=== PATIENT | male | born 2000 | race African-American/Black ===

== ENCOUNTER 2020-09-17 21:50 | Inpatient (IN) ==
[~2020-09-17 21:50] MED LIST: CALCIUM CHLORIDE 10% 10 ML SYR IV ONE; SODIUM BICARB 8.4% INJ 50 MEQ/50 ML SYR IV ONE; SODIUM CHLORIDE 0.9% 10ML FLUSH IV ONE
[2020-09-17] MEDS ORDERED: POTASSIUM CHLORIDE 10 MEQ / 100ML WTR IV ONE (22:06)
[2020-09-17] MEDS ORDERED: POTASSIUM CHLORIDE / WTR 20 MEQ/100 ML PLCT IV ONE ×2 (22:13→22:55)
[2020-09-17 22:19] LABS: Basophils # (auto) 0.01 K/uL (0-0.2); Basophils % (auto) 0.1 %; Eosinophils # (auto) 0.01 K/uL (0-0.5); Eosinophils % (auto) 0.1 %; Hematocrit (blood only) 34.1 % (42-52); Hemoglobin 11.4 g/dL (14.0-18.0); Immature Granulocytes # (auto) 0.18 K/uL (0.00-0.02); Immature Granulocytes % (auto) 1.7 %; Lymphocytes # (auto) 2.55 K/uL (1.2-3.4); Lymphocytes % (auto) 24.1 %; Mean Corpuscular Hemoglobin 25.4 pg (25-34); Mean Corpuscular Hgb Conc 33.4 g/dL (32-36); Mean Corpuscular Volume 75.9 fL (80-100); Mean Platelet Volume 11.2 fL (7.4-10.4); Monocytes % (auto) 9.5 %; Neutrophils # (auto) 6.82 K/uL (1.4-6.5); Neutrophils % (auto) 64.5 %; Platelet Count 175 K/uL (130-400); RDW Coefficient of Variation 16.2 % (11.5-14.5); RDW Standard Deviation 44.8 fL (36.4-46.3); Red Blood Count 4.49 M/uL (4.7-6.1); White Blood Count 10.57 K/uL (4.8-10.8)
[2020-09-17] MEDS ORDERED: STAT IV Infusion **Titration per Protocol STA ×3 (22:24→22:30)
[2020-09-17] MEDS ORDERED: NOREPINEPHRINE/D5W 8 MG/508 ML IV ONE ×2 (22:27→23:56)
[2020-09-17] MEDS ORDERED: NOREPINEPHRINE/D5W 8 MG/508 ML BAG IV SCH (22:30)
[2020-09-17] MEDS ORDERED: EPINEPHrine/NSS 4 MG/254 ML BAG IV SCH (22:30)
[2020-09-17] MEDS ORDERED: VASOPRESSIN 20 UNITS in 0.9 % SODIUM CHLORIDE 100 ML IV SCH (22:30)
[2020-09-17 22:41] LABS: Alanine Aminotransferase 631 U/L (12-78); Albumin Level 2.8 gm/dl (3.4-5.0); Aspartate Aminotransferase 723 U/L (15-37); BUN Creatinine Ratio 11.8 (10-20); Bilirubin,Total 0.6 mg/dl (0.2-1); Blood Urea Nitrogen 39 mg/dl (7-18); Calcium 11.7 mg/dl (8.5-10.1); Carbon Dioxide 10 mmol/L (21-32); Chloride 107 mmol/L (98-107); Est GFR (African American) 29.6; Est GFR (Non-African American) 25.6; Glucose 800 mg/dl (70-99); Magnesium 5.2 mg/dl (1.8-2.4); Sodium 145 mmol/L (136-145)
[2020-09-17] MEDS ORDERED: SEVERE STRESS LEVEL ONE (22:43)
[2020-09-17] MEDS: VASOPRESSION #-# Do NOT Titrate #-# Option IV SCH (22:43)
[2020-09-17] MEDS ORDERED: INSULIN PROTOCOL GOAL RANGE ONE (22:43)
[2020-09-17] MEDS ORDERED: INSULIN REGULAR 250 UNITS in SODIUM CHLORIDE 0.9% 247.5 ML IV SCH (22:45)
--- NOTE | 2020-09-17 22:45 | Emergency Department Note ---
ED Visit Note I was asked to assist Dr. Mcdonough with placing a central line for a critical patient during a code. Procedure note: Left subclavian line supraclavicular approach Using emergent sterile technique during a patient code, a triple-lumen catheter was placed in the left subclavian vein using supraclavicular approach with ultrasound guidance. Seldinger technique was used. Triple-lumen catheter was placed. All ports flushed well. All ports returned blood. The ports were capped. The line was sutured in place. Sterile dressing placed. The patient did not receive any anesthesia as he was unresponsive at that time. Chest x-ray is pending. .
[2020-09-17 22:47] LABS: Alkaline Phosphatase 71 U/L (45-117); Globulin 2.9 gm/dl (2.5-4.0); Total Protein 5.7 gm/dl (6.4-8.2); Troponin I 0.022 ng/ml (0-0.045)
[2020-09-17] MEDS ORDERED: STAT IV STA (22:48)
--- NOTE | 2020-09-17 22:51 | Procedure Note ---
Procedure Note Date of Service September 17, 2020 Procedure date: Noted above Procedure: Radial artery cannulation Pre-procedure Diagnosis: Need for invasive monitoring, hypotension/frequent blood draws Post-procedure Diagnosis: same as above Prior to Procedure: Informed Consent: Emergent consent implied Attending Staff: Ronel Brothers DO Skin Prep: Chlorhexidine The identity of the patient was confirmed and a bedside time out was performed. Description of Procedure: After sterile prep and sterile drape utilizing standard sterile technique the superficial skin of the right radial artery was anesthetized. The target artery was identified via dynamic ultrasound guidance and entered with a 20-gauge arrow Angiocath. Pulsatile bright red blood return was noted. Via modified Seldinger technique the self-contained guidewire was advanced and the Angiocath advanced over the guidewire. The guidewire was removed and brisk arterial blood return was noted. The pressure monitor was connected, and the arterial line was secured via commercial securement device. A sterile dressing was then applied. Complications: None Estimated blood loss: Trace Patient tolerated the procedure well. Coding
[2020-09-17 22:57] LABS: iSTAT Arterial Blood Gas HCO3 14 meg/L (19-24); iSTAT Arterial Blood Gas pCO2 57 mmHg (35-46); iSTAT Arterial Blood Gas pH 7.01 (7.35-7.45); iSTAT Arterial Blood Gas pO2 > 420 mmHg (80-95); iSTAT Carbon Dioxide 16 mmol/L (24-31); iSTAT Hematocrit 30 % (42-52); iSTAT Hemoglobin 10.2 g/dl (14.0-18.0); iSTAT Potassium 2.8 mmol/L (3.3-5.0); iSTAT Sodium 144 mmol/L (135-144)
[2020-09-17] MEDS ORDERED: SODIUM BICARBONATE 8.4% 150 MEQ, POTASSIUM CHLORIDE 40 MEQ in DEXTROSE 5% 1,000 ML IV SCH (23:00)
--- NOTE | 2020-09-17 23:02 | Critical Care Consultation ---
Date of Consultation September 17, 2020 Assessment & Plan (1) Admitted to intensive care unit: Reason Critically Ill: 20-year-old male who is status post cardiac arrest x2 with ROSC with approximate total cumulative downtime of 45 to 50 minutes. Patient with significant metabolic acidosis resulting in significant metabolic derangement including hypokalemia. Concerns for severe DKA and hyperglycemia requiring insulin drip and close electrolyte monitoring/replacement. NEURO - * CAM ICU: Unable to assess secondary to current level of extremitas. * Unresponsive: * Patient remains unresponsive and without response to noxious stimuli status post cardiac arrest. * Will obtain CT head when/if patient becomes clinically stable. * Will hold on sedation at this point. * Patient already hypothermic. Will aim to maintain goal temperature of 34 C for chance of neuro protection. CARDIAC/VASCULAR - * Cardiac arrest: * Likely secondary to profound acidemia in the setting of metabolic acidosis. * Patient had approximate total cumulative downtime of 45 to 50 minutes per reports. * Will continue to perform serial EKGs. * Will continue with therapeutic hypothermia and aim for goal core temp of 34 C. * Requiring escalating doses of pressors: Levophed, epinephrine, vasopressin. * Unfortunately, with the degree of metabolic acidosis, these drugs are likely minimally effective. * Agree with a.m. echocardiogram for cardiac function status post arrest. * Monitor on telemetry. RESPIRATORY - * Respiratory failure: * In the setting of cardiac arrest. * Ventilating well on standard settings. * Will hyperventilate in an effort to aid in reducing effects of metabolic acidosis. GI/NUTRITION - * Patient with nausea, vomiting, diarrhea, and abdominal pain prior to arrest.: * Abdomen soft and without distention or guarding. * Will perform CT of abdomen/pelvis when patient clinically stable. * Elevated LFTs likely secondary to shock liver. RENAL/LYTES - * Renal failure: * Likely secondary to dehydration and hypoperfusion injury in the setting of cardiac arrest. * Will continue with aggressive IV fluid resuscitation. * Hypokalemia: * Possibly from GI losses with reports of nausea, vomiting, and diarrhea for 1 week. * Certainly in combination of metabolic acidosis, this makes the patient at much higher risk for cardiac dysrhythmias. * Central line in place so we will continue to replace IV vitamin K aggressively with 20 mEq via central line every hour. * Will add potassium to IV fluids as well. * Unfortunately, patient is requiring insulin drip as well as sodium bicarbonate which unfortunately will likely continue to deplete potassium levels making replacement much more difficult. * Metabolic acidosis: * Multifactorial in the setting of cardiac arrest with acute renal failure, hyperglycemia, and lactic acidosis. * Initially received bicarb pushes. * Will start bicarb drip with 3 A sodium bicarbonate and sterile water and 40 mEq of potassium chloride. - * Short in place - Strict I&Os. ENDO - * DKA: * BSGs per unit protocol. ISS --> gtt per unit policy. * Patient without known history of diabetes. * Patient was with symptoms of nausea, vomiting, diarrhea, abdominal pain for approximately 1 week. Question if patient was presenting with progressively worsening DKA at that point. * No reports as the patient's respiratory status or any degree of compensation while in the [facility]. HEME - * Stable H&H. ID - * Without acute infectious findings. * Will add CT chest, head, and abdomen/pelvis for possible sources. * COVID-19 PCR testing negative. LINES/IV ACCESS - * PIVs x2 * LEFT subclavian CVL * RIGHT radial arterial line * Short catheter * ET tube * OG DVT PROPHYLAXIS - * Will hold currently given recent trauma and arrest with risk of bleeding. * SCDs I have personally spent 80 minutes of critical care time in the direct management of this patient. This is a life/limb threatening event. This includes time spent evaluating patient, direct bedside care, chart review, placing orders, interpretation of diagnostic studies, discussion with consultants, patient, and family members, as well as other required patient management activities. This time is exclusive of all separately billable procedures, and teaching time and separate from and in addition to any other critical care service time. Thank you for allowing us to participate in the care of this patient. Please refer to my attending physician's documentation for any further recommendations. (2) Cardiac arrest: (3) JEROMY (acute kidney injury): (4) Acute hypokalemia: (5) Metabolic acidosis: (6) DKA (diabetic ketoacidoses): (7) Hypothermia: (8) Abnormal LFTs: (9) Hypermagnesemia: Supervising Physician Co-Signing Physician Notes I have personally evaluated and examined this patient. I agree with assessment and plan of Morgan Koenig PA-C. Cardiac arrest with return of spontaneous circulation. Patient is already hypothermic, will continue with surface cooling as intravascular cooling devices already being utilized. Significant hypokalemia will require aggressive repletion. Patient certainly critically ill. History of Present Illness History of Present Illness Patient is a 20-year-old male with no reported significant past medical history who presented to the emergency department as a CODE BLUE. The patient is currently incarcerated at [facility]. Per discussion with ED provider, the patient had recently [facility] secondary to complaints of nausea, vomiting, and diarrhea. Apparently, the patient was found on the ground today. EMS was contacted, and the patient did arrest prior to EMS arrival. Patient was down for approximately 10 minutes prior to EMS arrival. CPR was initiated by [facility] staff. Patient received 4 rounds of epinephrine and high- quality CPR with return of spontaneous circulation upon arrival to the emergency department. Patient had been intubated in the field. Patient's blood glucose was noted to be severely elevated earlier in the day. He had received 20 units of subcu insulin at some point. The patient received bicarb doses during resuscitation. Unfortunately, patient was found to be hypokalemic as well as in severe metabolic acidosis. He remained hypotensive while on max doses of epinephrine. Addition of norepinephrine and vasopressin in the emergency department. Orders placed for bicarb drip with potassium supplementation as well as potassium riders. CT scans were ordered, however unable to be obtained secondary to patient's instability. I did reach out to the [facility] at [facility] ([phone]) and spoke with staff nurse, Earline. She informed me that the patient had been admitted to the [facility] on 09/15 with complaints of nausea, vomiting, and diarrhea. Apparently, the patient had some complaints of abdominal pain as well. Per his records, he had been receiving Phenergan regularly. He did receive a liter of fluid at some point during his stay. Patient was tested for COVID-19 which had come back negative. She reports that per the report that she received, the patient was found facedown on the unit. He initially was mumbling and semicoherent when found. EMS was contacted, but prior to their arrival, the patient was found to be extremely hypotensive and hypothermic. Patient did lose his pulse and CPR was initiated which was conducted for approximately 10 minutes prior to EMS arrival. No labs other than glucose or COVID-19 testing had been obtained during his 48-hour stay. Patient is with no other reported past medical history. Allergies Allergy/AdvReac Type Severity Reaction Status Date / Time No Known Allergies Allergy Unverified 09/17/20 23:22 Home Medications Medication Instructions Recorded Confirmed Type No Known Home Medications 09/17/20 09/17/20 History mirtazapine 15 mg PO HS 09/17/20 09/17/20 History Patient History Medical History Diabetes Social History Smoking Status: Unknown if ever smoked Preferred Language: [place] Beliefs That Will Affect Care: None Current Living Situation: Other current occupational status: other Feels Safe at Home: Yes Review of Systems Review of Systems: Unobtainable due to endotracheal tube and Unobtainable due to reduced consciousness Physical Exam Physical Exam: VITAL SIGNS - Vital signs and nursing notes were reviewed. GENERAL - 20-year-old male appearing his stated age who is in severe extremis. SKIN - Without rashes. HEAD - NC/AT. EYES - Pupils fixed and non-reactive. EARS - No deformities of external structures noted on gross examination bilaterally. NOSE - Midline and without cyanosis. No epistaxis or purulent drainage noted. MOUTH/OROPHARYNX - ET Tube in place. NECK - Neck with FROM. Supple to palpation. No nuchal rigidity. LUNGS - Normal vesicular breath sounds CTA B/L. No wheezes, rales, or rhonchi appreciated. CARDIAC - RRR with S1/S2. No murmur, rubs, or gallops appreciated. ABDOMEN - Abdominal contour flat without pulsations or visible masses. BS hypoactive all four quadrants. No distention or guarding noted. EXTREMITIES - No clubbing or peripheral cyanosis. No pretibial edema present. +2/5 radial pulses palpated throughout. NEUROLOGIC - No focal neurological deficits appreciated. Pupils fixed and non- reactive. Slight cough with suctioning. No response to noxious stimuli. Results & Data Results & Data ([facility]) Vital Signs (Past 12 Hours) Vital Signs Temp Pulse Resp Pulse Ox 09/17/20 22:21 100 09/17/20 22:00 31 C L 75 21 100 Coding Level of Care Code Critical Care 1st 30-74 mins Diagnoses Admitted to intensive care unit Z78.9 Cardiac arrest I46.9 JEROMY (acute kidney injury) N17.9 Acute hypokalemia E87.6 Metabolic acidosis E87.2 DKA (diabetic ketoacidoses) E13.11 Diabetes mellitus complication detail: with coma Diabetes mellitus type: other specified (including WENDY) Hypothermia T68.XXXA Encounter type: initial encounter Abnormal LFTs R94.5 Hypermagnesemia E83.41 Time Spent (min) 80 (1) DKA (diabetic ketoacidoses) Diabetes mellitus complication detail: with coma Diabetes mellitus type: other specified (including WENDY) Qualified Code(s): E13.11 - Other specified diabetes mellitus with ketoacidosis with coma (2) Hypothermia Encounter type: initial encounter Qualified Code(s): T68.XXXA - Hypothermia, initial encounter
[2020-09-17] MEDS: [UNRECOGNIZED DRUG - OTHER] IV SCH (23:19)
[2020-09-17] MEDS: MAX IV SCH (23:19)
[2020-09-17 23:29] LABS: Appearance Urine Clear (Clear); Bacteria Urine Automated Negative (Negative); Bilirubin Urine Negative (Negative); Blood Urine 3+ (Negative); Color Urine Yellow; Epithelial Cell Urine Auto >30 /lpf (0-5); Glucose Urine UA 3+ (Negative); Ketones Urine 3+ (Negative); Leukocyte Esterase Urine Negative (Negative); Nitrite Urine Negative (Negative); Protein Urine 1+ (Negative); RBC Urine Automated 0-4 /hpf (0-4); Specific Gravity Urine 1.025 (1.000-1.030); Urobilinogen Urine Negative (Negative)
--- NOTE | 2020-09-17 23:31 | Emergency Department Note ---
History of Present Illness General Chief complaint: Cardiac Arrest/CPR Stated complaint: CARDIAC ARREST Source: EMS and RN notes reviewed Mode of arrival: EMS Limitations: clinical acuity History of Present Illness Provider complaint: Cardiac arrest Onset (ago): hour(s) History is limited due to the patient being intubated and status post cardiac arrest. I did obtain history from the charge nurse who spoke to the the [facility] as well as the county auditor who brought him in. Apparently this patient was not feeling well yesterday with flulike symptoms and went to the [facility]. He was admitted to the [facility] where he was found to have a blood sugar over 600. He did have a COVID-19 test which was reported as negative. Today he complained of some abdominal pain. They later reassessed the patient about 40 minutes later and he was unresponsive with agonal breathing. They found his blood sugar to be over 600. He was given 20 units of insulin subcutaneously. He then proceeded to go into cardiac arrest. When the paramedics arrived he was in asystole. He had no IV access so a IO was placed. CPR was started and he did receive 3 rounds of epinephrine. He was also given an amp of calcium and 2 A of bicarb. They did obtain ROSC. The patient was intubated and transported here. Home Medications Medication Instructions Recorded Confirmed Type No Known Home Medications 09/17/20 09/17/20 History mirtazapine 15 mg PO HS 09/17/20 09/17/20 History Allergies Allergy/AdvReac Type Severity Reaction Status Date / Time No Known Allergies Allergy Unverified 09/17/20 23:22 Past Med/Surg History Medical History Diabetes Social History Smoking Status: Unknown if ever smoked Preferred Language: Pashto current occupational status: other Feels Safe at Home: Yes Review of Systems See HPI for pertinent positives & negatives. Unobtainable due to endotracheal tube Physical Exam Vital Signs Vital Signs - 24 hr 09/17/20 22:00 09/17/20 22:21 09/17/20 22:59 Temperature 31 C L Temperature Source Short Cath ( Temp Sensing) Pulse Rate 75 Respiratory Rate 21 Respiratory Effort / Characteristics Mechanically Ventilated Pulse Oximetry 100 100 Oxygen Delivery Method Mechanical Vent Mechanical Vent Mechanical Vent Sepsis Recent Fever Within 48 Hours No Sepsis New/Unexplained Change in Mental Status Yes Sepsis Action Taken by Nursing Physician Notified The physical exam is limited due to the patient's condition. Constitutional: Vital signs reviewed. Eyes: Pupils are equal round and minimally reactive to light. Conjunctiva are noninjected. HENT: Intubated with endotracheal tube. Normocephalic atraumatic without hemo tympanum. Respiratory: Clear to auscultation bilaterally. Breath sounds are equal bilaterally. Cardiovascular: Irregularly irregular rhythm. Normal rate. GI: Soft and nondistended. Musculoskeletal: No peripheral edema. IO in the right mann. Integumentary: No cyanosis. Neurological: The patient is unresponsive. Psychiatric: Unable to assess. Course Administered Medications Potassium Chloride (K Anurag / Wtr) 20 meq in 100 mls @ 50 mls/hr IV ONE ONE Stop: 09/18/20 00:12 Last Admin: 09/17/20 22:33 Dose: Not Given Documented by: [id number] Vasopressin 20 units/ Sodium (Chloride) 101 mls @ 12.12 mls/hr IV .Q8H20M [facility] Stop: 10/17/20 22:44 Last Admin: 09/17/20 22:43 Dose: 0.04 unit/min, 12.1 mls/hr Documented by: [id number] Cosigned by: [id number] Insulin Human Regular 250 (units/ Sodium Chloride) 250 mls @ 4.2 mls/hr IV .Q24H [facility]; Protocol Stop: 10/17/20 22:44 Last Admin: 09/17/20 23:18 Dose: 4.2 units/hr, 4.2 mls/hr Documented by: [id number] Cosigned by: [id number] Sodium Bicarbonate 150 meq/Potassium Chloride 40 meq/Dextrose 1,170 mls @ 200 mls/hr IV .Q5H51M [facility] Stop: 10/17/20 22:59 Last Admin: 09/17/20 23:03 Dose: 200 mls/hr Documented by: [id number] Potassium Chloride (K Anurag / Wtr) 20 meq in 100 mls @ 50 mls/hr IV ONE ONE Stop: 09/18/20 00:54 Last Admin: 09/17/20 23:19 Dose: 50 mls/hr Documented by: [id number] Epinephrine HCl () 16 mg in 250 mls @ 2.119 mls/hr IV .Q24H [facility]; Protocol Stop: 10/17/20 22:59 Last Admin: 09/17/20 23:19 Dose: 0.5 mcg/kg/min, 53 mls/hr Documented by: [id number] Cosigned by: [id number] Discontinued Medications Epinephrine HCl () 4 mg in 254 mls @ 8.611 mls/hr IV .Q24H [facility]; Protocol Stop: 10/17/20 22:29 Last Titration: 09/17/20 23:25 Dose: 0 mcg/kg/min, 0 mls/hr Documented by: [id number] Titration: 09/17/20 22:51 Dose: 1 mcg/kg/min, 430.5 mls/hr Documented by: [id number] Admin: 09/17/20 22:37 Dose: 0.7 mcg/kg/min, 301.4 mls/hr Documented by: [id number] Cosigned by: [id number] Norepinephrine Bitartrate (Levophed/D5w) 8 mg in 508 mls @ 21.527 mls/hr IV .[id number] [facility]; Protocol Stop: 10/17/20 22:29 Last Titration: 09/17/20 22:50 Dose: 0.6 mcg/kg/min, 258.3 mls/hr Documented by: [id number] Admin: 09/17/20 22:34 Dose: 0.4 mcg/kg/min, 172.2 mls/hr Documented by: [id number] Cosigned by: [id number] Norepinephrine Bitartrate (Norepinephrine/D5w 8 Mg/508 Ml) Confirm Administered Dose 8 mg IV .STK-MED ONE Stop: 09/17/20 22:28 Last Admin: 09/17/20 22:37 Dose: Not Given Documented by: [id number] Potassium Chloride (Potassium Chloride 10 Meq / 100ml Wtr) Confirm Administered Dose 40 meq IV .STK-MED ONE Stop: 09/17/20 22:07 Last Admin: 09/17/20 22:33 Dose: 40 meq Documented by: [id number] Critical Care Time Critical Care Time: Yes Total Critical Care Time: 50 I have personally spent approximately 50 minutes of critical care time in the direct management of this patient. This includes bedside care, interpretation of diagnostic studies, and testing, discussion with consultants, patient, and family members, and other required patient management activities. These minutes are in excess of all separately billable procedures. Medical Decision Making Differential Diagnosis Cardiac arrest, metabolic derangement, DKA, electrolyte abnormality, metabolic acidosis, PE, intracranial hemorrhage Medical Records Attestation: I reviewed the patient's medical records. I did perform a limited focused review of portions of the patient's old chart on the electronic medical record. The patient has had no prior visits to this hospital. Home Medications Current Medication List: was personally reviewed by me Laboratory Data Attestation: I reviewed the patient's lab results. Result diagrams: 09/17/20 22:00 09/17/20 22:00 Lab Results 09/17/20 09/17/20 09/17/20 Range/Units 22:00 22:00 22:38 WBC 10.57 (4.8-10.8) K/uL RBC 4.49 L (4.7-6.1) M/uL Hgb 11.4 L (14.0-18.0) g/dL POC Hgb (14.0-18.0) g/dl Hct 34.1 L (42-52) % POC Hct (42-52) % MCV 75.9 L (80-100) fL MCH 25.4 (25-34) pg MCHC 33.4 (32-36) g/dL RDW Std Deviation 44.8 (36.4-46.3) fL RDW Coeff of Fermin 16.2 H (11.5-14.5) % Plt Count 175 (130-400) K/uL MPV 11.2 H (7.4-10.4) fL Immature Gran % (Auto) 1.7 % Neut % (Auto) 64.5 % Lymph % (Auto) 24.1 % Caldwell % (Auto) 9.5 % Eos % (Auto) 0.1 % Baso % (Auto) 0.1 % Neut # (Auto) 6.82 H (1.4-6.5) K/uL Lymph # (Auto) 2.55 (1.2-3.4) K/uL Caldwell # (Auto) 1.00 H (0.11-0.59) K/uL Eos # (Auto) 0.01 (0-0.5) K/uL Baso # (Auto) 0.01 (0-0.2) K/uL Immature Gran # (Auto) 0.18 H (0.00-0.02) K/uL POC pH (7.35-7.45) POC pCO2 (35-46) mmHg POC pO2 (80-95) mmHg POC HCO3 (19-24) katlin/L POC Total CO2 (24-31) mmol/L POC Base Excess (-9-1.8) katlin/L POC ABG O2 Sat (90-95) % POC Sodium (135-144) mmol/L Sodium 145 (136-145) mmol/L POC Potassium (3.3-5.0) mmol/L Potassium 2.0 L* (3.5-5.1) mmol/L Chloride 107 (98-107) mmol/L Carbon Dioxide 10 L (21-32) mmol/L Anion Gap 28.0 H (3-11) BUN 39 H (7-18) mg/dl Creatinine 3.27 H (0.6-1.4) mg/dl Est Cr Clr Drug Dosing Not Reportable Est GFR ( Amer) 29.6 Est GFR (Non-Af Amer) 25.6 BUN/Creatinine Ratio 11.8 (10-20) Glucose 800 H* (70-99) mg/dl POC Glucose > 600 H* (70-99) mg/dl Calcium 11.7 H (8.5-10.1) mg/dl Magnesium 5.2 H* (1.8-2.4) mg/dl Total Bilirubin 0.6 (0.2-1) mg/dl AST 723 H (15-37) U/L ALT 631 H (12-78) U/L Alkaline Phosphatase 71 (45-117) U/L Troponin I 0.022 (0-0.045) ng/ml Total Protein 5.7 L (6.4-8.2) gm/dl Albumin 2.8 L (3.4-5.0) gm/dl Globulin 2.9 (2.5-4.0) gm/dl Albumin/Globulin Ratio 1.0 (0.9-2) Beta-Hydroxybutyric Acd (0.2-2.81) mg/dl TSH 1.760 (0.300-4.500) uIu/ml 09/17/20 Range/Units 22:43 WBC (4.8-10.8) K/uL RBC (4.7-6.1) M/uL Hgb (14.0-18.0) g/dL POC Hgb 10.2 L (14.0-18.0) g/dl Hct (42-52) % POC Hct 30 L (42-52) % MCV (80-100) fL MCH (25-34) pg MCHC (32-36) g/dL RDW Std Deviation (36.4-46.3) fL RDW Coeff of Fermin (11.5-14.5) % Plt Count (130-400) K/uL MPV (7.4-10.4) fL Immature Gran % (Auto) % Neut % (Auto) % Lymph % (Auto) % Caldwell % (Auto) % Eos % (Auto) % Baso % (Auto) % Neut # (Auto) (1.4-6.5) K/uL Lymph # (Auto) (1.2-3.4) K/uL Caldwell # (Auto) (0.11-0.59) K/uL Eos # (Auto) (0-0.5) K/uL Baso # (Auto) (0-0.2) K/uL Immature Gran # (Auto) (0.00-0.02) K/uL POC pH 7.01 L* (7.35-7.45) POC pCO2 57 H (35-46) mmHg POC pO2 > 420 H (80-95) mmHg POC HCO3 14 L (19-24) katlin/L POC Total CO2 16 L (24-31) mmol/L POC Base Excess -17.0 L (-9-1.8) katlin/L POC ABG O2 Sat 100.0 H (90-95) % POC Sodium 144 (135-144) mmol/L Sodium (136-145) mmol/L POC Potassium 2.8 L (3.3-5.0) mmol/L Potassium (3.5-5.1) mmol/L Chloride (98-107) mmol/L Carbon Dioxide (21-32) mmol/L Anion Gap (3-11) BUN (7-18) mg/dl Creatinine (0.6-1.4) mg/dl Est Cr Clr Drug Dosing Est GFR ( Amer) Est GFR (Non-Af Amer) BUN/Creatinine Ratio (10-20) Glucose (70-99) mg/dl POC Glucose (70-99) mg/dl Calcium (8.5-10.1) mg/dl Magnesium (1.8-2.4) mg/dl Total Bilirubin (0.2-1) mg/dl AST (15-37) U/L ALT (12-78) U/L Alkaline Phosphatase (45-117) U/L Troponin I (0-0.045) ng/ml Total Protein (6.4-8.2) gm/dl Albumin (3.4-5.0) gm/dl Globulin (2.5-4.0) gm/dl Albumin/Globulin Ratio (0.9-2) Beta-Hydroxybutyric Acd (0.2-2.81) mg/dl TSH (0.300-4.500) uIu/ml Imaging Data Attestation: I personally reviewed and interpreted this imaging study as follows: My Impression: Chest x-ray per my interpretation shows no infiltrate or pneumothorax. Endotracheal tube is in place. Left subclavian central line in place as well. ECG Data Attestation: I personally reviewed and interpreted this ECG as follows: Indication: + other (Status post cardiac arrest) Rate (beats per minute): 85 Rhythm: + atrial fibrillation ECG Findings: + PVCs and + Other (Widened QRS) Comparison ECG Date: no prior available MDM Narrative I did evaluate the patient immediately on arrival as noted above. IV access was established. The patient is hypothermic. I did place an order for continuous cardiac monitoring. The monitor showed an irregular wide-complex rhythm without visible P waves. He did have a pulse. Systolic blood pressure was 103. I did order and personally review the patient's 12-lead EKG as described above. He has what appears to be atrial fibrillation with a widened QRS. The patient subsequently went into cardiac arrest. His rhythm showed asystole. CPR was initiated. The patient was given IV boluses of epinephrine. I did order and review the patient's blood work as noted in the electronic medical record. I- STAT labs demonstrated a potassium of less than 2, hyperglycemia and a creatinine of 2.5. I did speak to the pharmacist and the patient was started on 20 mEq of IV KCl over an hour. ROSC was obtained. The patient was started on epinephrine drip. A central line was placed in the left subclavian vein by Dr. Lemus and the patient's rate was changed to 40 mEq over an hour. I did order and personally reviewed the images of the patient's chest x-ray as described above. Endotracheal tube is in place and left subclavian line is in place as well. No pneumothorax is noted. I did order a urine analysis and urine drug screen. I did order CTs of the head, abdomen, pelvis and chest but the patient was too unstable to go to CAT scan. I did discuss the case with the ICU doctor as well as the hospitalist. The patient's blood pressure was still low and so IV Levophed drip was started as well as IV vasopressin. He was given 2 additional amps of bicarb IV. His blood gas showed a pH of 7.0. His other labs demonstrated hemoglobin 11.4. His white count was 10.5. Platelet count was within normal limits. Magnesium is elevated at 5.2. Glucose is 800. Creatinine is 3.27. Potassium was reported at 2. LFTs show elevation in the transaminases. I did order a repeat renal panel. This showed a potassium of 3. 1. Creatinine is 3.1. Magnesium is still 5.2 and glucose has come down to 693. The patient was transferred to the ICU in critical condition. Impression & Plan Cardiac arrest, Acute hypokalemia, JEROMY (acute kidney injury), Hypermagnesemia, Abnormal LFTs, Anemia, Hypothermia, DKA (diabetic ketoacidoses) Discharge Plan Visit Data Chief Complaint: Cardiac Arrest/CPR Stated Complaint: CARDIAC ARREST ED Provider: Don Mcdonough Discharge Problem: Cardiac arrest, Acute hypokalemia, JEROMY (acute kidney injury), Hypermagnesemia, Abnormal LFTs, Anemia, Hypothermia, DKA (diabetic ketoacidoses) Patient Disposition: Admitted As Inpatient Discharge Problem: Anemia Qualifiers: Anemia type: unspecified type Qualified Code(s): D64.9 - Anemia, unspecified Hypothermia Qualifiers: Encounter type: initial encounter Qualified Code(s): T68.XXXA - Hypothermia, initial encounter DKA (diabetic ketoacidoses) Qualifiers: Diabetes mellitus type: other specified (including WENDY) Diabetes mellitus complication detail: with coma Qualified Code(s): E13.11 - Other specified diabe chay mellitus with ketoacidosis with coma
[2020-09-17 23:38] LABS: BUN Creatinine Ratio 11.9 (10-20); Blood Urea Nitrogen 37 mg/dl (7-18); Calcium 9.3 mg/dl (8.5-10.1); Carbon Dioxide 7 mmol/L (21-32); Chloride 111 mmol/L (98-107); Est GFR (African American) 31.6; Est GFR (Non-African American) 27.3; Glucose 693 mg/dl (70-99); Magnesium 5.2 mg/dl (1.8-2.4); Potassium 3.1 mmol/L (3.5-5.1); Sodium 148 mmol/L (136-145)
[2020-09-17 23:44] LABS: Amphetamines+Metham, Urine Neg (Neg); Barbiturates, Urine Neg (Neg); Benzodiazepine, Urine Neg (Neg); Cocaine, Urine Neg (Neg); MDMA (Ecstacy), Urine Neg (Neg); Methadone, Urine Neg (Neg); Opiate, Urine Neg (Neg); Phencyclidine, Urine Neg (Neg)
[2020-09-18] MEDS ORDERED: SODIUM BICARB 8.4% INJ 50 MEQ/50 ML SYR IV STA ×2 (00:05→05:52)
[2020-09-18] MEDS ORDERED: SODIUM BICARB 8.4% INJ 50 MEQ/50 ML SYR IV ONE ×2 (00:07→11:09)
[2020-09-18 00:16] LABS: iSTAT Art Bld Gas pCO2 Correct 23 mmHg (35-46); iSTAT Art Bld Gas pH Corrected 6.934 (7.35-7.45); iSTAT Arterial Blood Gas HCO3 5 meg/L (19-24); iSTAT Arterial Blood Gas pCO2 30 mmHg (35-46); iSTAT Arterial Blood Gas pH 6.86 (7.35-7.45); iSTAT Arterial Blood Gas pO2 291 mmHg (80-95); iSTAT Arterial Blood Gas pO2 C 260; iSTAT Carbon Dioxide 6 mmol/L (24-31); iSTAT FiO2 50 %; iSTAT Hematocrit 32 % (42-52); iSTAT Hemoglobin 10.9 g/dl (14.0-18.0); iSTAT Potassium 2.8 mmol/L (3.3-5.0); iSTAT Site Art Line; iSTAT Sodium 138 mmol/L (135-144)
[2020-09-18] MEDS ORDERED: ICU PROTOCOL FOR HYPERGLYCEMIA PRN (00:23)
[2020-09-18] MEDS ORDERED: ALBUT/IPRATROP 3MG/0.5MG NEB 3 ML VIAL INH PRN (00:23)
[2020-09-18] MEDS: Double Conc 32mcg/mL; 16mg in 500mL IV SCH ×2 (00:27→02:14)
[2020-09-18] MEDS ORDERED: PHARMACY GLYCEMIC MGMT CONSULT PRN (00:31)
[2020-09-18 00:34] LABS: Influenza A virus by PCR Negative (Neg); Influenza B virus by PCR Negative (Neg); RSV by PCR Negative (Neg); SARS CoV2 RNA(COVID-19) InHosp NEGATIVE (Negative)
[2020-09-18] MEDS: FAMOTIDINE 20 MG in SYRINGE 3 ML IV SCH ×2 (00:57→08:02)
[2020-09-18 01:10] LABS: Hematocrit (blood only) 32.3 % (42-52)
[2020-09-18 01:44] LABS: BUN Creatinine Ratio 12.1 (10-20); Blood Urea Nitrogen 43 mg/dl (7-18); Carbon Dioxide 7 mmol/L (21-32); Chloride 103 mmol/L (98-107); Est GFR (African American) 26.7; Est GFR (Non-African American) 23.1; Glucose 954 mg/dl (70-99); Magnesium 6.9 mg/dl (1.8-2.4); Phosphorus 8.8 mg/dl (2.5-4.9); Potassium 2.3 mmol/L (3.5-5.1); Sodium 145 mmol/L (136-145)
[2020-09-18] MEDS ORDERED: GLUCOSE 10 TABS/TUBE PO PRN (02:00)
[2020-09-18] MEDS ORDERED: CARBOHYDRATES FOR HYPOGLYCEMIA PO PRN (02:00)
[2020-09-18] MEDS ORDERED: GLUCAGON FOR INJ 1 MG VIAL SQ PRN (02:00)
[2020-09-18] MEDS ORDERED: GLUCOSE 40% GEL 15 GM TUBE PO PRN (02:00)
[2020-09-18] MEDS ORDERED: DEXTROSE 50% 50 ML SYRINGE IV PRN (02:00)
[2020-09-18 02:06] LABS: Beta-Hydroxybutyrate 111.16 mg/dl (0.2-2.81)
[2020-09-18] MEDS: [UNRECOGNIZED DRUG - OTHER] IV SCH ×5 (02:13→17:13)
[2020-09-18] MEDS: POTASSIUM CHLORIDE / WTR 20 MEQ/100 ML PLCT IV SCH ×8 (02:13→11:37)
[2020-09-18] MEDS: MAX IV SCH ×5 (02:13→17:13)
[2020-09-18 02:36] LABS: iSTAT Art Bld Gas pCO2 Correct 19 mmHg (35-46); iSTAT Art Bld Gas pH Corrected 7.028 (7.35-7.45); iSTAT Arterial Blood Gas HCO3 6 meg/L (19-24); iSTAT Arterial Blood Gas pCO2 25 mmHg (35-46); iSTAT Arterial Blood Gas pH 6.96 (7.35-7.45); iSTAT Arterial Blood Gas pO2 152 mmHg (80-95); iSTAT Arterial Blood Gas pO2 C 119; iSTAT Carbon Dioxide 6 mmol/L (24-31); iSTAT FiO2 35 %; iSTAT Hematocrit 31 % (42-52); iSTAT Hemoglobin 10.5 g/dl (14.0-18.0); iSTAT Potassium < 2.0 mmol/L (3.3-5.0); iSTAT Site Art Line; iSTAT Sodium 137 mmol/L (135-144)
[2020-09-18 02:54] LABS: Troponin I 0.037 ng/ml (0-0.045)
--- NOTE | 2020-09-18 04:25 | History & Physical Report ---
Date of Service September 18, 2020 Patient was seen and examined on September 17, 2020 Assessment & Plan (1) Admitted to intensive care unit: Patient is admitted to the ICU status post cardiac arrest in the field- Consult production engineer team. Continue ventilator adjustments, with serial ABGs Present on Admission?: Yes (2) Cardiac arrest: Cardiac arrest/cardiogenic shock- Transferred to the ICU on Levophed, phenylephrine, bicarb drip. Order complete echocardiogram. Consult cardiology Present on Admission?: Yes (3) Acute hypokalemia: Replacing IV and follow serial laboratories Present on Admission?: Yes (4) JEROMY (acute kidney injury): Creatinine 3.10 with no known baseline. Question issue of diabetic nephropathy, ischemia, infection or other. Follow serial laboratories. Present on Admission?: Yes (5) Hypermagnesemia: Magnesium level 5.2 upon admission. Follow serial labs. May require dialysis Present on Admission?: Yes (6) Abnormal LFTs: Unclear etiology. Maybe associated with diabetes, obesity, hepatic steatosis, ischemia, medication induced, other Present on Admission?: Yes (7) Anemia: Hemoglobin 11.4 upon admission. Unknown baseline May be associated with blood loss, kidney injury, nutritional, other Present on Admission?: Yes (8) DKA (diabetic ketoacidoses): ABG upon arrival 7.01/57/>4 20/14/100.0 Continue bicarbonate drip, and adjusting ventilator settings. Follow serial ABGs. Continue insulin drip Present on Admission?: Yes (9) Diabetes: Check hemoglobin A1c No reported home medications Present on Admission?: Yes (10) Hypothermia: Temperature 87.8 upon admission. Not rewarmed due to hypothermia protocol Present on Admission?: Yes Admission and Anticipated Discharge Date Admission Date: September 17, 2020 History of Present Illness Chief Complaint: The patient presents to the emergency department status post cardiac arrest and intubation while in the [facility] Primary Care Provider: SHELDON Paul The patient is a 20-year-old male who reportedly had not been feeling well yesterday, and presented to the infirmary at the skilled nursing with flulike symptoms. He was found to have blood sugar over 600 while there, was given insulin 20 units subcu, and went into cardiac arrest. EMS found the patient to be in asystole, had an IO placed, CPR was started, and received 3 rounds of epinephrine and amp of calcium and 2 A of bicarb. They did obtain ROSC, the patient was intubated and transferred to [facility] ED. Pertinent laboratories: COVID-19 negative, hemoglobin 11.4, ABG showed a pH of 7.01, PCO2 57, PO2 greater than 420, bicarb 14 and O2 sat 100.0. Sodium 148 potassium 3.1, chloride 111, bicarb 7, BUN 37, creatinine 3.10 glucose is 693. Magnesium is 5.2, AST 723, ALT 631, total CK 1679, albumin 2.8, beta hydroxybutyric acid 103.50 urine drug screen was negative. Chest x-ray was normal. While in the ED, patient was started on insulin drip, norepinephrine drip, bicarbonate drip and vasopressin drip. Allergies Allergy/AdvReac Type Severity Reaction Status Date / Time No Known Allergies Allergy Unverified 09/17/20 23:22 Home Medications Medication Instructions Recorded Confirmed Type No Known Home Medications 09/17/20 09/17/20 History mirtazapine 15 mg PO HS 09/17/20 09/17/20 History Past Med/Surg History Medical History Diabetes Social History Smoking Status: Unknown if ever smoked Preferred Language: Latvian Beliefs That Will Affect Care: None Current Living Situation: Other current occupational status: other Feels Safe at Home: Yes Review of Systems Review of Systems: Unobtainable due to reduced consciousness Physical Exam 2 Physical Exam: The patient is unresponsive, intubated, normocephalic and atraumatic. HEENT--PERRL, EOMI, mucous membranes and oropharynx dry. Neck--No JVD. No bruits. Thyroid normal, trachea midline, no adenopathy. Heart--irregularly irregular. Intermittently normal. No murmurs, rubs or gallops. Lungs--clear bilaterally. Abdomen--normal bowel sounds and soft. Nontender. Nondistended. Mildly obese Extremities--no cyanosis or clubbing. No edema. Dermatologic--normal skin turgor, normal color, no abnormal lymph nodes, no rash. Neurologic--limited exam Rheumatologic--deferred Psychiatric--unresponsive Results & Data Results & Data ([facility]) Vital Signs (Past 12 Hours) Vital Signs Temp Pulse Pulse Resp BP BP Pulse Ox 09/18/20 03:41 90.1 F L 81 98 09/18/20 03:40 90.1 F L 81 129/48 L 98 09/18/20 03:36 90.0 F L 81 98 09/18/20 03:34 90.0 F L 81 120/52 L 98 09/18/20 03:31 89.8 F L 82 98 09/18/20 03:30 89.8 F L 81 119/53 L 98 09/18/20 03:26 89.6 F L 80 98 09/18/20 03:24 89.6 F L 80 142/48 H 98 09/18/20 03:21 89.6 F L 80 98 09/18/20 03:19 89.4 F L 80 119/61 98 09/18/20 03:16 89.4 F L 80 98 09/18/20 03:14 89.4 F L 79 136/56 L 98 09/18/20 03:11 89.2 F L 79 99 09/18/20 03:09 89.2 F L 79 142/56 H 99 09/18/20 03:06 89.1 F L 79 99 09/18/20 03:04 89.1 F L 78 122/63 100 09/18/20 03:01 89.1 F L 79 99 09/18/20 02:59 88.9 F L 78 136/57 L 99 09/18/20 02:56 88.9 F L 79 99 09/18/20 02:54 88.9 F L 78 128/56 L 99 09/18/20 02:51 79 30 H 99 09/18/20 02:50 77 09/18/20 02:25 77 09/18/20 02:21 87.6 F L 76 141/65 H 100 09/18/20 02:20 87.6 F L 76 100 09/18/20 02:16 87.6 F L 75 126/69 100 09/18/20 02:15 87.4 F L 75 100 09/18/20 02:11 87.4 F L 75 137/60 100 09/18/20 02:10 87.4 F L 76 100 09/18/20 02:06 87.3 F L 75 136/73 100 09/18/20 02:05 87.3 F L 75 100 09/18/20 02:02 86.5 F L 79 30 H 78/45 L 100 09/18/20 02:01 87.3 F L 74 135/60 100 09/18/20 02:00 87.1 F L 74 100 09/18/20 01:56 87.1 F L 74 118/66 100 09/18/20 01:55 87.1 F L 73 100 09/18/20 01:51 86.9 F L 73 110/69 100 09/18/20 01:50 86.9 F L 73 100 09/18/20 01:46 86.9 F L 73 132/70 100 09/18/20 01:45 86.9 F L 72 100 09/18/20 01:41 86.9 F L 73 115/75 100 09/18/20 01:40 86.7 F L 72 100 09/18/20 01:37 86.7 F L 72 100 09/18/20 01:36 86.7 F L 72 126/69 100 09/18/20 01:31 86.7 F L 72 134/64 100 09/18/20 01:30 86.7 F L 72 100 09/18/20 01:26 86.5 F L 72 139/71 100 09/18/20 01:21 86.5 F L 71 124/72 100 09/18/20 01:16 86.5 F L 71 127/64 100 09/18/20 01:15 86.5 F L 72 100 09/18/20 01:11 86.5 F L 72 123/58 L 100 09/18/20 01:06 86.5 F L 72 128/58 L 100 09/18/20 01:01 86.4 F L 71 131/64 100 09/18/20 01:00 86.4 F L 71 100 09/18/20 00:56 86.4 F L 72 126/55 L 100 09/18/20 00:51 86.4 F L 72 129/65 100 09/18/20 00:46 86.4 F L 72 135/57 L 100 09/18/20 00:45 86.5 F L 72 100 09/18/20 00:41 86.5 F L 73 120/61 100 09/18/20 00:36 86.5 F L 73 117/57 L 100 09/18/20 00:31 86.5 F L 74 118/58 L 100 09/18/20 00:30 86.5 F L 74 100 09/18/20 00:26 86.5 F L 75 128/51 L 100 09/18/20 00:23 74 09/18/20 00:21 86.5 F L 75 112/47 L 100 09/18/20 00:16 86.5 F L 76 32 H 103/50 L 100 09/18/20 00:15 86.5 F L 75 100 09/18/20 00:06 86.7 F L 79 100 09/17/20 23:50 30 H 09/17/20 23:40 86.5 F L 79 100 09/17/20 23:25 87.6 F L 67 100 09/17/20 23:20 87.6 F L 67 108/50 L 100 09/17/20 23:15 87.6 F L 68 100 09/17/20 23:10 87.8 F L 68 100 09/17/20 23:06 87.8 F L 67 104/40 L 100 09/17/20 23:04 87.8 F L 68 100/40 L 100 09/17/20 23:01 88.0 F L 69 100 09/17/20 23:00 88.0 F L 69 100 09/17/20 22:56 88.0 F L 68 88/47 L 100 09/17/20 22:50 88.0 F L 70 79/41 L 100 09/17/20 22:45 88.2 F L 74 78/45 L 100 09/17/20 22:41 88.2 F L 74 54/40 L 100 09/17/20 22:35 88.3 F L 73 75/45 L 100 09/17/20 22:30 88.5 F L 67 58/29 L 100 09/17/20 22:27 88.5 F L 65 56/30 L 98 09/17/20 22:22 88.7 F L 99 H 47/33 L 97 09/17/20 22:21 100 09/17/20 22:18 88.9 F L 89 72/52 L 98 09/17/20 22:16 88.9 F L 88 74/45 L 09/17/20 22:15 88.9 F L 99 H 09/17/20 22:10 88.9 F L 187 H 100 09/17/20 22:05 88.9 F L 208 H 09/17/20 22:02 88.7 F L 0 L 103/36 L 09/17/20 22:00 87.8 F L 75 21 100 09/17/20 21:56 88 28 H 100 Laboratory Results Laboratory Results WBC 10.57 K/uL (4.8-10.8) 09/17/20 22:00 RBC 4.49 M/uL (4.7-6.1) L 09/17/20 22:00 Hgb 11.0 g/dL (14.0-18.0) L 09/18/20 00:57 POC Hgb 10.5 g/dl (14.0-18.0) L 09/18/20 02:21 Hct 32.3 % (42-52) L 09/18/20 00:57 POC Hct 31 % (42-52) L 09/18/20 02:21 MCV 75.9 fL (80-100) L 09/17/20 22:00 MCH 25.4 pg (25-34) 09/17/20 22:00 MCHC 33.4 g/dL (32-36) 09/17/20 22:00 RDW Std Deviation 44.8 fL (36.4-46.3) 09/17/20 22:00 RDW Coeff of Fermin 16.2 % (11.5-14.5) H 09/17/20 22:00 Plt Count 175 K/uL (130-400) 09/17/20 22:00 MPV 11.2 fL (7.4-10.4) H 09/17/20 22:00 Immature Gran % (Auto) 1.7 % 09/17/20 22:00 Neut % (Auto) 64.5 % 09/17/20 22:00 Lymph % (Auto) 24.1 % 09/17/20 22:00 Kimble % (Auto) 9.5 % 09/17/20 22:00 Eos % (Auto) 0.1 % 09/17/20 22:00 Baso % (Auto) 0.1 % 09/17/20 22:00 Neut # (Auto) 6.82 K/uL (1.4-6.5) H 09/17/20 22:00 Lymph # (Auto) 2.55 K/uL (1.2-3.4) 09/17/20 22:00 Kimble # (Auto) 1.00 K/uL (0.11-0.59) H 09/17/20 22:00 Eos # (Auto) 0.01 K/uL (0-0.5) 09/17/20 22:00 Baso # (Auto) 0.01 K/uL (0-0.2) 09/17/20 22:00 Immature Gran # (Auto) 0.18 K/uL (0.00-0.02) H 09/17/20 22:00 Sample Site Art Line 09/18/20 02:21 POC pH 6.96 (7.35-7.45) L* 09/18/20 02:21 POC pCO2 25 mmHg (35-46) L 09/18/20 02:21 POC pO2 152 mmHg (80-95) H 09/18/20 02:21 POC HCO3 6 katlin/L (19-24) L 09/18/20 02:21 POC Total CO2 6 mmol/L (24-31) L* 09/18/20 02:21 POC Base Excess -26.0 katlin/L (-9-1.8) L 09/18/20 02:21 ABG pH (Temp Correct) 7.028 (7.35-7.45) L* 09/18/20 02:21 ABG pCO2 (Temp Corrct 19 mmHg (35-46) L 09/18/20 02:21 POC ABG pO2 at Pt Temp 119 09/18/20 02:21 POC ABG O2 Sat 98.0 % (90-95) H 09/18/20 02:21 Dipak Test NA 09/18/20 02:21 O2 Delivery Device Ventilator 09/18/20 02: POC O2 Rate 30 09/18/20 02:21 Minute Ventilation 18 09/18/20 02:21 POC FiO2 35 % 09/18/20 02:21 Tidal Volume 600 09/18/20 02:21 PEEP 5 09/18/20 02:21 POC Sodium 137 mmol/L (135-144) 09/18/20 02:21 Sodium 145 mmol/L (136-145) 09/18/20 00:57 POC Potassium < 2.0 mmol/L (3.3-5.0) L* 09/18/20 02:21 Potassium 2.3 mmol/L (3.5-5.1) L* D 09/18/20 00:57 Chloride 103 mmol/L (98-107) 09/18/20 00:57 Carbon Dioxide 7 mmol/L (21-32) L* 09/18/20 00:57 Anion Gap 35.0 (3-11) H 09/18/20 00:57 BUN 43 mg/dl (7-18) H 09/18/20 00:57 Creatinine 3.56 mg/dl (0.6-1.4) H D 09/18/20 00:57 Est Cr Clr Drug Dosing Not Reportable 09/18/20 00:57 Est GFR ( Amer) 26.7 09/18/20 00:57 Est GFR (Non-Af Amer) 23.1 09/18/20 00:57 BUN/Creatinine Ratio 12.1 (10-20) 09/18/20 00:57 Glucose 954 mg/dl (70-99) H* 09/18/20 00:57 POC Glucose > 600 mg/dl (70-99) H* 09/17/20 22:38 POC Glucose (other) > 700 mg/dl (70-99) H* 09/18/20 03:08 Osmolality 387 mOsm/kg (280-300) H* 09/18/20 00:57 Lactate 15.3 mmol/L (0.4-2.0) H* 09/18/20 00:57 Calcium 9.0 mg/dl (8.5-10.1) 09/18/20 00:57 Ionized Calcium 1.29 mmol/L (1.12-1.32) 09/18/20 00:57 Phosphorus 8.8 mg/dl (2.5-4.9) H 09/18/20 00:57 Magnesium 6.9 mg/dl (1.8-2.4) H* 09/18/20 00:57 Total Bilirubin 0.6 mg/dl (0.2-1) 09/17/20 22:00 AST 723 U/L (15-37) H 09/17/20 22:00 ALT 631 U/L (12-78) H 09/17/20 22:00 Alkaline Phosphatase 71 U/L (45-117) 09/17/20 22:00 Total Creatine Kinase 1679 U/L (39-308) H 09/18/20 00:57 Troponin I 0.037 ng/ml (0-0.045) 09/18/20 00:57 Total Protein 5.7 gm/dl (6.4-8.2) L 09/17/20 22:00 Albumin 2.8 gm/dl (3.4-5.0) L 09/17/20 22:00 Globulin 2.9 gm/dl (2.5-4.0) 09/17/20 22:00 Albumin/Globulin Ratio 1.0 (0.9-2) 09/17/20 22:00 Lipase 21458 U/L (73-393) H 09/18/20 00:57 Beta-Hydroxybutyric Acd 111.16 mg/dl (0.2-2.81) H 09/18/20 00:57 TSH 1.760 uIu/ml (0.300-4.500) 09/17/20 22:00 Urine Color Yellow 09/17/20 22:22 Urine Appearance Clear (Clear) 09/17/20 22:22 Urine pH 5.0 (4.5-7.5) 09/17/20 22:22 Ur Specific Condon 1.025 (1.000-1.030) 09/17/20 22:22 Urine Protein 1+ (Negative) H 09/17/20 22:22 Urine Glucose (UA) 3+ (Negative) H 09/17/20 22:22 Urine Ketones 3+ (Negative) H 09/17/20 22:22 Urine Blood 3+ (Negative) H 09/17/20 22:22 Urine Nitrite Negative (Negative) 09/17/20 22:22 Urine Bilirubin Negative (Negative) 09/17/20 22:22 Urine Urobilinogen Negative (Negative) 09/17/20 22:22 Ur Leukocyte Esterase Negative (Negative) 09/17/20 22:22 Urine WBC (Auto) 1-5 /hpf (0-5) 09/17/20 22:22 Urine RBC (Auto) 0-4 /hpf (0-4) 09/17/20 22:22 U Hyaline Cast (Auto) 5-10 /lpf (0-5) H 09/17/20 22:22 U Epithel Cells (Auto) >30 /lpf (0-5) H 09/17/20 22:22 Urine Bacteria (Auto) Negative (Negative) 09/17/20 22:22 Granular Casts 5-10 /lpf (0) H 09/17/20 22:22 Urine Osmolality 423 mOsm/kg (500-800) L 09/18/20 01:30 Nasal Screen MRSA (PCR) Negative (Negative) 09/18/20 00:01 Salicylates 2.6 mg/dl (2.8-20) L 09/18/20 00:57 Urine Opiates Screen Neg (Neg) 09/17/20 22:22 Ur Methadone, Qual Neg (Neg) 09/17/20 22:22 Urine Barbiturates Neg (Neg) 09/17/20 22:22 Ur Phencyclidine (PCP) Neg (Neg) 09/17/20 22:22 U Amphetamin/Meth Scrn Neg (Neg) 09/17/20 22:22 MDMA (Ecstasy) Screen Neg (Neg) 09/17/20 22:22 U Benzodiazepines Scrn Neg (Neg) 09/17/20 22:22 Ur Cocaine Metabolite Neg (Neg) 09/17/20 22:22 U Marijuana (THC) Screen Neg (Neg) 09/17/20 22:22 COVID-19 Eval Order [facility] at [facility] 09/17/20 23:24 SARS-CoV-2 (PCR) NEGATIVE (Negative) 09/17/20 23:24 Influenza Type A (PCR) Negative (Neg) 09/17/20 23:24 Influenza Type B (PCR) Negative (Neg) 09/17/20 23:24 RSV (RT-PCR) Negative (Neg) 09/17/20 23:24 Code Status & VTE Plan Code Status Full code. Arrived to the ED intubated VTE Prophylaxis Plan VTE Prophylaxis will be ordered: Yes Critical Care Time Critical Care Time: Yes Total Critical Care Time: 40 PG Care Time/CCT Total # of Minutes Spent Total Time Spent with Patient: Total time spent is greater than 50% in coordination of care (as documented) at patient's floor/unit and/or counseling patient: Critical Care Time: Yes Total Critical Care Time: 40 Coding Level of Care Code 78991 Initial Inpt Care Lvl 3 Diagnoses Admitted to intensive care unit Z78.9 Cardiac arrest I46.9 Acute hypokalemia E87.6 JEROMY (acute kidney injury) N17.9 Hypermagnesemia E83.41 Abnormal LFTs R94.5 Anemia D64.9 Anemia type: unspecified type DKA (diabetic ketoacidoses) E13.11 Diabetes mellitus complication detail: with coma Diabetes mellitus type: other specified (including WENDY) Diabetes E11.9 Hypothermia T68.XXXA Encounter type: initial encounter Additional Codes Critical Care Time - Critical Care Time: Yes ([id number]) Time Spent (min) 40 (1) Anemia Anemia type: unspecified type Qualified Code(s): D64.9 - Anemia, unspecified (2) DKA (diabetic ketoacidoses) Diabetes mellitus complication detail: with coma Diabetes mellitus type: other specified (including WENDY) Qualified Code(s): E13.11 - Other specified diabetes mellitus with ketoacidosis with coma (3) Hypothermia Encounter type: initial encounter Qualified Code(s): T68.XXXA - Hypothermia, initial encounter
[2020-09-18] MEDS: SODIUM BICARBONATE 8.4% 150 MEQ, POTASSIUM CHLORIDE 40 MEQ in WATER, STERILE 1,000 ML IV SCH ×2 (04:27→09:48)
[2020-09-18] MEDS: VASOPRESSION #-# Do NOT Titrate #-# Option IV SCH ×2 (04:59→13:11)
[2020-09-18] MEDS: MAX Conc 128mcg/mL; 32mg in 250mL IV SCH ×3 (05:37→15:21)
[2020-09-18 05:51] LABS: Albumin Level 2.1 gm/dl (3.4-5.0); BUN Creatinine Ratio 12.9 (10-20); Bilirubin Direct 0.7 mg/dl (0-0.2); Bilirubin,Total 1.2 mg/dl (0.2-1); Calcium 7.9 mg/dl (8.5-10.1); Est GFR (Non-African American) 23.3; Magnesium 7.2 mg/dl (1.8-2.4); Phosphorus 6.4 mg/dl (2.5-4.9); Potassium 2.2 mmol/L (3.5-5.1); Total Protein 4.6 gm/dl (6.4-8.2); Troponin I 0.179 ng/ml (0-0.045)
--- NOTE | 2020-09-18 05:52 | Communication Note ---
Date of Service: September 18, 2020 0212: Did send out page to nephrology. I spoke with Dr. Chou who was kind enough to return my call. I did discuss entire case with her. At this point, she agrees with aggressive supplementation of potassium and ongoing bicarb drips. Unfortunately, with the patient's significant need for vasopressors, she is not encouraged the patient would tolerate standard hemodialysis. Additionally, we are unable to perform dialysis emergently at this institution until later in the day. She recommends continue with current treatment course at this time with hopes of improving underlying metabolic derangements. She did agree with contacting tertiary care for possible transfer for evaluation for OFFICE SUPPORT ASSOCIATE. At this point, patient is still requiring excessive amount of vasopressors, however his blood pressure has improved to the consistent 120s for several minutes. At this point, we will proceed with evaluation of CT for possible underlying causes. CT results reviewed and demonstrated possible underlying pancreatitis with no other acute findings in the head, chest, or abdomen/pelvis. 0339: I did reach out to [facility] and spoke with Dr. Nicole regarding possible transfer to their institution for possible evaluation of CRRT. At this point, he suggest to continue current treatment as the patient is not likely a candidate for OFFICE SUPPORT ASSOCIATE at this time and certainly transfer would be fragile. I have personally spent 45 minutes of critical care time in the direct management of this patient. This is a life/limb threatening event. This includes time spent evaluating patient, direct bedside care, chart review, placing orders, interpretation of diagnostic studies, discussion with consultants, patient, and family members, as well as other required patient management activities. This time is exclusive of all separately billable procedures, and teaching time and separate from and in addition to any other critical care service time. Coding Level of Care Code Critical Care 1st 30-74 mins
[2020-09-18] MEDS ORDERED: CALCIUM CHLORIDE 10% 1,000 MG in SODIUM CHLORIDE 0.9% 50 ML IV STA (05:55)
[2020-09-18] MEDS ORDERED: CALCIUM CHLORIDE 10% 10 ML SYR IV ONE (05:58)
[2020-09-18 05:59] LABS: Hematocrit (blood only) 31.2 % (42-52); Hemoglobin 10.3 g/dL (14.0-18.0); Mean Corpuscular Hemoglobin 25.1 pg (25-34); Mean Corpuscular Volume 75.9 fL (80-100); Platelet Count 112 K/uL (130-400); Red Blood Count 4.11 M/uL (4.7-6.1); White Blood Count 18.02 K/uL (4.8-10.8)
[2020-09-18 06:00] LABS: Platelet Estimate Decreased (Normal)
[2020-09-18 06:03] LABS: ALC (manual) 4.87 K/uL (1.2-3.4); ANC (manual) 12.61 K/uL (1.4-6.5); Lymphocytes # (manual) 4.87 K/uL (1.2-3.4); Monocytes # (manual) 0.36 K/uL (0.11-0.59); Myelocytes # (manual) 0.18 K/uL (0-0); Neutrophils # (manual) 12.61 K/uL (1.4-6.5)
[2020-09-18 06:18] LABS: Beta-Hydroxybutyrate 87.21 mg/dl (0.2-2.81)
--- NOTE | 2020-09-18 07:07 | CT Scan Report ---
CT OF THE HEAD WITHOUT CONTRAST CLINICAL HISTORY: Evaluate for bleed. Arrest. COMPARISON STUDY: No previous studies for comparison. TECHNIQUE: Helical axial images of the head were obtained without IV contrast. Automated exposure con trol was utilized for the study. A dose lowering technique was utilized adhering to the principles o f ALARA. FINDINGS: No acute intracranial hemorrhage, midline shift or mass effect is present. The ventricular system is unremarkable. The basal cisterns are patent. No extra-axial collections are present. There are no findings to suggest acute dural sinus thrombosis or acute territorial infarct. No significant calvarial abnormalities are present. Tiny sphenoid sinus air-fluid level is noted. This may be relate d to intubation. Nasogastric and endotracheal tubes are noted on the maintenance worker house trailer image. IMPRESSION: No acute intracranial findings. ACT 112: Negative or not required by law. Electronically signed by: Fracisco Vick M.D. 09/18/2020 7:05 AM
--- NOTE | 2020-09-18 07:25 | Procedure Note ---
Procedure Note Date of Service September 18, 2020 Procedure: Femoral Arterial Line Attending: Dr. Brothers APC: Vincent Koenig PA-C Indication: Central Drug Administration, Poor Venous Access, Multiple Lab Draws Necessary, etc. Anesthesia: None Emergent consent implied given need for failing radial arterial lines and need for close hemodynamic monitoring, frequent ABGs, Pressors. A time-out was completed verifying correct patient, procedure, site, positioning, and implants(s) or special equipment if applicable. Patients RIGHT Groin was cleansed and draped in the typical sterile fashion using Chloraprep. The Femoral Vein and Femoral Artery were identified using ultrasound. The Femoral Artery was cannulated under direct ultrasound guidance using an introducer needle on a syringe. Good artery blood return was maintained prior to removal of syringe from introducer needle. Using Seldinger Technique, a guide wire was advanced through the introducer needle without resistance. The introducer needle was removed and ultrasound images were obtained of the guide wire within the Femoral Artery and saved to the patients medical record. The arterial line catheter which was advanced into the vessel without resistance. The guide wire was removed intact from the catheter without issue. The catheter was placed at the hub and sutured in place. BioPatch was applied to the catheter and a sterile Tegaderm dressing was applied over the catheter with careful attention to sterility. Patient tolerated procedure well. No immediate complica tions were met. Images obtained are saved for permanent record Procedural Ultrasound Guidance: Procedure Date: 09/18/2020 Indication: Pressors, labs, ABGs Attending: Dr. Greene APC: Vincent Koenig PA-C Artery AND Vein visualized: YES Compressible Vein: YES Line confirmed in Artery with ultrasound: YES Images obtained are saved for permanent record. Coding CPT Codes Tubes, Drains, and Vasc Access - Tubes, Drains, and Vasc Access: [id number] Place Catheter In Artery ([id number]) [facility] [place] Codes (Charges) Tubes, Drains, and Vasc Access Procedure 1: Tubes, Drains, and Vasc Access: [id number] Place Catheter In Artery
[2020-09-18 07:35] LABS: iSTAT Art Bld Gas pCO2 Correct 22 mmHg (35-46); iSTAT Art Bld Gas pH Corrected 7.117 (7.35-7.45); iSTAT Arterial Blood Gas HCO3 7 meg/L (19-24); iSTAT Arterial Blood Gas pCO2 23 mmHg (35-46); iSTAT Arterial Blood Gas pO2 178 mmHg (80-95); iSTAT Arterial Blood Gas pO2 C 169; iSTAT Carbon Dioxide 8 mmol/L (24-31); iSTAT FiO2 40 %; iSTAT Hematocrit 25 % (42-52); iSTAT Hemoglobin 8.5 g/dl (14.0-18.0); iSTAT Potassium 2.4 mmol/L (3.3-5.0); iSTAT Site Art Line; iSTAT Sodium 140 mmol/L (135-144)
--- NOTE | 2020-09-18 07:42 | CT Scan Report ---
CT OF THE ABDOMEN AND PELVIS WITHOUT CONTRAST CLINICAL HISTORY: arrest COMPARISON STUDY: KUB September 17, 2020. TECHNIQUE: Axial images of the abdomen and pelvis were obtained without IV contrast. Images were revi ewed in the axial, sagittal, and coronal planes. Automated exposure control was utilized for the shay dy. A dose lowering technique was utilized adhering to the principles of ALARA. FINDINGS: Please note that the chest will be reported separately. Tip of nasogastric tube is within t he body of the stomach. There is probable hepatic steatosis. The solid abdominal viscera are suboptim ally assessed on this unenhanced examination. There is a small amount of fluid around the spleen. How ever, this is most likely secondary to acute pancreatitis. There is moderate peripancreatic infiltrat ion and fluid. There is no hydronephrosis. No peripancreatic fluid collection is identified on this u nenhanced exam. There is no evidence for a bowel obstruction. No lymphadenopathy is present. A Short balloon within the bladder is noted. Rectal catheter is in place. There is moderate left groin hemorr marlen which extends along the left iliac vessels. The vessels were suboptimally assessed on this unenh anced exam. IMPRESSION: 1. Moderate peripancreatic infiltration and fluid suggestive of acute pancreatitis. Fluid adjacent to the spleen is also likely secondary to acute pancreatitis. A traumatic etiology cannot be excluded o n this unenhanced exam but is considered less likely. 2. Moderate left groin hemorrhage. This could be correlated with traumatic history or recent attempte d line placement. 3. Probable hepatic steatosis. 4. Suboptimal evaluation of the abdomen and pelvis given the lack of IV contrast. ACT 112: Negative or not required by law. Electronically signed by: Fracisco Vick M.D. 09/18/2020 7:40 AM
[2020-09-18] MEDS ORDERED: Nursing to Pharmacy Communication SCH (08:15)
[2020-09-18 08:16] LABS: Partial Thromboplastin Ratio > 5.3
--- NOTE | 2020-09-18 08:22 | XRay Report ---
KUB HISTORY: Cardiac arrest. Generalized abdominal pain. Assess for free air. COMPARISON: None. FINDINGS: The bowel gas pattern is unremarkable. There are no dilated loops of small bowel to suggest an obstruction. No renal calculi. No ureteral calculi. No pneumoperitoneum or pneumatosis. A rectal catheter is noted. Moderate well-formed stool within the colon. IMPRESSION: 1. No evidence for bowel obstruction or pneumoperitoneum. 2. Moderate well-formed stool within the colon. ACT 112: Negative or not required by law. Electronically signed by: Ketan Johnson M.D. 09/18/2020 8:21 AM
--- NOTE | 2020-09-18 08:24 | XRay Report ---
XR chest 1V portable HISTORY: Cardiac arrest. intubated COMPARISON: None. FINDINGS: The endotracheal tube terminates approximately 5 cm from the ambreen. Left jugular central v enous catheter terminus at the distal SVC. No pneumothorax. No pleural effusions. The heart is normal in size. There is mild central pulmonary vascular congestion without overt edema. No focal lung cons olidations to suggest pneumonia. IMPRESSION: 1. The endotracheal tube terminates approximately 5 cm and the ambreen. 2. Mild central pulmonary basilar congestion without overt edema. ACT 112: Negative or not required by law. Electronically signed by: Ketan Johnson M.D. 09/18/2020 8:22 AM
--- NOTE | 2020-09-18 08:27 | XRay Report ---
XR chest 1V portable HISTORY: Cardiac arrest. COMPARISON: Chest 09/17/2020. FINDINGS: No pneumothorax. No pleural effusions. The heart is stable in size. Nasogastric tube termin ates below the diaphragm. The tip is not included on this study. Left jugular central venous catheter terminates in the SVC. The endotracheal tube terminates 4.8 cm from the ambreen. There is mild centra l pulmonary vascular congestion without overt edema. This has slightly improved. No new focal lung co nsolidations to suggest pneumonia. IMPRESSION: 1. Satisfactory support line placement. 2. Improvement in the mild central pulmonary vascular congestion. ACT 112: Negative or not required by law. Electronically signed by: Ketan Johnson M.D. 09/18/2020 8:25 AM
[2020-09-18 08:30] LABS: Hematocrit (blood only) 21.8 % (42-52); Hemoglobin 7.7 g/dL (14.0-18.0)
--- NOTE | 2020-09-18 08:50 | CT Scan Report ---
CT SCAN OF THE CHEST WITHOUT IV CONTRAST CLINICAL HISTORY: Status post cardiac arrest. COMPARISON STUDY: Chest x-ray dated 09/17/2020. TECHNIQUE: CT scan of the thorax was performed from the thoracic inlet to the upper abdomen. Images are reviewed in the axial, sagittal, and coronal planes. IV contrast was not administered for this ex amination as per the referring clinician. A dose lowering technique was utilized adhering to the ebonie nciples of RHETT. The examination is compromised by motion artifact, as well as by streak artifact fr om the arms which could not be elevated above the chest. FINDINGS: Thyroid: Imaged portions of the thyroid gland are normal in size and attenuation. Thoracic aorta: The thoracic aorta is normal in caliber and demonstrates standard 3-vessel arch anato my. Heart: The heart is normal in size and without pericardial effusion. Lungs and pleural spaces: Evaluation of the lung parenchyma is degraded by motion artifact. An endotr acheal tube terminates above the ambreen. The trachea and central airways are clear. There is no airsp yoanna consolidation typical for pneumonia, pneumothorax, or pleural effusion. Dependent atelectasis is noted at the lung bases. Mediastinum: There is no mediastinal hematoma or lymphadenopathy. Haily: Not well assessed without IV contrast. Axillae: There is no axillary lymphadenopathy. Upper abdomen: An enteric tube terminates in the stomach. The liver appears steatotic. There is perip ancreatic stranding and fluid, as well as perisplenic fluid. Skeletal structures: The bony thorax appears intact. No lytic or blastic bony lesions are seen. IMPRESSION: 1. Endotracheal and enteric tubes are in place. 2. There is no airspace consolidation, pleural effusion, or pneumothorax. 3. Peripancreatic stranding and fluid are noted in the upper abdomen, as is perisplenic fluid. See re port of abdominal CT performed concurrently for detailed intra-abdominal findings. ACT 112: Negative or not required by law. Electronically signed by: Joel Sol M.D. 09/18/2020 8:49 AM
[2020-09-18 08:53] LABS: BUN Creatinine Ratio 11.3 (10-20); Calcium 13.3 mg/dl (8.5-10.1); Creatinine Clr Calc Pharmacy 42.8 ml/min; Est GFR (African American) 27.6; Est GFR (Non-African American) 23.8; Magnesium 5.7 mg/dl (1.8-2.4); Potassium 2.3 mmol/L (3.5-5.1)
[2020-09-18 08:57] LABS: INR 5.2 (0.9-1.1); Prothrombin Time 46.3 Seconds (9.0-12.0)
[2020-09-18 08:58] LABS: Partial Thromboplastin Time > 139.0 Seconds (21.0-31.0)
--- NOTE | 2020-09-18 09:09 | Electrocardiogram Report ---
Test Reason : Blood Pressure : / mmHG Vent. Rate : 085 BPM Atrial Rate : 066 BPM P-R Int : 000 ms QRS Dur : 172 ms QT Int : 480 ms P-R-T Axes : 000 076 -13 degrees QTc Int : 571 ms Atrial fibrillation with premature ventricular or aberrantly conducted complexes Non-specific intra-ventricular conduction block (consistent with Siegel waves) Abnormal ECG No previous ECGs available Confirmed by Teja West ([id number]) on 09/18/2020 9:09:31 AM Referred By: Beverly CHUNG Confirmed By:Teja West
--- NOTE | 2020-09-18 09:12 | Electrocardiogram Report ---
Test Reason : Blood Pressure : / mmHG Vent. Rate : 090 BPM Atrial Rate : 090 BPM P-R Int : 172 ms QRS Dur : 122 ms QT Int : 376 ms P-R-T Axes : 080 081 011 degrees QTc Int : 459 ms Normal sinus rhythm Non-specific intra-ventricular conduction delay Nonspecific ST abnormality Abnormal ECG When compared with ECG of 17-SEP-2020 22:15, Sinus rhythm has replaced Atrial fibrillation QRS duration has decreased QT has shortened Siegel waves no longer present Confirmed by Teja West ([id number]) on 09/18/2020 9:12:39 AM Referred By: Beverly SCI Confirmed By:Teja West
--- NOTE | 2020-09-18 09:19 | Electrocardiogram Report ---
Test Reason : Blood Pressure : / mmHG Vent. Rate : 099 BPM Atrial Rate : 099 BPM P-R Int : 128 ms QRS Dur : 110 ms QT Int : 340 ms P-R-T Axes : 049 084 045 degrees QTc Int : 436 ms Normal sinus rhythm Diffuse Minor Nonspecific ST and T wave abnormality Abnormal ECG When compared with ECG of 18-SEP-2020 05:17, No significant change was found Confirmed by Teja West ([id number]) on 09/18/2020 9:19:19 AM Referred By: Beverly CHUNG Confirmed By:Teja West
[2020-09-18] MEDS: INSULIN ASPART 100 UNITS/ML 3 ML PEN SC SCH ×3 (09:26→17:38)
[2020-09-18 09:32] LABS: Phosphorus 4.9 mg/dl (2.5-4.9)
[2020-09-18 09:41] LABS: iSTAT Blood Urea Nitrogen 44 mg/dl (7-18); iSTAT Carbon Dioxide 11 mmol/L (24-31); iSTAT Chloride 112 mmol/L (101-112); iSTAT Creatinine 2.5 mg/dl (0.6-1.3); iSTAT Glucose > 700 mg/dl (70-99); iSTAT Hematocrit 33 % (42-52); iSTAT Hemoglobin 11.2 g/dl (14.0-18.0); iSTAT Potassium < 2.0 mmol/L (3.3-5.0); iSTAT Sodium 140 mmol/L (135-144)
[2020-09-18] MEDS ORDERED: SODIUM CHLORIDE 0.9% 250 ML IV PRN ×4 (09:45→10:22)
[2020-09-18] MEDS: ALBUMIN 25% 12.5 GM/50 ML VIAL IV SCH ×4 (09:52→13:10)
--- NOTE | 2020-09-18 09:57 | XCELERA ---
[id number]
[2020-09-18] MEDS: LACTATED RINGER'S 1,000 ML IV SCH ×2 (10:00→10:03)
[2020-09-18] MEDS ORDERED: LACTATED RINGER'S 1,000 ML IV ONE ×2 (10:06→10:43)
[2020-09-18] MEDS: POTASSIUM CHLORIDE 20 MEQ/15 ML UDC NG SCH ×2 (10:17→13:13)
[2020-09-18] MEDS: LACTATED RINGER'S 2,000 ML IV SCH ×2 (10:17→11:37)
[2020-09-18] MEDS ORDERED: INSULIN PROTOCOL GOAL RANGE ONE (10:19)
[2020-09-18] MEDS ORDERED: INSULIN REGULAR 250 UNITS in SODIUM CHLORIDE 0.9% 247.5 ML IV SCH (10:30)
--- NOTE | 2020-09-18 10:39 | Nephrology Consultation ---
Date of Consultation September 18, 2020 Assessment & Plan (1) JEROMY (acute kidney injury): 20-year-old young male admitted after cardiac arrest in the setting of DKA, currently intubated and unresponsive. Developed oligo aneuric JEROMY with multiple electrolyte abnormality including hypokalemia and lactic acidosis. No known baseline chronic kidney disease, creatinine has been above 3 with electrolyte abnormality. Remained hypotensive on 3 pressor support. Urine output has been low however, m aintaining oxygen saturation with FiO2 30% --continue electrolyte replacement and pressor support per ICU protocol --no indication for renal replacement therapy at this time, unlikely to tolerate with persistent hypotension on 3 pressor --monitor urine output, if develops volume overload or difficulty maintaining O2 saturation, may need to discuss options for renal replacement therapy. Overall prognosis remains guarded Will follow Thank you for allowing me to participate in your patient's care. (2) Acute hypokalemia: (3) Metabolic acidosis: (4) DKA (diabetic ketoacidoses): (5) Anemia: (6) Cardiac arrest: History of Present Illness Reason for Consultation: Acute kidney injury, severe electrolyte abnormality. Attending Physician: Renee Noel MD History of Present Illness Mr. Kelly is a 20-year-old young male admitted to the hospital after cardiac arrest outside hospital. Nephrology consult was requested for management of JEROMY and electrolyte abnormality. Electronic medical records are reviewed in detail during patient's visit. Mr. Zelaya is currently intubated and unresponsive, most of the information was gathered from EMR record review and discussion with intensive care unit. According to the information, 1 day prior to the admission, patient was not feeling well with flu-like symptom and he went to the [facility] where he was found to have a blood sugar over 600. COVID- 19 test which was reported as negative. Yesterday he complained of some abdominal pain and when he was later reassessed 40 minutes later he was found unresponsive with agonal breathing. Blood sugar was over 600 and he was given 20 units of insulin subcutaneously. He then proceeded to go into cardiac arrest and paramedics found him in asystole on arrival. CPR was started and they did obtain ROSC, intubated and transported to [place] ER. He was diagnosed with DKA with multiple critical electrolyte abnormality including hypokalemia, gap metabolic acidosis with high lactic acid. Currently he is on 3 pressor with systolic blood pressure in 70s. Remained unresponsive without any sedation, intubated, FiO2 30%. No detail available about baseline health. Urine output has been low, found to have JEROMY, creatinine above 3. Potassium persistently low around 2.5-2.6. Calcium 7. Received multiple doses of IV calcium gluconate, KCL, on bicarbonate drip and pressor. Allergies Allergy/AdvReac Type Severity Reaction Status Date / Time No Known Allergies Allergy Unverified 09/17/20 23:22 Home Medications Medication Instructions Recorded Confirmed Type No Known Home Medications 09/17/20 09/17/20 History mirtazapine 15 mg PO HS 09/17/20 09/17/20 History Patient History Medical History Diabetes Social History Smoking Status: Unknown if ever smoked Preferred Language: Macedonian Beliefs That Will Affect Care: None Current Living Situation: Other current occupational status: other Feels Safe at Home: Yes Review of Systems Review of Systems: Unobtainable due to endotracheal tube Physical Exam Constitutional: + mechanically ventilated unresponsive Neck: normal visual inspection Respiratory: Auscultation: + rales Cardiovascular: RRR, no murmur, no edema Gastrointestinal (Abdomen): Inspection/Auscultation: normal bowel sounds Neurologic: intubated, unresponsive Psychiatric: could not be assessed. Results & Data ([facility]) Vital Signs (Past 12 Hours) Vital Signs Temp Pulse Pulse Resp BP BP Pulse Ox 09/18/20 09:24 34.2 C L 92 H 107/61 99 09/18/20 09:15 34.3 C L 92 H 99 09/18/20 09:12 34.4 C L 92 H 99 09/18/20 09:00 34.5 C L 94 H 87 L 09/18/20 08:55 34.5 C L 100 H 93 09/18/20 08:45 34.5 C L 98 H 96 09/18/20 08:30 34.6 C L 98 H 87 L 09/18/20 08:24 34.7 C L 98 H 116/53 L 89 L 09/18/20 08:15 34.8 C L 98 H 92 09/18/20 08:00 35.2 C L 100 H 129/41 L 92 09/18/20 07:53 35.3 C L 102 H 143/53 H 99 09/18/20 07:51 35.4 C L 104 H 129/51 L 99 09/18/20 07:49 35.4 C L 104 H 130/50 L 100 09/18/20 07:47 35.4 C L 108 H 124/47 L 100 09/18/20 07:46 35.4 C L 110 H 99 09/18/20 07:45 35.4 C L 110 H 134/47 L 98 09/18/20 07:43 35.5 C L 112 H 121/48 L 100 09/18/20 07:41 35.5 C L 113 H 122/51 L 100 09/18/20 07:39 35.5 C L 113 H 133/56 L 100 09/18/20 07:37 35.5 C L 107 H 129/56 L 100 09/18/20 07:35 35.5 C L 108 H 95/55 L 100 09/18/20 07:33 35.4 C L 102 H 73/46 L 100 09/18/20 07:31 35.4 C L 105 H 73/51 L 96 09/18/20 07:30 35.4 C L 105 H 100 09/18/20 07:29 35.4 C L 104 H 69/49 L 100 09/18/20 07:27 35.4 C L 105 H 64/46 L 100 09/18/20 07:25 35.4 C L 105 H 88/38 L 100 09/18/20 07:23 35.4 C L 105 H 70/59 L 100 09/18/20 07:21 35.4 C L 103 H 99/57 L 100 09/18/20 07:18 35.4 C L 102 H 83/29 L 100 09/18/20 07:16 35.3 C L 102 H 100 09/18/20 07:15 35.3 C L 100 H 100 09/18/20 07:13 35.3 C L 100 H 71/55 L 100 09/18/20 07:11 35.3 C L 99 H 37 H 100 09/18/20 07:09 35.3 C L 100 H 79/45 L 100 09/18/20 07:07 35.3 C L 99 H 76 L 09/18/20 07:05 35.2 C L 99 H 84/52 L 81 L 09/18/20 07:03 35.2 C L 98 H 74/38 L 80 L 09/18/20 07:01 35.2 C L 99 H 113/45 L 83 L 09/18/20 07:00 35.2 C L 99 H 85 L 09/18/20 06:30 34.9 C L 102 H 09/18/20 06:28 34.9 C L 100 H 110/47 L 100 09/18/20 06:26 34.9 C L 100 H 91/49 L 98 09/18/20 06:24 34.8 C L 101 H 119/39 L 100 09/18/20 06:22 34.8 C L 101 H 99/46 L 100 09/18/20 06:21 34.8 C L 102 H 100 09/18/20 06:20 34.8 C L 102 H 104/55 L 100 09/18/20 06:18 34.7 C L 103 H 101/52 L 100 09/18/20 06:17 34.7 C L 104 H 100 09/18/20 06:16 34.7 C L 104 H 107/47 L 100 09/18/20 06:14 34.7 C L 104 H 102/46 L 100 09/18/20 06:12 34.7 C L 105 H 116/45 L 100 09/18/20 06:11 34.6 C L 106 H 106/42 L 100 09/18/20 06:08 34.6 C L 105 H 145/39 H 99 09/18/20 06:06 34.6 C L 102 H 110/40 L 98 09/18/20 06:05 34.6 C L 104 H 100/47 L 98 09/18/20 06:03 34.5 C L 102 H 97/53 L 98 09/18/20 05:57 34.5 C L 91 H 78/35 L 87 L 09/18/20 05:56 34.4 C L 91 H 87 L 09/18/20 05:55 34.4 C L 91 H 74/40 L 87 L 09/18/20 05:51 34.4 C L 92 H 88 L 09/18/20 05:50 34.4 C L 92 H 80/38 L 89 L 09/18/20 05:48 34.3 C L 92 H 108/37 L 90 09/18/20 05:46 34.3 C L 91 H 93 09/18/20 05:45 34.3 C L 93 H 91/43 L 93 09/18/20 05:41 34.2 C L 93 H 98 09/18/20 05:40 34.2 C L 93 H 103/45 L 98 09/18/20 05:36 34.1 C L 93 H 98 09/18/20 05:35 34.1 C L 92 H 93/42 L 98 09/18/20 05:33 34.1 C L 93 H 94/43 L 98 09/18/20 05:31 34.1 C L 93 H 98 09/18/20 05:30 34.0 C L 93 H 103/45 L 98 09/18/20 05:28 34.0 C L 93 H 106/43 L 98 09/18/20 05:27 34.0 C L 93 H 98 09/18/20 05:26 34.0 C L 92 H 106/41 L 98 09/18/20 05:25 34.0 C L 92 H 110/51 L 97 09/18/20 05:20 33.9 C L 91 H 97 09/18/20 05:16 33.8 C L 90 97 09/18/20 05:15 33.8 C L 91 H 104/41 L 97 09/18/20 05:11 33.7 C L 90 98 09/18/20 05:10 33.7 C L 90 105/48 L 99 09/18/20 05:06 33.7 C L 90 99 09/18/20 05:05 33.6 C L 90 118/46 L 99 09/18/20 05:01 33.6 C L 89 100 09/18/20 05:00 33.5 C L 90 104/44 L 99 09/18/20 04:55 33.4 C L 89 109/47 L 99 09/18/20 04:50 33.4 C L 89 126/42 L 99 09/18/20 04:46 33.3 C L 88 98 09/18/20 04:45 33.3 C L 88 127/45 L 99 09/18/20 04:40 33.2 C L 88 111/47 L 100 09/18/20 04:35 33.1 C L 87 121/46 L 99 09/18/20 04:31 33.1 C L 88 99 09/18/20 04:30 33.1 C L 87 115/49 L 99 09/18/20 04:25 33.0 C L 86 121/40 L 99 09/18/20 04:24 33.0 C L 87 109/47 L 99 09/18/20 04:20 32.9 C L 86 125/43 L 98 09/18/20 04:16 32.8 C L 85 98 09/18/20 04:15 32.8 C L 85 110/51 L 98 09/18/20 04:10 32.7 C L 84 115/50 L 98 09/18/20 04:04 32.6 C L 89 118/50 L 98 09/18/20 04:01 32.6 C L 83 98 09/18/20 03:59 32.6 C L 84 109/54 L 98 09/18/20 03:54 32.5 C L 83 119/51 L 98 09/18/20 03:49 32.4 C L 82 110/57 L 98 09/18/20 03:46 32.4 C L 82 97 09/18/20 03:45 32.3 C L 82 107/49 L 98 09/18/20 03:41 32.3 C L 81 98 09/18/20 03:40 32.3 C L 81 129/48 L 98 09/18/20 03:36 32.2 C L 81 98 09/18/20 03:34 32.2 C L 81 120/52 L 98 09/18/20 03:31 32.1 C L 82 98 09/18/20 03:30 32.1 C L 81 119/53 L 98 09/18/20 03:26 32.0 C L 80 98 09/18/20 03:24 32.0 C L 80 142/48 H 98 09/18/20 03:21 32.0 C L 80 98 09/18/20 03:19 31.9 C L 80 119/61 98 09/18/20 03:16 31.9 C L 80 98 09/18/20 03:14 31.9 C L 79 136/56 L 98 09/18/20 03:11 31.8 C L 79 99 09/18/20 03:09 31.8 C L 79 142/56 H 99 09/18/20 03:06 31.7 C L 79 99 09/18/20 03:04 31.7 C L 78 122/63 100 09/18/20 03:01 31.7 C L 79 99 09/18/20 02:59 31.6 C L 78 136/57 L 99 09/18/20 02:56 31.6 C L 79 99 09/18/20 02:54 31.6 C L 78 128/56 L 99 09/18/20 02:51 79 30 H 99 09/18/20 02:50 77 09/18/20 02:25 77 09/18/20 02:21 30.9 C L 76 141/65 H 100 09/18/20 02:20 30.9 C L 76 100 09/18/20 02:16 30.9 C L 75 126/69 100 09/18/20 02:15 30.8 C L 75 100 09/18/20 02:11 30.8 C L 75 137/60 100 09/18/20 02:10 30.8 C L 76 100 09/18/20 02:06 30.7 C L 75 136/73 100 09/18/20 02:05 30.7 C L 75 100 09/18/20 02:02 30.3 C L 79 30 H 78/45 L 100 09/18/20 02:01 30.7 C L 74 135/60 100 09/18/20 02:00 30.6 C L 74 100 09/18/20 01:56 30.6 C L 74 118/66 100 09/18/20 01:55 30.6 C L 73 100 09/18/20 01:51 30.5 C L 73 110/69 100 09/18/20 01:50 30.5 C L 73 100 09/18/20 01:46 30.5 C L 73 132/70 100 09/18/20 01:45 30.5 C L 72 100 09/18/20 01:41 30.5 C L 73 115/75 100 09/18/20 01:40 30.4 C L 72 100 09/18/20 01:37 30.4 C L 72 100 09/18/20 01:36 30.4 C L 72 126/69 100 09/18/20 01:31 30.4 C L 72 134/64 100 09/18/20 01:30 30.4 C L 72 100 09/18/20 01:26 30.3 C L 72 139/71 100 09/18/20 01:21 30.3 C L 71 124/72 100 09/18/20 01:16 30.3 C L 71 127/64 100 09/18/20 01:15 30.3 C L 72 100 09/18/20 01:11 30.3 C L 72 123/58 L 100 09/18/20 01:06 30.3 C L 72 128/58 L 100 09/18/20 01:01 30.2 C L 71 131/64 100 09/18/20 01:00 30.2 C L 71 100 09/18/20 00:56 30.2 C L 72 126/55 L 100 09/18/20 00:51 30.2 C L 72 129/65 100 09/18/20 00:46 30.2 C L 72 135/57 L 100 09/18/20 00:45 30.3 C L 72 100 09/18/20 00:41 30.3 C L 73 120/61 100 09/18/20 00:36 30.3 C L 73 117/57 L 100 09/18/20 00:31 30.3 C L 74 118/58 L 100 09/18/20 00:30 30.3 C L 74 100 09/18/20 00:26 30.3 C L 75 128/51 L 100 09/18/20 00:23 74 09/18/20 00:21 30.3 C L 75 112/47 L 100 09/18/20 00:16 30.3 C L 76 32 H 103/50 L 100 09/18/20 00:15 30.3 C L 75 100 09/18/20 00:06 30.4 C L 79 100 09/17/20 23:50 30 H 09/17/20 23:40 30.3 C L 79 100 09/17/20 23:25 30.9 C L 67 100 09/17/20 23:20 30.9 C L 67 108/50 L 100 09/17/20 23:15 30.9 C L 68 100 09/17/20 23:10 31.0 C L 68 100 09/17/20 23:06 31.0 C L 67 104/40 L 100 09/17/20 23:04 31.0 C L 68 100/40 L 100 09/17/20 23:01 31.1 C L 69 100 09/17/20 23:00 31.1 C L 69 100 09/17/20 22:56 31.1 C L 68 88/47 L 100 09/17/20 22:50 31.1 C L 70 79/41 L 100 09/17/20 22:45 31.2 C L 74 78/45 L 100 09/17/20 22:41 31.2 C L 74 54/40 L 100 09/17/20 22:35 31.3 C L 73 75/45 L 100 09/17/20 22:30 31.4 C L 67 58/29 L 100 09/17/20 22:27 31.4 C L 65 56/30 L 98 PG Care Time/CCT Total # of Minutes Spent Total Time Spent with Patient: Total time spent is greater than 50% in coordination of care (as documented) at patient's floor/unit and/or counseling patient: Coding Level of Care Code 29132 Inpt Consult Level 5 Diagnoses JEROMY (acute kidney injury) N17.9 Acute hypokalemia E87.6 Metabolic acidosis E87.2 DKA (diabetic ketoacidoses) E13.11 Diabetes mellitus complication detail: with coma Diabetes mellitus type: other specified (including WENDY) Anemia D64.9 Anemia type: unspecified type Cardiac arrest I46.9 (1) DKA (diabetic ketoacidoses) Diabetes mellitus complication detail: with coma Diabetes mellitus type: other specified (including WENDY) Qualified Code(s): E13.11 - Other specified diabetes mellitus with ketoacidosis with coma (2) Anemia Anemia type: unspecified type Qualified Code(s): D64.9 - Anemia, unspecified
[2020-09-18] MEDS: SODIUM BICARBONATE 8.4% 150 MEQ, POTASSIUM CHLORIDE 40 MEQ in DEXTROSE 5% 1,000 ML IV SCH ×2 (11:00→15:28)
--- NOTE | 2020-09-18 11:03 | XRay Report ---
KUB CLINICAL HISTORY: Abdominal distention. COMPARISON STUDY: CT of the abdomen and pelvis September 18, 2020 at 2:43 AM. FINDINGS: There has been interval development of mild small and large bowel dilatation since CT perfo rmed earlier today. This exam was technically difficult to obtain and the hemidiaphragms and left asp ect of the abdomen could not be included on this exam. Rectal probe is in place. No calcifications ar e identified. Visualized skeletal structures are unremarkable. IMPRESSION: Interval development of mild small and large bowel dilatation since CT performed earlier today. This is nonspecific but may reflect an ileus. Radiographic follow-up is recommended. ACT 112: Negative or not required by law. Electronically signed by: Fracisco Vick M.D. 09/18/2020 11:02 AM
[2020-09-18] MEDS ORDERED: INSULIN ASPART 100 UNITS/ML 3 ML PEN SC SCH (11:30)
[2020-09-18 11:34] LABS: iSTAT Arterial Blood Gas HCO3 6 meg/L (19-24); iSTAT Arterial Blood Gas pCO2 21 mmHg (35-46); iSTAT Arterial Blood Gas pH 7.04 (7.35-7.45); iSTAT Arterial Blood Gas pO2 162 mmHg (80-95); iSTAT Carbon Dioxide 6 mmol/L (24-31)
--- NOTE | 2020-09-18 11:36 | XRay Report ---
KUB HISTORY: Abdominal distention. COMPARISON: KUB 09/18/2020. FINDINGS: Nasogastric tube terminates in the stomach. Dilated gas-filled loops of large and small bow el are again noted. The small bowel measures up to 4.1 cm in diameter. The ascending colon measures u p to 7.4 cm in diameter. Moderate to large amount well-formed stool within the proximal colon. The di stal colon is normal in caliber and contains gas and stool. No renal calculi. No ureteral calculi. N o pneumoperitoneum or pneumatosis. IMPRESSION: 1. No significant change in the dilated gas-filled loops of large and small bowel to the level of the distal colon. Findings favor an ileus. A distal large bowel obstruction cannot be excluded. 2. Nasogastric tube terminates in the proximal stomach. ACT 112: Negative or not required by law. Electronically signed by: Ketan Johnson M.D. 09/18/2020 11:34 AM
[2020-09-18 11:37] LABS: Partial Thromboplastin Ratio > 5.3
[2020-09-18 11:38] LABS: Fibrinogen < 50 mg/dl (184-400); Partial Thromboplastin Time > 139.0 Seconds (21.0-31.0)
[2020-09-18] MEDS ORDERED: POTASSIUM CHLORIDE PWD 20 MEQ PACK PO SCH (12:00)
--- NOTE | 2020-09-18 12:03 | Critical Care Progress Note ---
Date of Service September 18, 2020 Assessment & Plan (1) Admitted to intensive care unit: Impression: 20-year-old -N[place]e male with obesity and likely pre- existing diabetes presenting with severe DKA manifesting as out of hospital cardiac arrest. The patient remains extraordinarily unstable with multiorgan system dysfunction/failure. 24-hour events: Patient was admitted to the intensive care unit. Right femoral arterial line was placed and a FemoStop device was placed in the left groin for the groin hematoma. He is intermittently remained hypotensive. When I arrived this morning we continued his resuscitation. I pushed 2 A of bicarb immediately and increased his bicarb drip due to his blood gas abnormalities. Calcium was also administered. We administered additional IV fluids as a suspect he was likely volume depleted due to his severe DKA on presentation. He did respond favorably to fluids however whenever the fluids are stopped, he becomes hypotensive again. Urine output has been minimal. We have been unsuccessful in contacting family members to date. Recommendations: 1. Neurologic: The patient is at high risk for anoxic encephalopathy. He has had 2 episodes of cardiac arrest requiring CPR. His initial imaging was unremarkable. He is too unstable to continue any additional imaging. He is not receiving any sedation currently and has only trivial brainstem reflexes left (corneal) not sure this is a survivable neurological insult at this point time. He is too unstable to consider any efforts at targeted temperature management. There is no evidence of seizure activity and I do not think EEG would add much to his care at this point time. 2. Cardiovascular: Profound shock. Likely hypovolemic as well as metabolic. May have sequestration due to pancreatitis, see below. Continue with aggressive fluid resuscitation. We will monitor CVP settings. He has received albumin as well. His echo shows a hyperdynamic EF with an underfilled right ventricle suggesting responsiveness to additional IV fluids. We will check random cortisol as well given the severity of his illness. He continues to require 3 vasopressor agents and I am not sure this is a survivable injury/illness 3. Pulmonary: The patient has been intubated and is on the ventilator. Will adjust settings to compensate for his metabolic acidosis. His x-ray is clear. He is oxygenating reasonably well but is obviously at high risk of third spacing and progressive pulmonary edema/ARDS. 4. GI: Pancreatitis identified on echo with markedly elevated lipase. Continue resuscitation as he is at high risk of fluid sequestration. Continue to replete calcium as he is at risk for secondary saponification. Given the severity of his illness it seems reasonable to cover him for intra-abdominal process with carbopenem. There does not appear to be a discrete abscess or phlegmon amenable to aspiration at this point time. Unclear if the pancreatitis inside of DKA or was secondary due to DKA but would not exchange clerk at this point time. Imaging studies have shown findings concerning for potential ileus versus small bowel obstruction. Ileus would not be surprising given his pancreatitis. Hold tube feeding for now and follow abdominal exam. He is not a candidate for any surgical intervention currently. 5. Renal: The patient appears to be developing anuria. He is certainly at risk for abdominal compartment syndrome. Nephrology is been consulted. He has profound acid-base abnormalities and electrolyte abnormalities which are being repleted aggressively. 6. Endocrine: DKA: No prior history of diabetes. The patient presented with DKA at this point in time. His hemoglobin A1c was markedly elevated over 12. Continue insulin. We will add glucose back to maintain glycemia while insulin is on board. Continue this therapy until gap is closed and ketones of cleared. Random cortisol was 58 this morning 8. ID: Cannot rule out intra-abdominal infectious process. Bacterial translocation risk is moderate to high given distended abdomen and multiple vasopressor agents. We will continue based on clinical response and clinical data. Patient is critically ill at this point time. We will continue efforts to try and contact family members. Given his profound metabolic abnormalities and high likelihood of anoxic encephalopathy, I am not sure that additional CPR at this point time would offer him any benefit. The patient was discussed with [facility] referral centers overnight to see if additional interventions may be possible however they did not have anything to recommend and did not believe that there would be a significant benefit to transferring the patient and there may be significant harm given his clinical lability. I would favor changing his status to DO NOT RESUSCITATE and continue all supportive measures to see if this is survivable or not although again my suspicion is that his outcome will be poor. Patient has multiple life-threatening illnesses. My presence was required at bedside for an extended period of time to assist in resuscitation of this patient. He is critically ill with high probability of . Total CC time 135 min. discussed repeately with CCN and on MDR. (2) Metabolic acidosis: (3) DKA (diabetic ketoacidoses): (4) Anemia: (5) Acute hypokalemia: (6) Cardiac arrest: Admission and Anticipated Discharge Date Admission Date: September 17, 2020 Subjective . Patient is intubated and sedated. Review of Systems Review of Systems: Unobtainable due to endotracheal tube and Unobtainable due to reduced consciousness Physical Exam Constitutional: + ill appearing, + obese and + mechanically ventilated Neck: trachea midline, no thyromegaly Respiratory: normal respiratory effort, lungs clear to auscultation Cardiovascular: Rate/Rhythm: + tachycardic Heart Sounds: normal S1 and normal S2; no murmur Gastrointestinal (Abdomen): Inspection/Auscultation: + abdomen distended; + abnormal bowel sounds Musculoskeletal: Extremities: extremities normal to inspection Skin: no rashes, warm and dry Neurologic: Nonfocal exam Lymphatic: no cervical lymphadenopathy Results & Data Results & Data ([facility]) Vital Signs (Past 12 Hours) Vital Signs Temp Pulse Pulse Resp BP BP Pulse Ox 09/18/20 11:45 32.3 C L 83 09/18/20 11:40 32.3 C L 83 32 H 102/50 L 99 09/18/20 11:33 32.4 C L 84 32 H 103/50 L 99 09/18/20 11:30 32.4 C L 86 09/18/20 11:26 32.5 C L 86 32 H 103/50 L 100 09/18/20 11:18 32.6 C L 91 H 31 H 108/42 L 99 09/18/20 11:15 32.6 C L 91 H 09/18/20 11:12 32.7 C L 75 31 H 102/43 L 100 09/18/20 11:08 79 31 H 99 09/18/20 11:06 32.1 C L 79 32 H 122/54 L 99 09/18/20 11:00 32.9 C L 77 09/18/20 10:54 32.9 C L 81 09/18/20 10:45 33.0 C L 83 09/18/20 10:30 33.3 C L 83 09/18/20 10:25 33.3 C L 82 09/18/20 10:15 33.5 C L 87 99 09/18/20 10:00 33.7 C L 87 09/18/20 09:54 33.8 C L 87 104/57 L 99 09/18/20 09:45 33.8 C L 94 H 99 09/18/20 09:30 34.1 C L 93 H 99 09/18/20 09:25 34.2 C L 93 H 99 09/18/20 09:24 34.2 C L 92 H 107/61 99 09/18/20 09:15 34.3 C L 92 H 99 09/18/20 09:12 34.4 C L 92 H 99 09/18/20 09:00 34.5 C L 94 H 87 L 09/18/20 08:55 34.5 C L 100 H 93 09/18/20 08:45 34.5 C L 98 H 96 09/18/20 08:30 34.6 C L 98 H 87 L 09/18/20 08:24 34.7 C L 98 H 116/53 L 89 L 09/18/20 08:15 34.8 C L 98 H 92 09/18/20 08:00 35.2 C L 100 H 129/41 L 92 09/18/20 07:53 35.3 C L 102 H 143/53 H 99 09/18/20 07:51 35.4 C L 104 H 129/51 L 99 09/18/20 07:49 35.4 C L 104 H 130/50 L 100 09/18/20 07:47 35.4 C L 108 H 124/47 L 100 09/18/20 07:46 35.4 C L 110 H 99 09/18/20 07:45 35.4 C L 110 H 134/47 L 98 09/18/20 07:43 35.5 C L 112 H 121/48 L 100 09/18/20 07:41 35.5 C L 113 H 122/51 L 100 09/18/20 07:39 35.5 C L 113 H 133/56 L 100 09/18/20 07:37 35.5 C L 107 H 129/56 L 100 09/18/20 07:35 35.5 C L 108 H 95/55 L 100 09/18/20 07:33 35.4 C L 102 H 73/46 L 100 09/18/20 07:31 35.4 C L 105 H 73/51 L 96 09/18/20 07:30 35.4 C L 105 H 100 09/18/20 07:29 35.4 C L 104 H 69/49 L 100 09/18/20 07:27 35.4 C L 105 H 64/46 L 100 09/18/20 07:25 35.4 C L 105 H 88/38 L 100 09/18/20 07:23 35.4 C L 105 H 70/59 L 100 09/18/20 07:21 35.4 C L 103 H 99/57 L 100 09/18/20 07:18 35.4 C L 102 H 83/29 L 100 09/18/20 07:16 35.3 C L 102 H 100 09/18/20 07:15 35.3 C L 100 H 100 09/18/20 07:13 35.3 C L 100 H 71/55 L 100 09/18/20 07:11 35.3 C L 99 H 37 H 100 09/18/20 07:09 35.3 C L 100 H 79/45 L 100 09/18/20 07:07 35.3 C L 99 H 76 L 09/18/20 07:05 35.2 C L 99 H 84/52 L 81 L 09/18/20 07:03 35.2 C L 98 H 74/38 L 80 L 09/18/20 07:01 35.2 C L 99 H 113/45 L 83 L 09/18/20 07:00 35.2 C L 99 H 85 L 09/18/20 06:30 34.9 C L 102 H 09/18/20 06:28 34.9 C L 100 H 110/47 L 100 09/18/20 06:26 34.9 C L 100 H 91/49 L 98 09/18/20 06:24 34.8 C L 101 H 119/39 L 100 09/18/20 06:22 34.8 C L 101 H 99/46 L 100 09/18/20 06:21 34.8 C L 102 H 100 09/18/20 06:20 34.8 C L 102 H 104/55 L 100 09/18/20 06:18 34.7 C L 103 H 101/52 L 100 09/18/20 06:17 34.7 C L 104 H 100 09/18/20 06:16 34.7 C L 104 H 107/47 L 100 09/18/20 06:14 34.7 C L 104 H 102/46 L 100 09/18/20 06:12 34.7 C L 105 H 116/45 L 100 09/18/20 06:11 34.6 C L 106 H 106/42 L 100 09/18/20 06:08 34.6 C L 105 H 145/39 H 99 09/18/20 06:06 34.6 C L 102 H 110/40 L 98 09/18/20 06:05 34.6 C L 104 H 100/47 L 98 09/18/20 06:03 34.5 C L 102 H 97/53 L 98 09/18/20 05:57 34.5 C L 91 H 78/35 L 87 L 09/18/20 05:56 34.4 C L 91 H 87 L 09/18/20 05:55 34.4 C L 91 H 74/40 L 87 L 09/18/20 05:51 34.4 C L 92 H 88 L 09/18/20 05:50 34.4 C L 92 H 80/38 L 89 L 09/18/20 05:48 34.3 C L 92 H 108/37 L 90 09/18/20 05:46 34.3 C L 91 H 93 09/18/20 05:45 34.3 C L 93 H 91/43 L 93 09/18/20 05:41 34.2 C L 93 H 98 09/18/20 05:40 34.2 C L 93 H 103/45 L 98 09/18/20 05:36 34.1 C L 93 H 98 09/18/20 05:35 34.1 C L 92 H 93/42 L 98 09/18/20 05:33 34.1 C L 93 H 94/43 L 98 09/18/20 05:31 34.1 C L 93 H 98 09/18/20 05:30 34.0 C L 93 H 103/45 L 98 09/18/20 05:28 34.0 C L 93 H 106/43 L 98 09/18/20 05:27 34.0 C L 93 H 98 09/18/20 05:26 34.0 C L 92 H 106/41 L 98 09/18/20 05:25 34.0 C L 92 H 110/51 L 97 09/18/20 05:20 33.9 C L 91 H 97 09/18/20 05:16 33.8 C L 90 97 09/18/20 05:15 33.8 C L 91 H 104/41 L 97 09/18/20 05:11 33.7 C L 90 98 09/18/20 05:10 33.7 C L 90 105/48 L 99 09/18/20 05:06 33.7 C L 90 99 09/18/20 05:05 33.6 C L 90 118/46 L 99 09/18/20 05:01 33.6 C L 89 100 09/18/20 05:00 33.5 C L 90 104/44 L 99 09/18/20 04:55 33.4 C L 89 109/47 L 99 09/18/20 04:50 33.4 C L 89 126/42 L 99 09/18/20 04:46 33.3 C L 88 98 09/18/20 04:45 33.3 C L 88 127/45 L 99 09/18/20 04:40 33.2 C L 88 111/47 L 100 09/18/20 04:35 33.1 C L 87 121/46 L 99 09/18/20 04:31 33.1 C L 88 99 09/18/20 04:30 33.1 C L 87 115/49 L 99 09/18/20 04:25 33.0 C L 86 121/40 L 99 09/18/20 04:24 33.0 C L 87 109/47 L 99 09/18/20 04:20 32.9 C L 86 125/43 L 98 09/18/20 04:16 32.8 C L 85 98 09/18/20 04:15 32.8 C L 85 110/51 L 98 09/18/20 04:10 32.7 C L 84 115/50 L 98 09/18/20 04:04 32.6 C L 89 118/50 L 98 09/18/20 04:01 32.6 C L 83 98 09/18/20 03:59 32.6 C L 84 109/54 L 98 09/18/20 03:54 32.5 C L 83 119/51 L 98 09/18/20 03:49 32.4 C L 82 110/57 L 98 09/18/20 03:46 32.4 C L 82 97 09/18/20 03:45 32.3 C L 82 107/49 L 98 09/18/20 03:41 32.3 C L 81 98 09/18/20 03:40 32.3 C L 81 129/48 L 98 09/18/20 03:36 32.2 C L 81 98 09/18/20 03:34 32.2 C L 81 120/52 L 98 09/18/20 03:31 32.1 C L 82 98 09/18/20 03:30 32.1 C L 81 119/53 L 98 09/18/20 03:26 32.0 C L 80 98 09/18/20 03:24 32.0 C L 80 142/48 H 98 09/18/20 03:21 32.0 C L 80 98 09/18/20 03:19 31.9 C L 80 119/61 98 09/18/20 03:16 31.9 C L 80 98 09/18/20 03:14 31.9 C L 79 136/56 L 98 09/18/20 03:11 31.8 C L 79 99 09/18/20 03:09 31.8 C L 79 142/56 H 99 09/18/20 03:06 31.7 C L 79 99 09/18/20 03:04 31.7 C L 78 122/63 100 09/18/20 03:01 31.7 C L 79 99 09/18/20 02:59 31.6 C L 78 136/57 L 99 09/18/20 02:56 31.6 C L 79 99 09/18/20 02:54 31.6 C L 78 128/56 L 99 09/18/20 02:51 79 30 H 99 09/18/20 02:50 77 09/18/20 02:25 77 09/18/20 02:21 30.9 C L 76 141/65 H 100 09/18/20 02:20 30.9 C L 76 100 09/18/20 02:16 30.9 C L 75 126/69 100 09/18/20 02:15 30.8 C L 75 100 09/18/20 02:11 30.8 C L 75 137/60 100 09/18/20 02:10 30.8 C L 76 100 09/18/20 02:06 30.7 C L 75 136/73 100 09/18/20 02:05 30.7 C L 75 100 09/18/20 02:02 30.3 C L 79 30 H 78/45 L 100 09/18/20 02:01 30.7 C L 74 135/60 100 09/18/20 02:00 30.6 C L 74 100 09/18/20 01:56 30.6 C L 74 118/66 100 09/18/20 01:55 30.6 C L 73 100 09/18/20 01:51 30.5 C L 73 110/69 100 09/18/20 01:50 30.5 C L 73 100 09/18/20 01:46 30.5 C L 73 132/70 100 09/18/20 01:45 30.5 C L 72 100 09/18/20 01:41 30.5 C L 73 115/75 100 09/18/20 01:40 30.4 C L 72 100 09/18/20 01:37 30.4 C L 72 100 09/18/20 01:36 30.4 C L 72 126/69 100 09/18/20 01:31 30.4 C L 72 134/64 100 09/18/20 01:30 30.4 C L 72 100 09/18/20 01:26 30.3 C L 72 139/71 100 09/18/20 01:21 30.3 C L 71 124/72 100 09/18/20 01:16 30.3 C L 71 127/64 100 09/18/20 01:15 30.3 C L 72 100 09/18/20 01:11 30.3 C L 72 123/58 L 100 09/18/20 01:06 30.3 C L 72 128/58 L 100 09/18/20 01:01 30.2 C L 71 131/64 100 09/18/20 01:00 30.2 C L 71 100 09/18/20 00:56 30.2 C L 72 126/55 L 100 09/18/20 00:51 30.2 C L 72 129/65 100 09/18/20 00:46 30.2 C L 72 135/57 L 100 09/18/20 00:45 30.3 C L 72 100 09/18/20 00:41 30.3 C L 73 120/61 100 09/18/20 00:36 30.3 C L 73 117/57 L 100 09/18/20 00:31 30.3 C L 74 118/58 L 100 09/18/20 00:30 30.3 C L 74 100 09/18/20 00:26 30.3 C L 75 128/51 L 100 09/18/20 00:23 74 09/18/20 00:21 30.3 C L 75 112/47 L 100 09/18/20 00:16 30.3 C L 76 32 H 103/50 L 100 09/18/20 00:15 30.3 C L 75 100 09/18/20 00:06 30.4 C L 79 100 Laboratory Results 09/18/20 07:35 09/18/20 07:35 Most recent ABG showed a pH 7.04 with a PCO2 of 21 and a PO2 of 162 with a bicarb of 6. Lactate of 14 Beta hydroxybutyrate over 100 Fibrinogen less than 50 PTT greater than 150 INR 5.2 Lipase over 11,000, down from 13,000 on presentation Tox screen on presentation negative Salicylates negative Diagnostic Findings KUB was independently reviewed. It demonstrates dilated loops of bowel concerning for ileus versus distal small bowel obstruction. Echocardiogram also reviewed. Left ventricle normal with a hyperdynamic squeeze. EF of greater than 70%. Right ventricular cavity is small without valvular disease. IVC collapse with inspiratory effort is noted suggesting volume depletion. No obvious valvular heart disease. Chest x-ray from today was independently reviewed. The endotracheal tube and central line appear to be in good position. No cardiomegaly. Lung bolden are relatively clear. CT of the abdomen performed early this morning demonstrated an indistinct p ancreatic bed with some surrounding peripancreatic fluid. Coding Level of Care Code Critical Care ea addt'l 30 min Diagnoses Admitted to intensive care unit Z78.9 Metabolic acidosis E87.2 DKA (diabetic ketoacidoses) E13.11 Diabetes mellitus complication detail: with coma Diabetes mellitus type: other specified (including WENDY) Anemia D64.9 Anemia type: unspecified type Acute hypokalemia E87.6 Cardiac arrest I46.9 Time Spent (min) 135 Comment 03013 and [id number] x 2 (1) DKA (diabetic ketoacidoses) Diabetes mellitus complication detail: with coma Diabetes mellitus type: other specified (including WENDY) Qualified Code(s): E13.11 - Other specified diabetes mellitus with ketoacidosis with coma (2) Anemia Anemia type: unspecified type Qualified Code(s): D64.9 - Anemia, unspecified
[2020-09-18] MEDS ORDERED: MEROPENEM CONSULT ACITVE PRN (12:18)
--- NOTE | 2020-09-18 12:39 | Communication Note ---
Date of Service: September 18, 2020 Spoke with Cristian Cunningham, patient's sister. She has been somewhat estranged from the patient and has not spoken to him in some time. She has no knowledge of a or the brother, (Ben Pulido) numbers that were given by the senior care for contact information. She states the patient has 7 siblings. They are relatively estranged due to family issues. She has no information on advanced directives. She is going to try and speak to his siblings and arrange for a phone call later today to review case. I did review the severity of the patient's illness with unclear/uncertain prognosis. I again reiterated that I would not favor additional CPR or defibrillation at this point time as I think it is unlikely to affect the patient's overall outcome. She is appropriately distressed and will get back to us later today. Continue supportive care. Updated bedside critical care nurse. Additional critical care time 25 minutes Coding Level of Care Code Critical Care neil addt'l 30 min
[2020-09-18] MEDS ORDERED: MEROPENEM 500 MG in SYRINGE 0 ML IV SCH (12:45)
--- NOTE | 2020-09-18 14:04 | Hospitalist Progress Note ---
Date of Service September 18, 2020 Assessment & Plan (1) Admitted to intensive care unit: 20-year-old male with a history of obesity and no documented history of diabetes presented with severe DKA resulting in an [id number] cardiac arrest with ROSC obtained in the field. Patient currently unstable with multiorgan failure in the ICU. #DKA Patient without a significant history of diabetes, has had about 1 week of nausea vomiting and abdominal pain treated in the [facility]. Huerta bsequently progressed to cardiac arrest, uncertain of timing of insulin administration and blood sugar measurement. At some point during the event he was given 20 units of subcu insulin and blood sugar measurement was obtained demonstrating a blood sugar of 600. Patient was brought to the [facility] emergency department and subsequently transferred to the ICU. Due to significant metabolic acidosis associated with the DKA he experienced a cardiac arrest in the field. A1c was greater than 12. -DKA care per ICU -Insulin drip ordered, continue until gap is closed and ketones cleared #Cardiac arrest Patient became profoundly acidotic in the field leading to cardiac arrest and subsequent multisystem organ failure. The cardiac arrest occurred in the field, CPR was provided, and ROSC was achieved. #Mechanical ventilation for airway protection Oxygenating well #Distributive shock Currently the patient is experiencing profound shock requiring maximum dose of the 3 pressors. #Multisystem organ failure Profound acidosis secondary to DKA resulted in significant multisystem organ failure. Patient is currently intubated and mechanically ventilated at high risk for third spacing and progressive pulmonary edema/cards. He is at high risk for anoxic encephalopathy, currently minimally responsive. Patient is developing anuria nephrology is consulted. #Microcytic hypochromic anemia Dropping h/h. No sign of active bleeding. ? underlying thalassemia with intraabdominal bleeding. See below Monitoring h/h and to transfuse prn. #Abdominal distention Concern of intraabdominal hemorrhage. ICU team discussing laparotomy for decompression. FENa:NPO Intubated Code Status:Full PT/OT: not indicated at present Dispo:ICU - overall prognosis - very poor Jose Sanchez MD PGY 2, FCM This chart was completed utilizing [employer] voice recognition software. Grammatical errors, random word insertions, pronoun errors, and in complete sentences are an occasional consequence of the system. Any questions or concerns about the content, text, or information contained within the body of this dictation should be addressed directly to the physician for clarification. Admission and Anticipated Discharge Date Admission Date: September 17, 2020 Supervising Physician Co-Signing Physician Notes Resident Physician Supervision Note: I independently interviewed and examined the patient and verified the vaughan history and physical, reviewed labs and image studies, discussed the case with the resident Dr. Sanchez and agree with the findings and care plan. Subjective History is limited as patient currently intubated and sedated Physical Exam Physical Exam: General: Ill-appearing, mechanically ventilated patient HEENT: Normocephalic atraumatic Neck: Trachea midline, normal to visual inspection Cardiac: Tachycardic otherwise normal S1, normal S2, I did not appreciate significant murmurs rubs or gallops, negative pedal edema Respiratory: Mechanically ventilated, did not appreciate any significant wheezes, rales, rhonchi GI: Distended abdomen, bowel sounds present Neuro: Unable to assess secondary to sedation Psych: Unable to assess secondary to sedation Results & Data Results & Data ([facility]) Vital Signs (Past 12 Hours) Vital Signs Temp Pulse Pulse Resp BP BP Pulse Ox 09/18/20 08:00 96 H 129/41 L 09/18/20 07:11 101 H 37 H 100 09/18/20 06:30 34.9 C L 102 H 09/18/20 06:28 34.9 C L 100 H 110/47 L 100 09/18/20 06:26 34.9 C L 100 H 91/49 L 98 09/18/20 06:24 34.8 C L 101 H 119/39 L 100 09/18/20 06:22 34.8 C L 101 H 99/46 L 100 09/18/20 06:21 34.8 C L 102 H 100 09/18/20 06:20 34.8 C L 102 H 104/55 L 100 09/18/20 06:18 34.7 C L 103 H 101/52 L 100 09/18/20 06:17 34.7 C L 104 H 100 09/18/20 06:16 34.7 C L 104 H 107/47 L 100 09/18/20 06:14 34.7 C L 104 H 102/46 L 100 09/18/20 06:12 34.7 C L 105 H 116/45 L 100 09/18/20 06:11 34.6 C L 106 H 106/42 L 100 09/18/20 06:08 34.6 C L 105 H 145/39 H 99 09/18/20 06:06 34.6 C L 102 H 110/40 L 98 09/18/20 06:05 34.6 C L 104 H 100/47 L 98 09/18/20 06:03 34.5 C L 102 H 97/53 L 98 09/18/20 05:57 34.5 C L 91 H 78/35 L 87 L 09/18/20 05:56 34.4 C L 91 H 87 L 09/18/20 05:55 34.4 C L 91 H 74/40 L 87 L 09/18/20 05:51 34.4 C L 92 H 88 L 09/18/20 05:50 34.4 C L 92 H 80/38 L 89 L 09/18/20 05:48 34.3 C L 92 H 108/37 L 90 09/18/20 05:46 34.3 C L 91 H 93 09/18/20 05:45 34.3 C L 93 H 91/43 L 93 09/18/20 05:41 34.2 C L 93 H 98 09/18/20 05:40 34.2 C L 93 H 103/45 L 98 09/18/20 05:36 34.1 C L 93 H 98 09/18/20 05:35 34.1 C L 92 H 93/42 L 98 09/18/20 05:33 34.1 C L 93 H 94/43 L 98 09/18/20 05:31 34.1 C L 93 H 98 09/18/20 05:30 34.0 C L 93 H 103/45 L 98 09/18/20 05:28 34.0 C L 93 H 106/43 L 98 09/18/20 05:27 34.0 C L 93 H 98 09/18/20 05:26 34.0 C L 92 H 106/41 L 98 09/18/20 05:25 34.0 C L 92 H 110/51 L 97 09/18/20 05:20 33.9 C L 91 H 97 09/18/20 05:16 33.8 C L 90 97 09/18/20 05:15 33.8 C L 91 H 104/41 L 97 09/18/20 05:11 33.7 C L 90 98 09/18/20 05:10 33.7 C L 90 105/48 L 99 09/18/20 05:06 33.7 C L 90 99 09/18/20 05:05 33.6 C L 90 118/46 L 99 09/18/20 05:01 33.6 C L 89 100 09/18/20 05:00 33.5 C L 90 104/44 L 99 09/18/20 04:55 33.4 C L 89 109/47 L 99 09/18/20 04:50 33.4 C L 89 126/42 L 99 09/18/20 04:46 33.3 C L 88 98 09/18/20 04:45 33.3 C L 88 127/45 L 99 09/18/20 04:40 33.2 C L 88 111/47 L 100 09/18/20 04:35 33.1 C L 87 121/46 L 99 09/18/20 04:31 33.1 C L 88 99 09/18/20 04:30 33.1 C L 87 115/49 L 99 09/18/20 04:25 33.0 C L 86 121/40 L 99 09/18/20 04:24 33.0 C L 87 109/47 L 99 09/18/20 04:20 32.9 C L 86 125/43 L 98 09/18/20 04:16 32.8 C L 85 98 09/18/20 04:15 32.8 C L 85 110/51 L 98 09/18/20 04:10 32.7 C L 84 115/50 L 98 09/18/20 04:04 32.6 C L 89 118/50 L 98 09/18/20 04:01 32.6 C L 83 98 09/18/20 03:59 32.6 C L 84 109/54 L 98 09/18/20 03:54 32.5 C L 83 119/51 L 98 09/18/20 03:49 32.4 C L 82 110/57 L 98 09/18/20 03:46 32.4 C L 82 97 09/18/20 03:45 32.3 C L 82 107/49 L 98 09/18/20 03:41 32.3 C L 81 98 09/18/20 03:40 32.3 C L 81 129/48 L 98 09/18/20 03:36 32.2 C L 81 98 09/18/20 03:34 32.2 C L 81 120/52 L 98 09/18/20 03:31 32.1 C L 82 98 09/18/20 03:30 32.1 C L 81 119/53 L 98 09/18/20 03:26 32.0 C L 80 98 09/18/20 03:24 32.0 C L 80 142/48 H 98 09/18/20 03:21 32.0 C L 80 98 09/18/20 03:19 31.9 C L 80 119/61 98 09/18/20 03:16 31.9 C L 80 98 09/18/20 03:14 31.9 C L 79 136/56 L 98 09/18/20 03:11 31.8 C L 79 99 09/18/20 03:09 31.8 C L 79 142/56 H 99 09/18/20 03:06 31.7 C L 79 99 09/18/20 03:04 31.7 C L 78 122/63 100 09/18/20 03:01 31.7 C L 79 99 09/18/20 02:59 31.6 C L 78 136/57 L 99 09/18/20 02:56 31.6 C L 79 99 09/18/20 02:54 31.6 C L 78 128/56 L 99 09/18/20 02:51 79 30 H 99 09/18/20 02:50 77 09/18/20 02:25 77 09/18/20 02:21 30.9 C L 76 141/65 H 100 09/18/20 02:20 30.9 C L 76 100 09/18/20 02:16 30.9 C L 75 126/69 100 09/18/20 02:15 30.8 C L 75 100 09/18/20 02:11 30.8 C L 75 137/60 100 09/18/20 02:10 30.8 C L 76 100 09/18/20 02:06 30.7 C L 75 136/73 100 09/18/20 02:05 30.7 C L 75 100 09/18/20 02:02 30.3 C L 79 30 H 78/45 L 100 09/18/20 02:01 30.7 C L 74 135/60 100 09/18/20 02:00 30.6 C L 74 100 09/18/20 01:56 30.6 C L 74 118/66 100 09/18/20 01:55 30.6 C L 73 100 09/18/20 01:51 30.5 C L 73 110/69 100 09/18/20 01:50 30.5 C L 73 100 09/18/20 01:46 30.5 C L 73 132/70 100 09/18/20 01:45 30.5 C L 72 100 09/18/20 01:41 30.5 C L 73 115/75 100 09/18/20 01:40 30.4 C L 72 100 09/18/20 01:37 30.4 C L 72 100 09/18/20 01:36 30.4 C L 72 126/69 100 09/18/20 01:31 30.4 C L 72 134/64 100 09/18/20 01:30 30.4 C L 72 100 09/18/20 01:26 30.3 C L 72 139/71 100 09/18/20 01:21 30.3 C L 71 124/72 100 09/18/20 01:16 30.3 C L 71 127/64 100 09/18/20 01:15 30.3 C L 72 100 09/18/20 01:11 30.3 C L 72 123/58 L 100 09/18/20 01:06 30.3 C L 72 128/58 L 100 09/18/20 01:01 30.2 C L 71 131/64 100 09/18/20 01:00 30.2 C L 71 100 09/18/20 00:56 30.2 C L 72 126/55 L 100 09/18/20 00:51 30.2 C L 72 129/65 100 09/18/20 00:46 30.2 C L 72 135/57 L 100 09/18/20 00:45 30.3 C L 72 100 09/18/20 00:41 30.3 C L 73 120/61 100 09/18/20 00:36 30.3 C L 73 117/57 L 100 09/18/20 00:31 30.3 C L 74 118/58 L 100 09/18/20 00:30 30.3 C L 74 100 09/18/20 00:26 30.3 C L 75 128/51 L 100 09/18/20 00:23 74 09/18/20 00:21 30.3 C L 75 112/47 L 100 09/18/20 00:16 30.3 C L 76 32 H 103/50 L 100 09/18/20 00:15 30.3 C L 75 100 09/18/20 00:06 30.4 C L 79 100 09/17/20 23:50 30 H 09/17/20 23:40 30.3 C L 79 100 09/17/20 23:25 30.9 C L 67 100 09/17/20 23:20 30.9 C L 67 108/50 L 100 09/17/20 23:15 30.9 C L 68 100 09/17/20 23:10 31.0 C L 68 100 09/17/20 23:06 31.0 C L 67 104/40 L 100 09/17/20 23:04 31.0 C L 68 100/40 L 100 09/17/20 23:01 31.1 C L 69 100 09/17/20 23:00 31.1 C L 69 100 09/17/20 22:56 31.1 C L 68 88/47 L 100 09/17/20 22:50 31.1 C L 70 79/41 L 100 09/17/20 22:45 31.2 C L 74 78/45 L 100 09/17/20 22:41 31.2 C L 74 54/40 L 100 09/17/20 22:35 31.3 C L 73 75/45 L 100 09/17/20 22:30 31.4 C L 67 58/29 L 100 09/17/20 22:27 31.4 C L 65 56/30 L 98 09/17/20 22:22 31.5 C L 99 H 47/33 L 97 09/17/20 22:21 100 09/17/20 22:18 31.6 C L 89 72/52 L 98 09/17/20 22:16 31.6 C L 88 74/45 L 09/17/20 22:15 31.6 C L 99 H 09/17/20 22:10 31.6 C L 187 H 100 09/17/20 22:05 31.6 C L 208 H 09/17/20 22:02 31.5 C L 0 L 103/36 L 09/17/20 22:00 31 C L 75 21 100 09/17/20 21:56 88 28 H 100 Laboratory Results 09/18/20 09/18/20 09/18/20 Range/Units 11:13 11:04 10:17 WBC (4.8-10.8) K/uL RBC (4.7-6.1) M/uL Hgb (14.0-18.0) g/dL POC Hgb (14.0-18.0) g/dl Hct (42-52) % POC Hct (42-52) % MCV (80-100) fL MCH (25-34) pg MCHC (32-36) g/dL RDW Std Deviation (36.4-46.3) fL RDW Coeff of Fermin (11.5-14.5) % Plt Count (130-400) K/uL MPV (7.4-10.4) fL Immature Gran % (Auto) % Neut % (Auto) % Lymph % (Auto) % [place] % (Auto) % Eos % (Auto) % Baso % (Auto) % Neut # (Auto) (1.4-6.5) K/uL Lymph # (Auto) (1.2-3.4) K/uL [place] # (Auto) (0.11-0.59) K/uL Eos # (Auto) (0-0.5) K/uL Baso # (Auto) (0-0.2) K/uL Immature Gran # (Auto) (0.00-0.02) K/uL Neutrophils % (Manual) % Lymphocytes % (Manual) % Monocytes % (Manual) % Myelocytes % (Man) % Neutrophils # (Manual) (1.4-6.5) K/uL Total Absolute Neuts (1.4-6.5) K/uL Lymphocytes # (Manual) (1.2-3.4) K/uL Total Abs Lymphocytes (1.2-3.4) K/uL Monocytes # (Manual) (0.11-0.59) K/uL Myelocytes # (Manual) (0-0) K/uL Platelet Estimate (Normal) PT INR APTT PTT Ratio Fibrinogen (184-400) mg/dl Sample Site POC pH 7.04 L* (7.35-7.45) POC pCO2 21 L (35-46) mmHg POC pO2 162 H (80-95) mmHg POC HCO3 6 L (19-24) katlin/L POC Base Excess -25.0 L (-9-1.8) katlin/L ABG pH (Temp Correct) (7.35-7.45) ABG pCO2 (Temp Corrct (35-46) mmHg POC ABG pO2 at Pt Temp POC ABG O2 Sat 98.0 H (90-95) % Dipak Test O2 Delivery Device POC O2 Rate Minute Ventilation POC FiO2 % Tidal Volume PEEP POC Sodium (135-144) mmol/L Sodium (136-145) mmol/L POC Potassium (3.3-5.0) mmol/L Potassium (3.5-5.1) mmol/L POC Chloride (101-112) mmol/L Chloride (98-107) mmol/L Carbon Dioxide (21-32) mmol/L POC Total CO2 6 L* (24-31) mmol/L Anion Gap (3-11) POC Anion Gap POC BUN (7-18) mg/dl BUN (7-18) mg/dl Creatinine (0.6-1.4) mg/dl POC Creatinine (0.6-1.3) mg/dl Est Cr Clr Drug Dosing Est GFR ( Amer) Est GFR (Non-Af Amer) BUN/Creatinine Ratio (10-20) Glucose (70-99) mg/dl POC Glucose (70-99) mg/dl POC Glucose (other) 298 H 344 H (70-99) mg/dl Estimat Average Glucose Estimated Ave Glu mmol/L Estimated Ave Glu mg/dL Hemoglobin A1c Hgb A1c Pathologist Com Osmolality (280-300) mOsm/kg Lactate (0.4-2.0) mmol/L Calcium (8.5-10.1) mg/dl POC Ioniz Calcium Marley (1.12-1.32) mmol/l Ionized Calcium (1.12-1.32) mmol/L Phosphorus (2.5-4.9) mg/dl Magnesium (1.8-2.4) mg/dl Total Bilirubin (0.2-1) mg/dl Direct Bilirubin (0-0.2) mg/dl AST (15-37) U/L ALT (12-78) U/L Alkaline Phosphatase (45-117) U/L Total Creatine Kinase (39-308) U/L Troponin I (0-0.045) ng/ml Total Protein (6.4-8.2) gm/dl Albumin (3.4-5.0) gm/dl Globulin (2.5-4.0) gm/dl Albumin/Globulin Ratio (0.9-2) Lipase (73-393) U/L Beta-Hydroxybutyric Acd (0.2-2.81) mg/dl Procalcitonin (0-0.5) ng/ml TSH (0.300-4.500) uIu/ml Random Cortisol mcg/dl Urine Color Urine Appearance (Clear) Urine pH (4.5-7.5) Ur Specific [place] (1.000-1.030) Urine Protein (Negative) Urine Glucose (UA) (Negative) Urine Ketones (Negative) Urine Blood (Negative) Urine Nitrite (Negative) Urine Bilirubin (Negative) Urine Urobilinogen (Negative) Ur Leukocyte Esterase (Negative) Urine WBC (Auto) (0-5) /hpf Urine RBC (Auto) (0-4) /hpf U Hyaline Cast (Auto) (0-5) /lpf U Epithel Cells (Auto) (0-5) /lpf Urine Bacteria (Auto) (Negative) Granular Casts (0) /lpf Urine Osmolality (500-800) mOsm/kg Nasal Screen MRSA (PCR) (Negative) Salicylates (2.8-20) mg/dl Urine Opiates Screen (Neg) Ur Methadone, Qual (Neg) Urine Barbiturates (Neg) Ur Phencyclidine (PCP) (Neg) U Amphetamin/Meth Scrn (Neg) MDMA (Ecstasy) Screen (Neg) U Benzodiazepines Scrn (Neg) Ur Cocaine Metabolite (Neg) U Marijuana (THC) Screen (Neg) COVID-19 Eval Order SARS-CoV-2 (PCR) (Negative) Influenza Type A (PCR) (Neg) Influenza Type B (PCR) (Neg) RSV (RT-PCR) (Neg) Blood Type Blood Type Recheck Antibody Screen Crossmatch 09/18/20 09/18/20 09/18/20 Range/Units 09:56 09:56 07:35 WBC (4.8-10.8) K/uL RBC (4.7-6.1) M/uL Hgb (14.0-18.0) g/dL POC Hgb (14.0-18.0) g/dl Hct (42-52) % POC Hct (42-52) % MCV (80-100) fL MCH (25-34) pg MCHC (32-36) g/dL RDW Std Deviation (36.4-46.3) fL RDW Coeff of Fermin (11.5-14.5) % Plt Count (130-400) K/uL MPV (7.4-10.4) fL Immature Gran % (Auto) % Neut % (Auto) % Lymph % (Auto) % [place] % (Auto) % Eos % (Auto) % Baso % (Auto) % Neut # (Auto) (1.4-6.5) K/uL Lymph # (Auto) (1.2-3.4) K/uL [place] # (Auto) (0.11-0.59) K/uL Eos # (Auto) (0-0.5) K/uL Baso # (Auto) (0-0.2) K/uL Immature Gran # (Auto) (0.00-0.02) K/uL Neutrophils % (Manual) % Lymphocytes % (Manual) % Monocytes % (Manual) % Myelocytes % (Man) % Neutrophils # (Manual) (1.4-6.5) K/uL Total Absolute Neuts (1.4-6.5) K/uL Lymphocytes # (Manual) (1.2-3.4) K/uL Total Abs Lymphocytes (1.2-3.4) K/uL Monocytes # (Manual) (0.11-0.59) K/uL Myelocytes # (Manual) (0-0) K/uL Platelet Estimate (Normal) PT 46.3 H INR 5.2 H APTT > 139.0 H* > 139.0 H* PTT Ratio > 5.3 > 5.3 Fibrinogen < 50 L* (184-400) mg/dl Sample Site POC pH (7.35-7.45) POC pCO2 (35-46) mmHg POC pO2 (80-95) mmHg POC HCO3 (19-24) katlin/L POC Base Excess (-9-1.8) katlin/L ABG pH (Temp Correct) (7.35-7.45) ABG pCO2 (Temp Corrct (35-46) mmHg POC ABG pO2 at Pt Temp POC ABG O2 Sat (90-95) % Dipak Test O2 Delivery Device POC O2 Rate Minute Ventilation POC FiO2 % Tidal Volume PEEP POC Sodium (135-144) mmol/L Sodium (136-145) mmol/L POC Potassium (3.3-5.0) mmol/L Potassium (3.5-5.1) mmol/L POC Chloride (101-112) mmol/L Chloride (98-107) mmol/L Carbon Dioxide (21-32) mmol/L POC Total CO2 (24-31) mmol/L Anion Gap (3-11) POC Anion Gap POC BUN (7-18) mg/dl BUN (7-18) mg/dl Creatinine (0.6-1.4) mg/dl POC Creatinine (0.6-1.3) mg/dl Est Cr Clr Drug Dosing Est GFR ( Amer) Est GFR (Non-Af Amer) BUN/Creatinine Ratio (10-20) Glucose (70-99) mg/dl POC Glucose (70-99) mg/dl POC Glucose (other) (70-99) mg/dl Estimat Average Glucose Estimated Ave Glu mmol/L Estimated Ave Glu mg/dL Hemoglobin A1c Hgb A1c Pathologist Com Osmolality (280-300) mOsm/kg Lactate (0.4-2.0) mmol/L Calcium (8.5-10.1) mg/dl POC Ioniz Calcium Marley (1.12-1.32) mmol/l Ionized Calcium (1.12-1.32) mmol/L Phosphorus (2.5-4.9) mg/dl Magnesium (1.8-2.4) mg/dl Total Bilirubin (0.2-1) mg/dl Direct Bilirubin (0-0.2) mg/dl AST (15-37) U/L ALT (12-78) U/L Alkaline Phosphatase (45-117) U/L Total Creatine Kinase (39-308) U/L Troponin I (0-0.045) ng/ml Total Protein (6.4-8.2) gm/dl Albumin (3.4-5.0) gm/dl Globulin (2.5-4.0) gm/dl Albumin/Globulin Ratio (0.9-2) Lipase (73-393) U/L Beta-Hydroxybutyric Acd (0.2-2.81) mg/dl Procalcitonin (0-0.5) ng/ml TSH (0.300-4.500) uIu/ml Random Cortisol mcg/dl Urine Color Urine Appearance (Clear) Urine pH (4.5-7.5) Ur Specific [place] (1.000-1.030) Urine Protein (Negative) Urine Glucose (UA) (Negative) Urine Ketones (Negative) Urine Blood (Negative) Urine Nitrite (Negative) Urine Bilirubin (Negative) Urine Urobilinogen (Negative) Ur Leukocyte Esterase (Negative) Urine WBC (Auto) (0-5) /hpf Urine RBC (Auto) (0-4) /hpf U Hyaline Cast (Auto) (0-5) /lpf U Epithel Cells (Auto) (0-5) /lpf Urine Bacteria (Auto) (Negative) Granular Casts (0) /lpf Urine Osmolality (500-800) mOsm/kg Nasal Screen MRSA (PCR) (Negative) Salicylates (2.8-20) mg/dl Urine Opiates Screen (Neg) Ur Methadone, Qual (Neg) Urine Barbiturates (Neg) Ur Phencyclidine (PCP) (Neg) U Amphetamin/Meth Scrn (Neg) MDMA (Ecstasy) Screen (Neg) U Benzodiazepines Scrn (Neg) Ur Cocaine Metabolite (Neg) U Marijuana (THC) Screen (Neg) COVID-19 Eval Order SARS-CoV-2 (PCR) (Negative) Influenza Type A (PCR) (Neg) Influenza Type B (PCR) (Neg) RSV (RT-PCR) (Neg) Blood Type A Positive Blood Type Recheck Antibody Screen NEGATIVE Crossmatch See Detail 09/18/20 09/18/20 09/18/20 Range/Units 07:35 07:35 07:35 WBC (4.8-10.8) K/uL RBC (4.7-6.1) M/uL Hgb 7.7 L (14.0-18.0) g/dL POC Hgb (14.0-18.0) g/dl Hct 21.8 L (42-52) % POC Hct (42-52) % MCV (80-100) fL MCH (25-34) pg MCHC (32-36) g/dL RDW Std Deviation (36.4-46.3) fL RDW Coeff of Fermin (11.5-14.5) % Plt Count (130-400) K/uL MPV (7.4-10.4) fL Immature Gran % (Auto) % Neut % (Auto) % Lymph % (Auto) % [place] % (Auto) % Eos % (Auto) % Baso % (Auto) % Neut # (Auto) (1.4-6.5) K/uL Lymph # (Auto) (1.2-3.4) K/uL [place] # (Auto) (0.11-0.59) K/uL Eos # (Auto) (0-0.5) K/uL Baso # (Auto) (0-0.2) K/uL Immature Gran # (Auto) (0.00-0.02) K/uL Neutrophils % (Manual) % Lymphocytes % (Manual) % Monocytes % (Manual) % Myelocytes % (Man) % Neutrophils # (Manual) (1.4-6.5) K/uL Total Absolute Neuts (1.4-6.5) K/uL Lymphocytes # (Manual) (1.2-3.4) K/uL Total Abs Lymphocytes (1.2-3.4) K/uL Monocytes # (Manual) (0.11-0.59) K/uL Myelocytes # (Manual) (0-0) K/uL Platelet Estimate (Normal) PT INR APTT PTT Ratio Fibrinogen (184-400) mg/dl Sample Site POC pH (7.35-7.45) POC pCO2 (35-46) mmHg POC pO2 (80-95) mmHg POC HCO3 (19-24) katlin/L POC Base Excess (-9-1.8) katlin/L ABG pH (Temp Correct) (7.35-7.45) ABG pCO2 (Temp Corrct (35-46) mmHg POC ABG pO2 at Pt Temp POC ABG O2 Sat (90-95) % Dipak Test O2 Delivery Device POC O2 Rate Minute Ventilation POC FiO2 % Tidal Volume PEEP POC Sodium (135-144) mmol/L Sodium 152 H D (136-145) mmol/L POC Potassium (3.3-5.0) mmol/L Potassium 2.3 L* (3.5-5.1) mmol/L POC Chloride (101-112) mmol/L Chloride 105 (98-107) mmol/L Carbon Dioxide 17 L (21-32) mmol/L POC Total CO2 (24-31) mmol/L Anion Gap 30.0 H (3-11) POC Anion Gap POC BUN (7-18) mg/dl BUN 39 H (7-18) mg/dl Creatinine 3.47 H (0.6-1.4) mg/dl POC Creatinine (0.6-1.3) mg/dl Est Cr Clr Drug Dosing 42.8 Est GFR ( Amer) 27.6 Est GFR (Non-Af Amer) 23.8 BUN/Creatinine Ratio 11.3 (10-20) Glucose 626 H* (70-99) mg/dl POC Glucose (70-99) mg/dl POC Glucose (other) (70-99) mg/dl Estimat Average Glucose Estimated Ave Glu mmol/L Estimated Ave Glu mg/dL Hemoglobin A1c Hgb A1c Pathologist Com Osmolality (280-300) mOsm/kg Lactate (0.4-2.0) mmol/L Calcium 13.3 H* D (8.5-10.1) mg/dl POC Ioniz Calcium Marley (1.12-1.32) mmol/l Ionized Calcium 2.00 H* (1.12-1.32) mmol/L Phosphorus 4.9 D (2.5-4.9) mg/dl Magnesium 5.7 H* (1.8-2.4) mg/dl Total Bilirubin (0.2-1) mg/dl Direct Bilirubin (0-0.2) mg/dl AST (15-37) U/L ALT (12-78) U/L Alkaline Phosphatase (45-117) U/L Total Creatine Kinase (39-308) U/L Troponin I (0-0.045) ng/ml Total Protein (6.4-8.2) gm/dl Albumin (3.4-5.0) gm/dl Globulin (2.5-4.0) gm/dl Albumin/Globulin Ratio (0.9-2) Lipase (73-393) U/L Beta-Hydroxybutyric Acd (0.2-2.81) mg/dl Procalcitonin (0-0.5) ng/ml TSH (0.300-4.500) uIu/ml Random Cortisol mcg/dl Urine Color Urine Appearance (Clear) Urine pH (4.5-7.5) Ur Specific [place] (1.000-1.030) Urine Protein (Negative) Urine Glucose (UA) (Negative) Urine Ketones (Negative) Urine Blood (Negative) Urine Nitrite (Negative) Urine Bilirubin (Negative) Urine Urobilinogen (Negative) Ur Leukocyte Esterase (Negative) Urine WBC (Auto) (0-5) /hpf Urine RBC (Auto) (0-4) /hpf U Hyaline Cast (Auto) (0-5) /lpf U Epithel Cells (Auto) (0-5) /lpf Urine Bacteria (Auto) (Negative) Granular Casts (0) /lpf Urine Osmolality (500-800) mOsm/kg Nasal Screen MRSA (PCR) (Negative) Salicylates (2.8-20) mg/dl Urine Opiates Screen (Neg) Ur Methadone, Qual (Neg) Urine Barbiturates (Neg) Ur Phencyclidine (PCP) (Neg) U Amphetamin/Meth Scrn (Neg) MDMA (Ecstasy) Screen (Neg) U Benzodiazepines Scrn (Neg) Ur Cocaine Metabolite (Neg) U Marijuana (THC) Screen (Neg) COVID-19 Eval Order SARS-CoV-2 (PCR) (Negative) Influenza Type A (PCR) (Neg) Influenza Type B (PCR) (Neg) RSV (RT-PCR) (Neg) Blood Type Blood Type Recheck Antibody Screen Crossmatch 09/18/20 09/18/20 09/18/20 Range/Units 07:22 06:49 04:48 WBC (4.8-10.8) K/uL RBC (4.7-6.1) M/uL Hgb (14.0-18.0) g/dL POC Hgb 8.5 L (14.0-18.0) g/dl Hct (42-52) % POC Hct 25 L (42-52) % MCV (80-100) fL MCH (25-34) pg MCHC (32-36) g/dL RDW Std Deviation (36.4-46.3) fL RDW Coeff of Fermin (11.5-14.5) % Plt Count (130-400) K/uL MPV (7.4-10.4) fL Immature Gran % (Auto) % Neut % (Auto) % Lymph % (Auto) % [place] % (Auto) % Eos % (Auto) % Baso % (Auto) % Neut # (Auto) (1.4-6.5) K/uL Lymph # (Auto) (1.2-3.4) K/uL [place] # (Auto) (0.11-0.59) K/uL Eos # (Auto) (0-0.5) K/uL Baso # (Auto) (0-0.2) K/uL Immature Gran # (Auto) (0.00-0.02) K/uL Neutrophils % (Manual) % Lymphocytes % (Manual) % Monocytes % (Manual) % Myelocytes % (Man) % Neutrophils # (Manual) (1.4-6.5) K/uL Total Absolute Neuts (1.4-6.5) K/uL Lymphocytes # (Manual) (1.2-3.4) K/uL Total Abs Lymphocytes (1.2-3.4) K/uL Monocytes # (Manual) (0.11-0.59) K/uL Myelocytes # (Manual) (0-0) K/uL Platelet Estimate (Normal) PT INR APTT PTT Ratio Fibrinogen (184-400) mg/dl Sample Site Art Line POC pH 7.10 L* (7.35-7.45) POC pCO2 23 L (35-46) mmHg POC pO2 178 H (80-95) mmHg POC HCO3 7 L (19-24) [place]/L POC Base Excess -23.0 L (-9-1.8) [place]/L ABG pH (Temp Correct) 7.117 L* (7.35-7.45) ABG pCO2 (Temp Corrct 22 L (35-46) mmHg POC ABG pO2 at Pt Temp 169 POC ABG O2 Sat 99.0 H (90-95) % [place] Test NA O2 Delivery Device Ventilator POC O2 Rate 30 Minute Ventilation 21.9 POC FiO2 40 % [place] Volume 600 PEEP 5 POC Sodium 140 (135-144) mmol/L Sodium (136-145) mmol/L POC Potassium 2.4 L* (3.3-5.0) mmol/L Potassium (3.5-5.1) mmol/L POC Chloride (101-112) mmol/L Chloride (98-107) mmol/L Carbon Dioxide (21-32) mmol/L POC Total CO2 8 L* (24-31) mmol/L Anion Gap (3-11) POC Anion Gap POC BUN (7-18) mg/dl BUN (7-18) mg/dl Creatinine (0.6-1.4) mg/dl POC Creatinine (0.6-1.3) mg/dl Est Cr Clr Drug Dosing Est GFR ( Amer) Est GFR (Non-Af Amer) BUN/Creatinine Ratio (10-20) Glucose (70-99) mg/dl POC Glucose (70-99) mg/dl POC Glucose (other) > 700 H* (70-99) mg/dl Estimat Average Glucose Estimated Ave Glu mmol/L Pending Estimated Ave Glu mg/dL Pending Hemoglobin A1c Pending Hgb A1c Pathologist Com Osmolality (280-300) mOsm/kg Lactate (0.4-2.0) mmol/L Calcium (8.5-10.1) mg/dl POC Ioniz Calcium [place] (1.12-1.32) mmol/l Ionized Calcium (1.12-1.32) mmol/L Phosphorus (2.5-4.9) mg/dl Magnesium (1.8-2.4) mg/dl Total Bilirubin (0.2-1) mg/dl Direct Bilirubin (0-0.2) mg/dl AST (15-37) U/L ALT (12-78) U/L Alkaline Phosphatase (45-117) U/L Total Creatine Kinase (39-308) U/L Troponin I (0-0.045) ng/ml Total Protein (6.4-8.2) gm/dl Albumin (3.4-5.0) gm/dl Globulin (2.5-4.0) gm/dl Albumin/Globulin Ratio (0.9-2) Lipase (73-393) U/L Beta-Hydroxybutyric Acd (0.2-2.81) mg/dl Procalcitonin (0-0.5) ng/ml TSH (0.300-4.500) uIu/ml Random Cortisol mcg/dl Urine Color Urine Appearance (Clear) Urine pH (4.5-7.5) Ur Specific [place] (1.000-1.030) Urine Protein (Negative) Urine Glucose (UA) (Negative) Urine Ketones (Negative) Urine Blood (Negative) Urine Nitrite (Negative) Urine Bilirubin (Negative) Urine Urobilinogen (Negative) Ur Leukocyte Esterase (Negative) Urine WBC (Auto) (0-5) /hpf Urine RBC (Auto) (0-4) /hpf U Hyaline Cast (Auto) (0-5) /lpf U Epithel Cells (Auto) (0-5) /lpf Urine Bacteria (Auto) (Negative) Granular Casts (0) /lpf Urine Osmolality (500-800) mOsm/kg Nasal Screen MRSA (PCR) (Negative) Salicylates (2.8-20) mg/dl Urine Opiates Screen (Neg) Ur Methadone, Qual (Neg) Urine Barbiturates (Neg) Ur Phencyclidine (PCP) (Neg) U Amphetamin/Meth Scrn (Neg) MDMA (Ecstasy) Screen (Neg) U Benzodiazepines Scrn (Neg) Ur Cocaine Metabolite (Neg) U Marijuana (THC) Screen (Neg) COVID-19 Eval Order SARS-CoV-2 (PCR) (Negative) Influenza Type A (PCR) (Neg) Influenza Type B (PCR) (Neg) RSV (RT-PCR) (Neg) Blood Type Blood Type Recheck Antibody Screen Crossmatch 09/18/20 09/18/20 09/18/20 Range/Units 04:48 04:48 04:48 WBC (4.8-10.8) K/uL RBC (4.7-6.1) M/uL Hgb (14.0-18.0) g/dL POC Hgb (14.0-18.0) g/dl Hct (42-52) % POC Hct (42-52) % MCV (80-100) fL MCH (25-34) pg MCHC (32-36) g/dL RDW Std Deviation (36.4-46.3) fL RDW Coeff of Fermin (11.5-14.5) % Plt Count (130-400) K/uL MPV (7.4-10.4) fL Immature Gran % (Auto) % Neut % (Auto) % Lymph % (Auto) % [place] % (Auto) % Eos % (Auto) % Baso % (Auto) % Neut # (Auto) (1.4-6.5) K/uL Lymph # (Auto) (1.2-3.4) K/uL [place] # (Auto) (0.11-0.59) K/uL Eos # (Auto) (0-0.5) K/uL Baso # (Auto) (0-0.2) K/uL Immature Gran # (Auto) (0.00-0.02) K/uL Neutrophils % (Manual) % Lymphocytes % (Manual) % Monocytes % (Manual) % Myelocytes % (Man) % Neutrophils # (Manual) (1.4-6.5) K/uL Total Absolute Neuts (1.4-6.5) K/uL Lymphocytes # (Manual) (1.2-3.4) K/uL Total Abs Lymphocytes (1.2-3.4) K/uL Monocytes # (Manual) (0.11-0.59) K/uL Myelocytes # (Manual) (0-0) K/uL Platelet Estimate (Normal) PT INR APTT PTT Ratio Fibrinogen (184-400) mg/dl Sample Site POC pH (7.35-7.45) POC pCO2 (35-46) mmHg POC pO2 (80-95) mmHg POC HCO3 (19-24) katlin/L POC Base Excess (-9-1.8) katlin/L ABG pH (Temp Correct) (7.35-7.45) ABG pCO2 (Temp Corrct (35-46) mmHg POC ABG pO2 at Pt Temp POC ABG O2 Sat (90-95) % Dipak Test O2 Delivery Device POC O2 Rate Minute Ventilation POC FiO2 % Tidal Volume PEEP POC Sodium (135-144) mmol/L Sodium (136-145) mmol/L POC Potassium (3.3-5.0) mmol/L Potassium (3.5-5.1) mmol/L POC Chloride (101-112) mmol/L Chloride (98-107) mmol/L Carbon Dioxide (21-32) mmol/L POC Total CO2 (24-31) mmol/L Anion Gap (3-11) POC Anion Gap POC BUN (7-18) mg/dl BUN (7-18) mg/dl Creatinine (0.6-1.4) mg/dl POC Creatinine (0.6-1.3) mg/dl Est Cr Clr Drug Dosing Est GFR ( Amer) Est GFR (Non-Af Amer) BUN/Creatinine Ratio (10-20) Glucose (70-99) mg/dl POC Glucose (70-99) mg/dl POC Glucose (other) (70-99) mg/dl Estimat Average Glucose TNP Estimated Ave Glu mmol/L Estimated Ave Glu mg/dL Hemoglobin A1c TNP Hgb A1c Pathologist Com Osmolality (280-300) mOsm/kg Lactate (0.4-2.0) mmol/L Calcium (8.5-10.1) mg/dl POC Ioniz Calcium Marley (1.12-1.32) mmol/l Ionized Calcium (1.12-1.32) mmol/L Phosphorus (2.5-4.9) mg/dl Magnesium (1.8-2.4) mg/dl Total Bilirubin (0.2-1) mg/dl Direct Bilirubin (0-0.2) mg/dl AST (15-37) U/L ALT (12-78) U/L Alkaline Phosphatase (45-117) U/L Total Creatine Kinase (39-308) U/L Troponin I (0-0.045) ng/ml Total Protein (6.4-8.2) gm/dl Albumin (3.4-5.0) gm/dl Globulin (2.5-4.0) gm/dl Albumin/Globulin Ratio (0.9-2) Lipase (73-393) U/L Beta-Hydroxybutyric Acd (0.2-2.81) mg/dl Procalcitonin 1.68 H (0-0.5) ng/ml TSH (0.300-4.500) uIu/ml Random Cortisol 58.08 mcg/dl Urine Color Urine Appearance (Clear) Urine pH (4.5-7.5) Ur Specific [place] (1.000-1.030) Urine Protein (Negative) Urine Glucose (UA) (Negative) Urine Ketones (Negative) Urine Blood (Negative) Urine Nitrite (Negative) Urine Bilirubin (Negative) Urine Urobilinogen (Negative) Ur Leukocyte Esterase (Negative) Urine WBC (Auto) (0-5) /hpf Urine RBC (Auto) (0-4) /hpf U Hyaline Cast (Auto) (0-5) /lpf U Epithel Cells (Auto) (0-5) /lpf Urine Bacteria (Auto) (Negative) Granular Casts (0) /lpf Urine Osmolality (500-800) mOsm/kg Nasal Screen MRSA (PCR) (Negative) Salicylates (2.8-20) mg/dl Urine Opiates Screen (Neg) Ur Methadone, Qual (Neg) Urine Barbiturates (Neg) Ur Phencyclidine (PCP) (Neg) U Amphetamin/Meth Scrn (Neg) MDMA (Ecstasy) Screen (Neg) U Benzodiazepines Scrn (Neg) Ur Cocaine Metabolite (Neg) U Marijuana (THC) Screen (Neg) COVID-19 Eval Order SARS-CoV-2 (PCR) (Negative) Influenza Type A (PCR) (Neg) Influenza Type B (PCR) (Neg) RSV (RT-PCR) (Neg) Blood Type Blood Type Recheck Antibody Screen Crossmatch 09/18/20 09/18/20 09/18/20 Range/Units 04:48 04:48 04:48 WBC (4.8-10.8) K/uL RBC (4.7-6.1) M/uL Hgb (14.0-18.0) g/dL POC Hgb (14.0-18.0) g/dl Hct (42-52) % POC Hct (42-52) % MCV (80-100) fL MCH (25-34) pg MCHC (32-36) g/dL RDW Std Deviation (36.4-46.3) fL RDW Coeff of Fermin (11.5-14.5) % Plt Count (130-400) K/uL MPV (7.4-10.4) fL Immature Gran % (Auto) % Neut % (Auto) % Lymph % (Auto) % [place] % (Auto) % Eos % (Auto) % Baso % (Auto) % Neut # (Auto) (1.4-6.5) K/uL Lymph # (Auto) (1.2-3.4) K/uL [place] # (Auto) (0.11-0.59) K/uL Eos # (Auto) (0-0.5) K/uL Baso # (Auto) (0-0.2) K/uL Immature Gran # (Auto) (0.00-0.02) K/uL Neutrophils % (Manual) % Lymphocytes % (Manual) % Monocytes % (Manual) % Myelocytes % (Man) % Neutrophils # (Manual) (1.4-6.5) K/uL Total Absolute Neuts (1.4-6.5) K/uL Lymphocytes # (Manual) (1.2-3.4) K/uL Total Abs Lymphocytes (1.2-3.4) K/uL Monocytes # (Manual) (0.11-0.59) K/uL Myelocytes # (Manual) (0-0) K/uL Platelet Estimate (Normal) PT Cancelled INR Cancelled APTT Cancelled PTT Ratio Cancelled Fibrinogen (184-400) mg/dl Sample Site POC pH (7.35-7.45) POC pCO2 (35-46) mmHg POC pO2 (80-95) mmHg POC HCO3 (19-24) katlin/L POC Base Excess (-9-1.8) katlin/L ABG pH (Temp Correct) (7.35-7.45) ABG pCO2 (Temp Corrct (35-46) mmHg POC ABG pO2 at Pt Temp POC ABG O2 Sat (90-95) % Dipak Test O2 Delivery Device POC O2 Rate Minute Ventilation POC FiO2 % Tidal Volume PEEP POC Sodium (135-144) mmol/L Sodium (136-145) mmol/L POC Potassium (3.3-5.0) mmol/L Potassium (3.5-5.1) mmol/L POC Chloride (101-112) mmol/L Chloride (98-107) mmol/L Carbon Dioxide (21-32) mmol/L POC Total CO2 (24-31) mmol/L Anion Gap (3-11) POC Anion Gap POC BUN (7-18) mg/dl BUN (7-18) mg/dl Creatinine (0.6-1.4) mg/dl POC Creatinine (0.6-1.3) mg/dl Est Cr Clr Drug Dosing Est GFR ( Amer) Est GFR (Non-Af Amer) BUN/Creatinine Ratio (10-20) Glucose (70-99) mg/dl POC Glucose (70-99) mg/dl POC Glucose (other) (70-99) mg/dl Estimat Average Glucose Estimated Ave Glu mmol/L Estimated Ave Glu mg/dL Hemoglobin A1c Hgb A1c Pathologist Com Osmolality (280-300) mOsm/kg Lactate 14.3 H* (0.4-2.0) mmol/L Calcium (8.5-10.1) mg/dl POC Ioniz Calcium Marley (1.12-1.32) mmol/l Ionized Calcium 1.14 (1.12-1.32) mmol/L Phosphorus (2.5-4.9) mg/dl Magnesium (1.8-2.4) mg/dl Total Bilirubin (0.2-1) mg/dl Direct Bilirubin (0-0.2) mg/dl AST (15-37) U/L ALT (12-78) U/L Alkaline Phosphatase (45-117) U/L Total Creatine Kinase (39-308) U/L Troponin I (0-0.045) ng/ml Total Protein (6.4-8.2) gm/dl Albumin (3.4-5.0) gm/dl Globulin (2.5-4.0) gm/dl Albumin/Globulin Ratio (0.9-2) Lipase (73-393) U/L Beta-Hydroxybutyric Acd (0.2-2.81) mg/dl Procalcitonin (0-0.5) ng/ml TSH (0.300-4.500) uIu/ml Random Cortisol mcg/dl Urine Color Urine Appearance (Clear) Urine pH (4.5-7.5) Ur Specific [place] (1.000-1.030) Urine Protein (Negative) Urine Glucose (UA) (Negative) Urine Ketones (Negative) Urine Blood (Negative) Urine Nitrite (Negative) Urine Bilirubin (Negative) Urine Urobilinogen (Negative) Ur Leukocyte Esterase (Negative) Urine WBC (Auto) (0-5) /hpf Urine RBC (Auto) (0-4) /hpf U Hyaline Cast (Auto) (0-5) /lpf U Epithel Cells (Auto) (0-5) /lpf Urine Bacteria (Auto) (Negative) Granular Casts (0) /lpf Urine Osmolality (500-800) mOsm/kg Nasal Screen MRSA (PCR) (Negative) Salicylates (2.8-20) mg/dl Urine Opiates Screen (Neg) Ur Methadone, Qual (Neg) Urine Barbiturates (Neg) Ur Phencyclidine (PCP) (Neg) U Amphetamin/Meth Scrn (Neg) MDMA (Ecstasy) Screen (Neg) U Benzodiazepines Scrn (Neg) Ur Cocaine Metabolite (Neg) U Marijuana (THC) Screen (Neg) COVID-19 Eval Order SARS-CoV-2 (PCR) (Negative) Influenza Type A (PCR) (Neg) Influenza Type B (PCR) (Neg) RSV (RT-PCR) (Neg) Blood Type Blood Type Recheck Antibody Screen Crossmatch 09/18/20 09/18/20 09/18/20 Range/Units 04:48 04:48 04:13 WBC 18.02 H (4.8-10.8) K/uL RBC 4.11 L (4.7-6.1) M/uL Hgb 10.3 L (14.0-18.0) g/dL POC Hgb (14.0-18.0) g/dl Hct 31.2 L (42-52) % POC Hct (42-52) % MCV 75.9 L (80-100) fL MCH 25.1 (25-34) pg MCHC 33.0 (32-36) g/dL RDW Std Deviation (36.4-46.3) fL RDW Coeff of Fermin (11.5-14.5) % Plt Count 112 L (130-400) K/uL MPV (7.4-10.4) fL Immature Gran % (Auto) % Neut % (Auto) % Lymph % (Auto) % [place] % (Auto) % Eos % (Auto) % Baso % (Auto) % Neut # (Auto) (1.4-6.5) K/uL Lymph # (Auto) (1.2-3.4) K/uL [place] # (Auto) (0.11-0.59) K/uL Eos # (Auto) (0-0.5) K/uL Baso # (Auto) (0-0.2) K/uL Immature Gran # (Auto) (0.00-0.02) K/uL Neutrophils % (Manual) 70.0 % Lymphocytes % (Manual) 27.0 % Monocytes % (Manual) 2.0 % Myelocytes % (Man) 1.0 % Neutrophils # (Manual) 12.61 H (1.4-6.5) K/uL Total Absolute Neuts 12.61 H (1.4-6.5) K/uL Lymphocytes # (Manual) 4.87 H (1.2-3.4) K/uL Total Abs Lymphocytes 4.87 H (1.2-3.4) K/uL Monocytes # (Manual) 0.36 (0.11-0.59) K/uL Myelocytes # (Manual) 0.18 H (0-0) K/uL Platelet Estimate Decreased L (Normal) PT INR APTT PTT Ratio Fibrinogen (184-400) mg/dl Sample Site POC pH (7.35-7.45) POC pCO2 (35-46) mmHg POC pO2 (80-95) mmHg POC HCO3 (19-24) katlin/L POC Base Excess (-9-1.8) katlin/L ABG pH (Temp Correct) (7.35-7.45) ABG pCO2 (Temp Corrct (35-46) mmHg POC ABG pO2 at Pt Temp POC ABG O2 Sat (90-95) % Dipak Test O2 Delivery Device POC O2 Rate Minute Ventilation POC FiO2 % Tidal Volume PEEP POC Sodium (135-144) mmol/L Sodium 141 (136-145) mmol/L POC Potassium (3.3-5.0) mmol/L Potassium 2.2 L* (3.5-5.1) mmol/L POC Chloride (101-112) mmol/L Chloride 102 (98-107) mmol/L Carbon Dioxide 7 L* (21-32) mmol/L POC Total CO2 (24-31) mmol/L Anion Gap 32.0 H (3-11) POC Anion Gap POC BUN (7-18) mg/dl BUN 45 H (7-18) mg/dl Creatinine 3.53 H (0.6-1.4) mg/dl POC Creatinine (0.6-1.3) mg/dl Est Cr Clr Drug Dosing 42.0 Est GFR ( Amer) 27.0 Est GFR (Non-Af Amer) 23.3 BUN/Creatinine Ratio 12.9 (10-20) Glucose 967 H* (70-99) mg/dl POC Glucose (70-99) mg/dl POC Glucose (other) > 700 H* (70-99) mg/dl Estimat Average Glucose Estimated Ave Glu mmol/L Estimated Ave Glu mg/dL Hemoglobin A1c Hgb A1c Pathologist Com Osmolality (280-300) mOsm/kg Lactate (0.4-2.0) mmol/L Calcium 7.9 L (8.5-10.1) mg/dl POC Ioniz Calcium [place] (1.12-1.32) mmol/l Ionized Calcium (1.12-1.32) mmol/L Phosphorus 6.4 H D (2.5-4.9) mg/dl Magnesium 7.2 H* (1.8-2.4) mg/dl Total Bilirubin 1.2 H D (0.2-1) mg/dl Direct Bilirubin 0.7 H (0-0.2) mg/dl AST 2599 H (15-37) U/L ALT 2087 H (12-78) U/L Alkaline Phosphatase 110 (45-117) U/L Total Creatine Kinase 2698 H (39-308) U/L Troponin I 0.179 H* (0-0.045) ng/ml Total Protein 4.6 L D (6.4-8.2) gm/dl Albumin 2.1 L (3.4-5.0) gm/dl Globulin (2.5-4.0) gm/dl Albumin/Globulin Ratio (0.9-2) Lipase 28315 H (73-393) U/L Beta-Hydroxybutyric Acd 87.21 H (0.2-2.81) mg/dl Procalcitonin (0-0.5) ng/ml TSH (0.300-4.500) uIu/ml Random Cortisol mcg/dl Urine Color Urine Appearance (Clear) Urine pH (4.5-7.5) Ur Specific [place] (1.000-1.030) Urine Protein (Negative) Urine Glucose (UA) (Negative) Urine Ketones (Negative) Urine Blood (Negative) Urine Nitrite (Negative) Urine Bilirubin (Negative) Urine Urobilinogen (Negative) Ur Leukocyte Esterase (Negative) Urine WBC (Auto) (0-5) /hpf Urine RBC (Auto) (0-4) /hpf U Hyaline Cast (Auto) (0-5) /lpf U Epithel Cells (Auto) (0-5) /lpf Urine Bacteria (Auto) (Negative) Granular Casts (0) /lpf Urine Osmolality (500-800) mOsm/kg Nasal Screen MRSA (PCR) (Negative) Salicylates (2.8-20) mg/dl Urine Opiates Screen (Neg) Ur Methadone, Qual (Neg) Urine Barbiturates (Neg) Ur Phencyclidine (PCP) (Neg) U Amphetamin/Meth Scrn (Neg) MDMA (Ecstasy) Screen (Neg) U Benzodiazepines Scrn (Neg) Ur Cocaine Metabolite (Neg) U Marijuana (THC) Screen (Neg) COVID-19 Eval Order SARS-CoV-2 (PCR) (Negative) Influenza Type A (PCR) (Neg) Influenza Type B (PCR) (Neg) RSV (RT-PCR) (Neg) Blood Type Blood Type Recheck Antibody Screen Crossmatch 09/18/20 09/18/20 09/18/20 Range/Units 03:08 02:21 01:30 WBC (4.8-10.8) K/uL RBC (4.7-6.1) M/uL Hgb (14.0-18.0) g/dL POC Hgb 10.5 L (14.0-18.0) g/dl Hct (42-52) % POC Hct 31 L (42-52) % MCV (80-100) fL MCH (25-34) pg MCHC (32-36) g/dL RDW Std Deviation (36.4-46.3) fL RDW Coeff of Fermin (11.5-14.5) % Plt Count (130-400) K/uL MPV (7.4-10.4) fL Immature Gran % (Auto) % Neut % (Auto) % Lymph % (Auto) % [place] % (Auto) % Eos % (Auto) % Baso % (Auto) % Neut # (Auto) (1.4-6.5) K/uL Lymph # (Auto) (1.2-3.4) K/uL [place] # (Auto) (0.11-0.59) K/uL Eos # (Auto) (0-0.5) K/uL Baso # (Auto) (0-0.2) K/uL Immature Gran # (Auto) (0.00-0.02) K/uL Neutrophils % (Manual) % Lymphocytes % (Manual) % Monocytes % (Manual) % Myelocytes % (Man) % Neutrophils # (Manual) (1.4-6.5) K/uL Total Absolute Neuts (1.4-6.5) K/uL Lymphocytes # (Manual) (1.2-3.4) K/uL Total Abs Lymphocytes (1.2-3.4) K/uL Monocytes # (Manual) (0.11-0.59) K/uL Myelocytes # (Manual) (0-0) K/uL Platelet Estimate (Normal) PT INR APTT PTT Ratio Fibrinogen (184-400) mg/dl Sample Site Art Line POC pH 6.96 L* (7.35-7.45) POC pCO2 25 L (35-46) mmHg POC pO2 152 H (80-95) mmHg POC HCO3 6 L (19-24) katlin/L POC Base Excess -26.0 L (-9-1.8) katlin/L ABG pH (Temp Correct) 7.028 L* (7.35-7.45) ABG pCO2 (Temp Corrct 19 L (35-46) mmHg POC ABG pO2 at Pt Temp 119 POC ABG O2 Sat 98.0 H (90-95) % Dipak Test NA O2 Delivery Device Ventilator POC O2 Rate 30 Minute Ventilation 18 POC FiO2 35 % Tidal Volume 600 PEEP 5 POC Sodium 137 (135-144) mmol/L Sodium (136-145) mmol/L POC Potassium < 2.0 L* (3.3-5.0) mmol/L Potassium (3.5-5.1) mmol/L POC Chloride (101-112) mmol/L Chloride (98-107) mmol/L Carbon Dioxide (21-32) mmol/L POC Total CO2 6 L* (24-31) mmol/L Anion Gap (3-11) POC Anion Gap POC BUN (7-18) mg/dl BUN (7-18) mg/dl Creatinine (0.6-1.4) mg/dl POC Creatinine (0.6-1.3) mg/dl Est Cr Clr Drug Dosing Est GFR ( Amer) Est GFR (Non-Af Amer) BUN/Creatinine Ratio (10-20) Glucose (70-99) mg/dl POC Glucose (70-99) mg/dl POC Glucose (other) > 700 H* (70-99) mg/dl Estimat Average Glucose Estimated Ave Glu mmol/L Estimated Ave Glu mg/dL Hemoglobin A1c Hgb A1c Pathologist Com Osmolality (280-300) mOsm/kg Lactate (0.4-2.0) mmol/L Calcium (8.5-10.1) mg/dl POC Ioniz Calcium [place] (1.12-1.32) mmol/l Ionized Calcium (1.12-1.32) mmol/L Phosphorus (2.5-4.9) mg/dl Magnesium (1.8-2.4) mg/dl Total Bilirubin (0.2-1) mg/dl Direct Bilirubin (0-0.2) mg/dl AST (15-37) U/L ALT (12-78) U/L Alkaline Phosphatase (45-117) U/L Total Creatine Kinase (39-308) U/L Troponin I (0-0.045) ng/ml Total Protein (6.4-8.2) gm/dl Albumin (3.4-5.0) gm/dl Globulin (2.5-4.0) gm/dl Albumin/Globulin Ratio (0.9-2) Lipase (73-393) U/L Beta-Hydroxybutyric Acd (0.2-2.81) mg/dl Procalcitonin (0-0.5) ng/ml TSH (0.300-4.500) uIu/ml Random Cortisol mcg/dl Urine Color Urine Appearance (Clear) Urine pH (4.5-7.5) Ur Specific [place] (1.000-1.030) Urine Protein (Negative) Urine Glucose (UA) (Negative) Urine Ketones (Negative) Urine Blood (Negative) Urine Nitrite (Negative) Urine Bilirubin (Negative) Urine Urobilinogen (Negative) Ur Leukocyte Esterase (Negative) Urine WBC (Auto) (0-5) /hpf Urine RBC (Auto) (0-4) /hpf U Hyaline Cast (Auto) (0-5) /lpf U Epithel Cells (Auto) (0-5) /lpf Urine Bacteria (Auto) (Negative) Granular Casts (0) /lpf Urine Osmolality 423 L (500-800) mOsm/kg Nasal Screen MRSA (PCR) (Negative) Salicylates (2.8-20) mg/dl Urine Opiates Screen (Neg) Ur Methadone, Qual (Neg) Urine Barbiturates (Neg) Ur Phencyclidine (PCP) (Neg) U Amphetamin/Meth Scrn (Neg) MDMA (Ecstasy) Screen (Neg) U Benzodiazepines Scrn (Neg) Ur Cocaine Metabolite (Neg) U Marijuana (THC) Screen (Neg) COVID-19 Eval Order SARS-CoV-2 (PCR) (Negative) Influenza Type A (PCR) (Neg) Influenza Type B (PCR) (Neg) RSV (RT-PCR) (Neg) Blood Type Blood Type Recheck Antibody Screen Crossmatch 09/18/20 09/18/20 09/18/20 Range/Units 00:57 00:57 00:57 WBC (4.8-10.8) K/uL RBC (4.7-6.1) M/uL Hgb (14.0-18.0) g/dL POC Hgb (14.0-18.0) g/dl Hct (42-52) % POC Hct (42-52) % MCV (80-100) fL MCH (25-34) pg MCHC (32-36) g/dL RDW Std Deviation (36.4-46.3) fL RDW Coeff of Fermin (11.5-14.5) % Plt Count (130-400) K/uL MPV (7.4-10.4) fL Immature Gran % (Auto) % Neut % (Auto) % Lymph % (Auto) % [place] % (Auto) % Eos % (Auto) % Baso % (Auto) % Neut # (Auto) (1.4-6.5) K/uL Lymph # (Auto) (1.2-3.4) K/uL [place] # (Auto) (0.11-0.59) K/uL Eos # (Auto) (0-0.5) K/uL Baso # (Auto) (0-0.2) K/uL Immature Gran # (Auto) (0.00-0.02) K/uL Neutrophils % (Manual) % Lymphocytes % (Manual) % Monocytes % (Manual) % Myelocytes % (Man) % Neutrophils # (Manual) (1.4-6.5) K/uL Total Absolute Neuts (1.4-6.5) K/uL Lymphocytes # (Manual) (1.2-3.4) K/uL Total Abs Lymphocytes (1.2-3.4) K/uL Monocytes # (Manual) (0.11-0.59) K/uL Myelocytes # (Manual) (0-0) K/uL Platelet Estimate (Normal) PT INR APTT PTT Ratio Fibrinogen (184-400) mg/dl Sample Site POC pH (7.35-7.45) POC pCO2 (35-46) mmHg POC pO2 (80-95) mmHg POC HCO3 (19-24) katlin/L POC Base Excess (-9-1.8) katlin/L ABG pH (Temp Correct) (7.35-7.45) ABG pCO2 (Temp Corrct (35-46) mmHg POC ABG pO2 at Pt Temp POC ABG O2 Sat (90-95) % Dipak Test O2 Delivery Device POC O2 Rate Minute Ventilation POC FiO2 % Tidal Volume PEEP POC Sodium (135-144) mmol/L Sodium (136-145) mmol/L POC Potassium (3.3-5.0) mmol/L Potassium (3.5-5.1) mmol/L POC Chloride (101-112) mmol/L Chloride (98-107) mmol/L Carbon Dioxide (21-32) mmol/L POC Total CO2 (24-31) mmol/L Anion Gap (3-11) POC Anion Gap POC BUN (7-18) mg/dl BUN (7-18) mg/dl Creatinine (0.6-1.4) mg/dl POC Creatinine (0.6-1.3) mg/dl Est Cr Clr Drug Dosing Est GFR ( Amer) Est GFR (Non-Af Amer) BUN/Creatinine Ratio (10-20) Glucose (70-99) mg/dl POC Glucose (70-99) mg/dl POC Glucose (other) (70-99) mg/dl Estimat Average Glucose Estimated Ave Glu mmol/L Estimated Ave Glu mg/dL Hemoglobin A1c Hgb A1c Pathologist Com Osmolality (280-300) mOsm/kg Lactate (0.4-2.0) mmol/L Calcium (8.5-10.1) mg/dl POC Ioniz Calcium [place] (1.12-1.32) mmol/l Ionized Calcium (1.12-1.32) mmol/L Phosphorus (2.5-4.9) mg/dl Magnesium (1.8-2.4) mg/dl Total Bilirubin (0.2-1) mg/dl Direct Bilirubin (0-0.2) mg/dl AST (15-37) U/L ALT (12-78) U/L Alkaline Phosphatase (45-117) U/L Total Creatine Kinase 1679 H (39-308) U/L Troponin I 0.037 (0-0.045) ng/ml Total Protein (6.4-8.2) gm/dl Albumin (3.4-5.0) gm/dl Globulin (2.5-4.0) gm/dl Albumin/Globulin Ratio (0.9-2) Lipase 06705 H (73-393) U/L Beta-Hydroxybutyric Acd (0.2-2.81) mg/dl Procalcitonin (0-0.5) ng/ml TSH (0.300-4.500) uIu/ml Random Cortisol mcg/dl Urine Color Urine Appearance (Clear) Urine pH (4.5-7.5) Ur Specific [place] (1.000-1.030) Urine Protein (Negative) Urine Glucose (UA) (Negative) Urine Ketones (Negative) Urine Blood (Negative) Urine Nitrite (Negative) Urine Bilirubin (Negative) Urine Urobilinogen (Negative) Ur Leukocyte Esterase (Negative) Urine WBC (Auto) (0-5) /hpf Urine RBC (Auto) (0-4) /hpf U Hyaline Cast (Auto) (0-5) /lpf U Epithel Cells (Auto) (0-5) /lpf Urine Bacteria (Auto) (Negative) Granular Casts (0) /lpf Urine Osmolality (500-800) mOsm/kg Nasal Screen MRSA (PCR) (Negative) Salicylates 2.6 L (2.8-20) mg/dl Urine Opiates Screen (Neg) Ur Methadone, Qual (Neg) Urine Barbiturates (Neg) Ur Phencyclidine (PCP) (Neg) U Amphetamin/Meth Scrn (Neg) MDMA (Ecstasy) Screen (Neg) U Benzodiazepines Scrn (Neg) Ur Cocaine Metabolite (Neg) U Marijuana (THC) Screen (Neg) COVID-19 Eval Order SARS-CoV-2 (PCR) (Negative) Influenza Type A (PCR) (Neg) Influenza Type B (PCR) (Neg) RSV (RT-PCR) (Neg) Blood Type Blood Type Recheck A Positive Antibody Screen Crossmatch 09/18/20 09/18/20 09/18/20 Range/Units 00:57 00:57 00:57 WBC (4.8-10.8) K/uL RBC (4.7-6.1) M/uL Hgb (14.0-18.0) g/dL POC Hgb (14.0-18.0) g/dl Hct (42-52) % POC Hct (42-52) % MCV (80-100) fL MCH (25-34) pg MCHC (32-36) g/dL RDW Std Deviation (36.4-46.3) fL RDW Coeff of Fermin (11.5-14.5) % Plt Count (130-400) K/uL MPV (7.4-10.4) fL Immature Gran % (Auto) % Neut % (Auto) % Lymph % (Auto) % [place] % (Auto) % Eos % (Auto) % Baso % (Auto) % Neut # (Auto) (1.4-6.5) K/uL Lymph # (Auto) (1.2-3.4) K/uL [place] # (Auto) (0.11-0.59) K/uL Eos # (Auto) (0-0.5) K/uL Baso # (Auto) (0-0.2) K/uL Immature Gran # (Auto) (0.00-0.02) K/uL Neutrophils % (Manual) % Lymphocytes % (Manual) % Monocytes % (Manual) % Myelocytes % (Man) % Neutrophils # (Manual) (1.4-6.5) K/uL Total Absolute Neuts (1.4-6.5) K/uL Lymphocytes # (Manual) (1.2-3.4) K/uL Total Abs Lymphocytes (1.2-3.4) K/uL Monocytes # (Manual) (0.11-0.59) K/uL Myelocytes # (Manual) (0-0) K/uL Platelet Estimate (Normal) PT INR APTT PTT Ratio Fibrinogen (184-400) mg/dl Sample Site POC pH (7.35-7.45) POC pCO2 (35-46) mmHg POC pO2 (80-95) mmHg POC HCO3 (19-24) katlin/L POC Base Excess (-9-1.8) [place]/L ABG pH (Temp Correct) (7.35-7.45) ABG pCO2 (Temp Corrct (35-46) mmHg POC ABG pO2 at Pt Temp POC ABG O2 Sat (90-95) % Dipak Test O2 Delivery Device POC O2 Rate Minute Ventilation POC FiO2 % [place] Volume PEEP POC Sodium (135-144) mmol/L Sodium (136-145) mmol/L POC Potassium (3.3-5.0) mmol/L Potassium (3.5-5.1) mmol/L POC Chloride (101-112) mmol/L Chloride (98-107) mmol/L Carbon Dioxide (21-32) mmol/L POC Total CO2 (24-31) mmol/L Anion Gap (3-11) POC Anion Gap POC BUN (7-18) mg/dl BUN (7-18) mg/dl Creatinine (0.6-1.4) mg/dl POC Creatinine (0.6-1.3) mg/dl Est Cr Clr Drug Dosing Est GFR ( Amer) Est GFR (Non-Af Amer) BUN/Creatinine Ratio (10-20) Glucose (70-99) mg/dl POC Glucose (70-99) mg/dl POC Glucose (other) (70-99) mg/dl Estimat Average Glucose Estimated Ave Glu mmol/L Estimated Ave Glu mg/dL Hemoglobin A1c Hgb A1c Pathologist Com Osmolality 387 H* (280-300) mOsm/kg Lactate 15.3 H* (0.4-2.0) mmol/L Calcium (8.5-10.1) mg/dl POC Ioniz Calcium Mar[place] (1.12-1.32) mmol/l Ionized Calcium 1.29 (1.12-1.32) mmol/L Phosphorus (2.5-4.9) mg/dl Magnesium (1.8-2.4) mg/dl Total Bilirubin (0.2-1) mg/dl Direct Bilirubin (0-0.2) mg/dl AST (15-37) U/L ALT (12-78) U/L Alkaline Phosphatase (45-117) U/L Total Creatine Kinase (39-308) U/L Troponin I (0-0.045) ng/ml Total Protein (6.4-8.2) gm/dl Albumin (3.4-5.0) gm/dl Globulin (2.5-4.0) gm/dl Albumin/Globulin Ratio (0.9-2) Lipase (73-393) U/L Beta-Hydroxybutyric Acd (0.2-2.81) mg/dl Procalcitonin (0-0.5) ng/ml TSH (0.300-4.500) uIu/ml Random Cortisol mcg/dl Urine Color Urine Appearance (Clear) Urine pH (4.5-7.5) Ur Specific [place] (1.000-1.030) Urine Protein (Negative) Urine Glucose (UA) (Negative) Urine Ketones (Negative) Urine Blood (Negative) Urine Nitrite (Negative) Urine Bilirubin (Negative) Urine Urobilinogen (Negative) Ur Leukocyte Esterase (Negative) Urine WBC (Auto) (0-5) /hpf Urine RBC (Auto) (0-4) /hpf U Hyaline Cast (Auto) (0-5) /lpf U Epithel Cells (Auto) (0-5) /lpf Urine Bacteria (Auto) (Negative) Granular Casts (0) /lpf Urine Osmolality (500-800) mOsm/kg Nasal Screen MRSA (PCR) (Negative) Salicylates (2.8-20) mg/dl Urine Opiates Screen (Neg) Ur Methadone, Qual (Neg) Urine Barbiturates (Neg) Ur Phencyclidine (PCP) (Neg) U Amphetamin/Meth Scrn (Neg) MDMA (Ecstasy) Screen (Neg) U Benzodiazepines Scrn (Neg) Ur Cocaine Metabolite (Neg) U Marijuana (THC) Screen (Neg) COVID-19 Eval Order SARS-CoV-2 (PCR) (Negative) Influenza Type A (PCR) (Neg) Influenza Type B (PCR) (Neg) RSV (RT-PCR) (Neg) Blood Type Blood Type Recheck Antibody Screen Crossmatch 09/18/20 09/18/20 09/18/20 Range/Units 00:57 00:57 00:40 WBC (4.8-10.8) K/uL RBC (4.7-6.1) M/uL Hgb 11.0 L (14.0-18.0) g/dL POC Hgb (14.0-18.0) g/dl Hct 32.3 L (42-52) % POC Hct (42-52) % MCV (80-100) fL MCH (25-34) pg MCHC (32-36) g/dL RDW Std Deviation (36.4-46.3) fL RDW Coeff of Fermin (11.5-14.5) % Plt Count (130-400) K/uL MPV (7.4-10.4) fL Immature Gran % (Auto) % Neut % (Auto) % Lymph % (Auto) % [place] % (Auto) % Eos % (Auto) % Baso % (Auto) % Neut # (Auto) (1.4-6.5) K/uL Lymph # (Auto) (1.2-3.4) K/uL [place] # (Auto) (0.11-0.59) K/uL Eos # (Auto) (0-0.5) K/uL Baso # (Auto) (0-0.2) K/uL Immature Gran # (Auto) (0.00-0.02) K/uL Neutrophils % (Manual) % Lymphocytes % (Manual) % Monocytes % (Manual) % Myelocytes % (Man) % Neutrophils # (Manual) (1.4-6.5) K/uL Total Absolute Neuts (1.4-6.5) K/uL Lymphocytes # (Manual) (1.2-3.4) K/uL Total Abs Lymphocytes (1.2-3.4) K/uL Monocytes # (Manual) (0.11-0.59) K/uL Myelocytes # (Manual) (0-0) K/uL Platelet Estimate (Normal) PT INR APTT PTT Ratio Fibrinogen (184-400) mg/dl Sample Site POC pH (7.35-7.45) POC pCO2 (35-46) mmHg POC pO2 (80-95) mmHg POC HCO3 (19-24) katlin/L POC Base Excess (-9-1.8) katlin/L ABG pH (Temp Correct) (7.35-7.45) ABG pCO2 (Temp Corrct (35-46) mmHg POC ABG pO2 at Pt Temp POC ABG O2 Sat (90-95) % Dipak Test O2 Delivery Device POC O2 Rate Minute Ventilation POC FiO2 % Tidal Volume PEEP POC Sodium (135-144) mmol/L Sodium 145 (136-145) mmol/L POC Potassium (3.3-5.0) mmol/L Potassium 2.3 L* D (3.5-5.1) mmol/L POC Chloride (101-112) mmol/L Chloride 103 (98-107) mmol/L Carbon Dioxide 7 L* (21-32) mmol/L POC Total CO2 (24-31) mmol/L Anion Gap 35.0 H (3-11) POC Anion Gap POC BUN (7-18) mg/dl BUN 43 H (7-18) mg/dl Creatinine 3.56 H D (0.6-1.4) mg/dl POC Creatinine (0.6-1.3) mg/dl Est Cr Clr Drug Dosing Not Reportable Est GFR ( Amer) 26.7 Est GFR (Non-Af Amer) 23.1 BUN/Creatinine Ratio 12.1 (10-20) Glucose 954 H* (70-99) mg/dl POC Glucose (70-99) mg/dl POC Glucose (other) > 700 H* (70-99) mg/dl Estimat Average Glucose Estimated Ave Glu mmol/L Estimated Ave Glu mg/dL Hemoglobin A1c Hgb A1c Pathologist Com Osmolality (280-300) mOsm/kg Lactate (0.4-2.0) mmol/L Calcium 9.0 (8.5-10.1) mg/dl POC Ioniz Calcium Marley (1.12-1.32) mmol/l Ionized Calcium (1.12-1.32) mmol/L Phosphorus 8.8 H (2.5-4.9) mg/dl Magnesium 6.9 H* (1.8-2.4) mg/dl Total Bilirubin (0.2-1) mg/dl Direct Bilirubin (0-0.2) mg/dl AST (15-37) U/L ALT (12-78) U/L Alkaline Phosphatase (45-117) U/L Total Creatine Kinase (39-308) U/L Troponin I (0-0.045) ng/ml Total Protein (6.4-8.2) gm/dl Albumin (3.4-5.0) gm/dl Globulin (2.5-4.0) gm/dl Albumin/Globulin Ratio (0.9-2) Lipase (73-393) U/L Beta-Hydroxybutyric Acd 111.16 H (0.2-2.81) mg/dl Procalcitonin (0-0.5) ng/ml TSH (0.300-4.500) uIu/ml Random Cortisol mcg/dl Urine Color Urine Appearance (Clear) Urine pH (4.5-7.5) Ur Specific [place] (1.000-1.030) Urine Protein (Negative) Urine Glucose (UA) (Negative) Urine Ketones (Negative) Urine Blood (Negative) Urine Nitrite (Negative) Urine Bilirubin (Negative) Urine Urobilinogen (Negative) Ur Leukocyte Esterase (Negative) Urine WBC (Auto) (0-5) /hpf Urine RBC (Auto) (0-4) /hpf U Hyaline Cast (Auto) (0-5) /lpf U Epithel Cells (Auto) (0-5) /lpf Urine Bacteria (Auto) (Negative) Granular Casts (0) /lpf Urine Osmolality (500-800) mOsm/kg Nasal Screen MRSA (PCR) (Negative) Salicylates (2.8-20) mg/dl Urine Opiates Screen (Neg) Ur Methadone, Qual (Neg) Urine Barbiturates (Neg) Ur Phencyclidine (PCP) (Neg) U Amphetamin/Meth Scrn (Neg) MDMA (Ecstasy) Screen (Neg) U Benzodiazepines Scrn (Neg) Ur Cocaine Metabolite (Neg) U Marijuana (THC) Screen (Neg) COVID-19 Eval Order SARS-CoV-2 (PCR) (Negative) Influenza Type A (PCR) (Neg) Influenza Type B (PCR) (Neg) RSV (RT-PCR) (Neg) Blood Type Blood Type Recheck Antibody Screen Crossmatch 09/18/20 09/18/20 09/17/20 Range/Units 00:02 00:01 23:24 WBC (4.8-10.8) K/uL RBC (4.7-6.1) M/uL Hgb (14.0-18.0) g/dL POC Hgb 10.9 L (14.0-18.0) g/dl Hct (42-52) % POC Hct 32 L (42-52) % MCV (80-100) fL MCH (25-34) pg MCHC (32-36) g/dL RDW Std Deviation (36.4-46.3) fL RDW Coeff of Fermin (11.5-14.5) % Plt Count (130-400) K/uL MPV (7.4-10.4) fL Immature Gran % (Auto) % Neut % (Auto) % Lymph % (Auto) % [place] % (Auto) % Eos % (Auto) % Baso % (Auto) % Neut # (Auto) (1.4-6.5) K/uL Lymph # (Auto) (1.2-3.4) K/uL [place] # (Auto) (0.11-0.59) K/uL Eos # (Auto) (0-0.5) K/uL Baso # (Auto) (0-0.2) K/uL Immature Gran # (Auto) (0.00-0.02) K/uL Neutrophils % (Manual) % Lymphocytes % (Manual) % Monocytes % (Manual) % Myelocytes % (Man) % Neutrophils # (Manual) (1.4-6.5) K/uL Total Absolute Neuts (1.4-6.5) K/uL Lymphocytes # (Manual) (1.2-3.4) K/uL Total Abs Lymphocytes (1.2-3.4) K/uL Monocytes # (Manual) (0.11-0.59) K/uL Myelocytes # (Manual) (0-0) K/uL Platelet Estimate (Normal) PT INR APTT PTT Ratio Fibrinogen (184-400) mg/dl Sample Site Art Line POC pH 6.86 L* (7.35-7.45) POC pCO2 30 L (35-46) mmHg POC pO2 291 H (80-95) mmHg POC HCO3 5 L (19-24) katlin/L POC Base Excess -28.0 L (-9-1.8) katlin/L ABG pH (Temp Correct) 6.934 L* (7.35-7.45) ABG pCO2 (Temp Corrct 23 L (35-46) mmHg POC ABG pO2 at Pt Temp 260 POC ABG O2 Sat 100.0 H (90-95) % Dipak Test NA O2 Delivery Device Ventilator POC O2 Rate 30 Minute Ventilation 20.4 POC FiO2 50 % Tidal Volume 600 PEEP 5 POC Sodium 138 (135-144) mmol/L Sodium (136-145) mmol/L POC Potassium 2.8 L (3.3-5.0) mmol/L Potassium (3.5-5.1) mmol/L POC Chloride (101-112) mmol/L Chloride (98-107) mmol/L Carbon Dioxide (21-32) mmol/L POC Total CO2 6 L* (24-31) mmol/L Anion Gap (3-11) POC Anion Gap POC BUN (7-18) mg/dl BUN (7-18) mg/dl Creatinine (0.6-1.4) mg/dl POC Creatinine (0.6-1.3) mg/dl Est Cr Clr Drug Dosing Est GFR ( Amer) Est GFR (Non-Af Amer) BUN/Creatinine Ratio (10-20) Glucose (70-99) mg/dl POC Glucose (70-99) mg/dl POC Glucose (other) (70-99) mg/dl Estimat Average Glucose Estimated Ave Glu mmol/L Estimated Ave Glu mg/dL Hemoglobin A1c Hgb A1c Pathologist Com Osmolality (280-300) mOsm/kg Lactate (0.4-2.0) mmol/L Calcium (8.5-10.1) mg/dl POC Ioniz Calcium Marley (1.12-1.32) mmol/l Ionized Calcium (1.12-1.32) mmol/L Phosphorus (2.5-4.9) mg/dl Magnesium (1.8-2.4) mg/dl Total Bilirubin (0.2-1) mg/dl Direct Bilirubin (0-0.2) mg/dl AST (15-37) U/L ALT (12-78) U/L Alkaline Phosphatase (45-117) U/L Total Creatine Kinase (39-308) U/L Troponin I (0-0.045) ng/ml Total Protein (6.4-8.2) gm/dl Albumin (3.4-5.0) gm/dl Globulin (2.5-4.0) gm/dl Albumin/Globulin Ratio (0.9-2) Lipase (73-393) U/L Beta-Hydroxybutyric Acd (0.2-2.81) mg/dl Procalcitonin (0-0.5) ng/ml TSH (0.300-4.500) uIu/ml Random Cortisol mcg/dl Urine Color Urine Appearance (Clear) Urine pH (4.5-7.5) Ur Specific [place] (1.000-1.030) Urine Protein (Negative) Urine Glucose (UA) (Negative) Urine Ketones (Negative) Urine Blood (Negative) Urine Nitrite (Negative) Urine Bilirubin (Negative) Urine Urobilinogen (Negative) Ur Leukocyte Esterase (Negative) Urine WBC (Auto) (0-5) /hpf Urine RBC (Auto) (0-4) /hpf U Hyaline Cast (Auto) (0-5) /lpf U Epithel Cells (Auto) (0-5) /lpf Urine Bacteria (Auto) (Negative) Granular Casts (0) /lpf Urine Osmolality (500-800) mOsm/kg Nasal Screen MRSA (PCR) Negative (Negative) Salicylates (2.8-20) mg/dl Urine Opiates Screen (Neg) Ur Methadone, Qual (Neg) Urine Barbiturates (Neg) Ur Phencyclidine (PCP) (Neg) U Amphetamin/Meth Scrn (Neg) MDMA (Ecstasy) Screen (Neg) U Benzodiazepines Scrn (Neg) Ur Cocaine Metabolite (Neg) U Marijuana (THC) Screen (Neg) COVID-19 Eval Order SARS-CoV-2 (PCR) NEGATIVE (Negative) Influenza Type A (PCR) Negative (Neg) Influenza Type B (PCR) Negative (Neg) RSV (RT-PCR) Negative (Neg) Blood Type Blood Type Recheck Antibody Screen Crossmatch 09/17/20 09/17/20 09/17/20 Range/Units 23:24 23:03 22:43 WBC (4.8-10.8) K/uL RBC (4.7-6.1) M/uL Hgb (14.0-18.0) g/dL POC Hgb 10.2 L (14.0-18.0) g/dl Hct (42-52) % POC Hct 30 L (42-52) % MCV (80-100) fL MCH (25-34) pg MCHC (32-36) g/dL RDW Std Deviation (36.4-46.3) fL RDW Coeff of Fermin (11.5-14.5) % Plt Count (130-400) K/uL MPV (7.4-10.4) fL Immature Gran % (Auto) % Neut % (Auto) % Lymph % (Auto) % [place] % (Auto) % Eos % (Auto) % Baso % (Auto) % Neut # (Auto) (1.4-6.5) K/uL Lymph # (Auto) (1.2-3.4) K/uL [place] # (Auto) (0.11-0.59) K/uL Eos # (Auto) (0-0.5) K/uL Baso # (Auto) (0-0.2) K/uL Immature Gran # (Auto) (0.00-0.02) K/uL Neutrophils % (Manual) % Lymphocytes % (Manual) % Monocytes % (Manual) % Myelocytes % (Man) % Neutrophils # (Manual) (1.4-6.5) K/uL Total Absolute Neuts (1.4-6.5) K/uL Lymphocytes # (Manual) (1.2-3.4) K/uL Total Abs Lymphocytes (1.2-3.4) K/uL Monocytes # (Manual) (0.11-0.59) K/uL Myelocytes # (Manual) (0-0) K/uL Platelet Estimate (Normal) PT INR APTT PTT Ratio Fibrinogen (184-400) mg/dl Sample Site POC pH 7.01 L* (7.35-7.45) POC pCO2 57 H (35-46) mmHg POC pO2 > 420 H (80-95) mmHg POC HCO3 14 L (19-24) katlin/L POC Base Excess -17.0 L (-9-1.8) katiln/L ABG pH (Temp Correct) (7.35-7.45) ABG pCO2 (Temp Corrct (35-46) mmHg POC ABG pO2 at Pt Temp POC ABG O2 Sat 100.0 H (90-95) % Dipak Test O2 Delivery Device POC O2 Rate Minute Ventilation POC FiO2 % Tidal Volume PEEP POC Sodium 144 (135-144) mmol/L Sodium 148 H (136-145) mmol/L POC Potassium 2.8 L (3.3-5.0) mmol/L Potassium 3.1 L D (3.5-5.1) mmol/L POC Chloride (101-112) mmol/L Chloride 111 H (98-107) mmol/L Carbon Dioxide 7 L* (21-32) mmol/L POC Total CO2 16 L (24-31) mmol/L Anion Gap 30.0 H (3-11) POC Anion Gap POC BUN (7-18) mg/dl BUN 37 H (7-18) mg/dl Creatinine 3.10 H (0.6-1.4) mg/dl POC Creatinine (0.6-1.3) mg/dl Est Cr Clr Drug Dosing Not Reportable Est GFR ( Amer) 31.6 Est GFR (Non-Af Amer) 27.3 BUN/Creatinine Ratio 11.9 (10-20) Glucose 693 H* (70-99) mg/dl POC Glucose (70-99) mg/dl POC Glucose (other) (70-99) mg/dl Estimat Average Glucose Estimated Ave Glu mmol/L Estimated Ave Glu mg/dL Hemoglobin A1c Hgb A1c Pathologist Com Osmolality (280-300) mOsm/kg Lactate (0.4-2.0) mmol/L Calcium 9.3 D (8.5-10.1) mg/dl POC Ioniz Calcium [place] (1.12-1.32) mmol/l Ionized Calcium (1.12-1.32) mmol/L Phosphorus (2.5-4.9) mg/dl Magnesium 5.2 H* (1.8-2.4) mg/dl Total Bilirubin (0.2-1) mg/dl Direct Bilirubin (0-0.2) mg/dl AST (15-37) U/L ALT (12-78) U/L Alkaline Phosphatase (45-117) U/L Total Creatine Kinase (39-308) U/L Troponin I (0-0.045) ng/ml Total Protein (6.4-8.2) gm/dl Albumin (3.4-5.0) gm/dl Globulin (2.5-4.0) gm/dl Albumin/Globulin Ratio (0.9-2) Lipase (73-393) U/L Beta-Hydroxybutyric Acd 103.50 H (0.2-2.81) mg/dl Procalcitonin (0-0.5) ng/ml TSH (0.300-4.500) uIu/ml Random Cortisol mcg/dl Urine Color Urine Appearance (Clear) Urine pH (4.5-7.5) Ur Specific [place] (1.000-1.030) Urine Protein (Negative) Urine Glucose (UA) (Negative) Urine Ketones (Negative) Urine Blood (Negative) Urine Nitrite (Negative) Urine Bilirubin (Negative) Urine Urobilinogen (Negative) Ur Leukocyte Esterase (Negative) Urine WBC (Auto) (0-5) /hpf Urine RBC (Auto) (0-4) /hpf U Hyaline Cast (Auto) (0-5) /lpf U Epithel Cells (Auto) (0-5) /lpf Urine Bacteria (Auto) (Negative) Granular Casts (0) /lpf Urine Osmolality (500-800) mOsm/kg Nasal Screen MRSA (PCR) (Negative) Salicylates (2.8-20) mg/dl Urine Opiates Screen (Neg) Ur Methadone, Qual (Neg) Urine Barbiturates (Neg) Ur Phencyclidine (PCP) (Neg) U Amphetamin/Meth Scrn (Neg) MDMA (Ecstasy) Screen (Neg) U Benzodiazepines Scrn (Neg) Ur Cocaine Metabolite (Neg) U Marijuana (THC) Screen (Neg) COVID-19 Eval Order [facility] at [facility] SARS-CoV-2 (PCR) (Negative) Influenza Type A (PCR) (Neg) Influenza Type B (PCR) (Neg) RSV (RT-PCR) (Neg) Blood Type Blood Type Recheck Antibody Screen Crossmatch 09/17/20 09/17/20 09/17/20 Range/Units 22:38 22:22 22:22 WBC (4.8-10.8) K/uL RBC (4.7-6.1) M/uL Hgb (14.0-18.0) g/dL POC Hgb (14.0-18.0) g/dl Hct (42-52) % POC Hct (42-52) % MCV (80-100) fL MCH (25-34) pg MCHC (32-36) g/dL RDW Std Deviation (36.4-46.3) fL RDW Coeff of Fermin (11.5-14.5) % Plt Count (130-400) K/uL MPV (7.4-10.4) fL Immature Gran % (Auto) % Neut % (Auto) % Lymph % (Auto) % [place] % (Auto) % Eos % (Auto) % Baso % (Auto) % Neut # (Auto) (1.4-6.5) K/uL Lymph # (Auto) (1.2-3.4) K/uL [place] # (Auto) (0.11-0.59) K/uL Eos # (Auto) (0-0.5) K/uL Baso # (Auto) (0-0.2) K/uL Immature Gran # (Auto) (0.00-0.02) K/uL Neutrophils % (Manual) % Lymphocytes % (Manual) % Monocytes % (Manual) % Myelocytes % (Man) % Neutrophils # (Manual) (1.4-6.5) K/uL Total Absolute Neuts (1.4-6.5) K/uL Lymphocytes # (Manual) (1.2-3.4) K/uL Total Abs Lymphocytes (1.2-3.4) K/uL Monocytes # (Manual) (0.11-0.59) K/uL Myelocytes # (Manual) (0-0) K/uL Platelet Estimate (Normal) PT INR APTT PTT Ratio Fibrinogen (184-400) mg/dl Sample Site POC pH (7.35-7.45) POC pCO2 (35-46) mmHg POC pO2 (80-95) mmHg POC HCO3 (19-24) katlin/L POC Base Excess (-9-1.8) katlin/L ABG pH (Temp Correct) (7.35-7.45) ABG pCO2 (Temp Corrct (35-46) mmHg POC ABG pO2 at Pt Temp POC ABG O2 Sat (90-95) % Dipak Test O2 Delivery Device POC O2 Rate Minute Ventilation POC FiO2 % Tidal Volume PEEP POC Sodium (135-144) mmol/L Sodium (136-145) mmol/L POC Potassium (3.3-5.0) mmol/L Potassium (3.5-5.1) mmol/L POC Chloride (101-112) mmol/L Chloride (98-107) mmol/L Carbon Dioxide (21-32) mmol/L POC Total CO2 (24-31) mmol/L Anion Gap (3-11) POC Anion Gap POC BUN (7-18) mg/dl BUN (7-18) mg/dl Creatinine (0.6-1.4) mg/dl POC Creatinine (0.6-1.3) mg/dl Est Cr Clr Drug Dosing Est GFR ( Amer) Est GFR (Non-Af Amer) BUN/Creatinine Ratio (10-20) Glucose (70-99) mg/dl POC Glucose > 600 H* (70-99) mg/dl POC Glucose (other) (70-99) mg/dl Estimat Average Glucose Estimated Ave Glu mmol/L Estimated Ave Glu mg/dL Hemoglobin A1c Hgb A1c Pathologist Com Osmolality (280-300) mOsm/kg Lactate (0.4-2.0) mmol/L Calcium (8.5-10.1) mg/dl POC Ioniz Calcium [place] (1.12-1.32) mmol/l Ionized Calcium (1.12-1.32) mmol/L Phosphorus (2.5-4.9) mg/dl Magnesium (1.8-2.4) mg/dl Total Bilirubin (0.2-1) mg/dl Direct Bilirubin (0-0.2) mg/dl AST (15-37) U/L ALT (12-78) U/L Alkaline Phosphatase (45-117) U/L Total Creatine Kinase (39-308) U/L Troponin I (0-0.045) ng/ml Total Protein (6.4-8.2) gm/dl Albumin (3.4-5.0) gm/dl Globulin (2.5-4.0) gm/dl Albumin/Globulin Ratio (0.9-2) Lipase (73-393) U/L Beta-Hydroxybutyric Acd (0.2-2.81) mg/dl Procalcitonin (0-0.5) ng/ml TSH (0.300-4.500) uIu/ml Random Cortisol mcg/dl Urine Color Yellow Urine Appearance Clear (Clear) Urine pH 5.0 (4.5-7.5) Ur Specific [place] 1.025 (1.000-1.030) Urine Protein 1+ H (Negative) Urine Glucose (UA) 3+ H (Negative) Urine Ketones 3+ H (Negative) Urine Blood 3+ H (Negative) Urine Nitrite Negative (Negative) Urine Bilirubin Negative (Negative) Urine Urobilinogen Negative (Negative) Ur Leukocyte Esterase Negative (Negative) Urine WBC (Auto) 1-5 (0-5) /hpf Urine RBC (Auto) 0-4 (0-4) /hpf U Hyaline Cast (Auto) 5-10 H (0-5) /lpf U Epithel Cells (Auto) >30 H (0-5) /lpf Urine Bacteria (Auto) Negative (Negative) Granular Casts 5-10 H (0) /lpf Urine Osmolality (500-800) mOsm/kg Nasal Screen MRSA (PCR) (Negative) Salicylates (2.8-20) mg/dl Urine Opiates Screen Neg (Neg) Ur Methadone, Qual Neg (Neg) Urine Barbiturates Neg (Neg) Ur Phencyclidine (PCP) Neg (Neg) U Amphetamin/Meth Scrn Neg (Neg) MDMA (Ecstasy) Screen Neg (Neg) U Benzodiazepines Scrn Neg (Neg) Ur Cocaine Metabolite Neg (Neg) U Marijuana (THC) Screen Neg (Neg) COVID-19 Eval Order SARS-CoV-2 (PCR) (Negative) Influenza Type A (PCR) (Neg) Influenza Type B (PCR) (Neg) RSV (RT-PCR) (Neg) Blood Type Blood Type Recheck Antibody Screen Crossmatch 09/17/20 09/17/20 09/17/20 Range/Units 22:03 22:00 22:00 WBC 10.57 (4.8-10.8) K/uL RBC 4.49 L (4.7-6.1) M/uL Hgb 11.4 L (14.0-18.0) g/dL POC Hgb 11.2 L (14.0-18.0) g/dl Hct 34.1 L (42-52) % POC Hct 33 L (42-52) % MCV 75.9 L (80-100) fL MCH 25.4 (25-34) pg MCHC 33.4 (32-36) g/dL RDW Std Deviation 44.8 (36.4-46.3) fL RDW Coeff of Fermin 16.2 H (11.5-14.5) % Plt Count 175 (130-400) K/uL MPV 11.2 H (7.4-10.4) fL Immature Gran % (Auto) 1.7 % Neut % (Auto) 64.5 % Lymph % (Auto) 24.1 % [place] % (Auto) 9.5 % Eos % (Auto) 0.1 % Baso % (Auto) 0.1 % Neut # (Auto) 6.82 H (1.4-6.5) K/uL Lymph # (Auto) 2.55 (1.2-3.4) K/uL [place] # (Auto) 1.00 H (0.11-0.59) K/uL Eos # (Auto) 0.01 (0-0.5) K/uL Baso # (Auto) 0.01 (0-0.2) K/uL Immature Gran # (Auto) 0.18 H (0.00-0.02) K/uL Neutrophils % (Manual) % Lymphocytes % (Manual) % Monocytes % (Manual) % Myelocytes % (Man) % Neutrophils # (Manual) (1.4-6.5) K/uL Total Absolute Neuts (1.4-6.5) K/uL Lymphocytes # (Manual) (1.2-3.4) K/uL Total Abs Lymphocytes (1.2-3.4) K/uL Monocytes # (Manual) (0.11-0.59) K/uL Myelocytes # (Manual) (0-0) K/uL Platelet Estimate (Normal) PT INR APTT PTT Ratio Fibrinogen (184-400) mg/dl Sample Site POC pH (7.35-7.45) POC pCO2 (35-46) mmHg POC pO2 (80-95) mmHg POC HCO3 (19-24) katlin/L POC Base Excess (-9-1.8) katlin/L ABG pH (Temp Correct) (7.35-7.45) ABG pCO2 (Temp Corrct (35-46) mmHg POC ABG pO2 at Pt Temp POC ABG O2 Sat (90-95) % Dipak Test O2 Delivery Device POC O2 Rate Minute Ventilation POC FiO2 % Tidal Volume PEEP POC Sodium 140 (135-144) mmol/L Sodium 145 (136-145) mmol/L POC Potassium < 2.0 L* (3.3-5.0) mmol/L Potassium 2.0 L* (3.5-5.1) mmol/L POC Chloride 112 (101-112) mmol/L Chloride 107 (98-107) mmol/L Carbon Dioxide 10 L (21-32) mmol/L POC Total CO2 11 L (24-31) mmol/L Anion Gap 28.0 H (3-11) POC Anion Gap TNP POC BUN 44 H (7-18) mg/dl BUN 39 H (7-18) mg/dl Creatinine 3.27 H (0.6-1.4) mg/dl POC Creatinine 2.5 H (0.6-1.3) mg/dl Est Cr Clr Drug Dosing Not Reportable Est GFR ( Amer) 29.6 Est GFR (Non-Af Amer) 25.6 BUN/Creatinine Ratio 11.8 (10-20) Glucose 800 H* (70-99) mg/dl POC Glucose (70-99) mg/dl POC Glucose (other) > 700 H* (70-99) mg/dl Estimat Average Glucose Estimated Ave Glu mmol/L Estimated Ave Glu mg/dL Hemoglobin A1c Hgb A1c Pathologist Com Osmolality (280-300) mOsm/kg Lactate (0.4-2.0) mmol/L Calcium 11.7 H (8.5-10.1) mg/dl POC Ioniz Calcium [place] 1.60 H* (1.12-1.32) mmol/l Ionized Calcium (1.12-1.32) mmol/L Phosphorus (2.5-4.9) mg/dl Magnesium 5.2 H* (1.8-2.4) mg/dl Total Bilirubin 0.6 (0.2-1) mg/dl Direct Bilirubin (0-0.2) mg/dl AST 723 H (15-37) U/L ALT 631 H (12-78) U/L Alkaline Phosphatase 71 (45-117) U/L Total Creatine Kinase (39-308) U/L Troponin I 0.022 (0-0.045) ng/ml Total Protein 5.7 L (6.4-8.2) gm/dl Albumin 2.8 L (3.4-5.0) gm/dl Globulin 2.9 (2.5-4.0) gm/dl Albumin/Globulin Ratio 1.0 (0.9-2) Lipase (73-393) U/L Beta-Hydroxybutyric Acd (0.2-2.81) mg/dl Procalcitonin (0-0.5) ng/ml TSH 1.760 (0.300-4.500) uIu/ml Random Cortisol mcg/dl Urine Color Urine Appearance (Clear) Urine pH (4.5-7.5) Ur Specific [place] (1.000-1.030) Urine Protein (Negative) Urine Glucose (UA) (Negative) Urine Ketones (Negative) Urine Blood (Negative) Urine Nitrite (Negative) Urine Bilirubin (Negative) Urine Urobilinogen (Negative) Ur Leukocyte Esterase (Negative) Urine WBC (Auto) (0-5) /hpf Urine RBC (Auto) (0-4) /hpf U Hyaline Cast (Auto) (0-5) /lpf U Epithel Cells (Auto) (0-5) /lpf Urine Bacteria (Auto) (Negative) Granular Casts (0) /lpf Urine Osmolality (500-800) mOsm/kg Nasal Screen MRSA (PCR) (Negative) Salicylates (2.8-20) mg/dl Urine Opiates Screen (Neg) Ur Methadone, Qual (Neg) Urine Barbiturates (Neg) Ur Phencyclidine (PCP) (Neg) U Amphetamin/Meth Scrn (Neg) MDMA (Ecstasy) Screen (Neg) U Benzodiazepines Scrn (Neg) Ur Cocaine Metabolite (Neg) U Marijuana (THC) Screen (Neg) COVID-19 Eval Order SARS-CoV-2 (PCR) (Negative) Influenza Type A (PCR) (Neg) Influenza Type B (PCR) (Neg) RSV (RT-PCR) (Neg) Blood Type Blood Type Recheck Antibody Screen Crossmatch Medications Administered Current Inpatient Medications Albuterol (Albut/Ipratrop 3mg/0.5mg Neb 3 Ml Vial) 3 ml INH Q4H PRN PRN Reason: Dyspnea Stop: 10/18/20 00:22 Dextrose (Dextrose 50% 50 Ml Syringe) 25 - 50 ml IV UD PRN; Protocol PRN Reason: Hypoglycemia Protocol Stop: 10/18/20 01:59 Glucagon (Glucagon For Inj 1 Mg Vial) 1 mg SQ UD PRN; Protocol PRN Reason: Hypoglycemia Protocol Stop: 10/18/20 01:59 Glucose (Glucose 40% Gel 15 Gm Tube) 15 - 30 gm PO UD PRN; Protocol PRN Reason: Hypoglycemia Protocol Stop: 10/18/20 01:59 Glucose (Glucose 10 Tabs/Tube) 4 - 8 tabs PO UD PRN; Protocol PRN Reason: Hypoglycemia Protocol Stop: 10/18/20 01:59 Vasopressin 20 units/ Sodium (Chloride) 101 mls @ 12.12 mls/hr IV .Q8H20M [facility] Stop: 10/17/20 22:44 Last Admin: 09/18/20 13:11 Dose: 0.04 unit/min, 12.1 mls/hr Documented by: Insulin Human Regular 250 (units/ Sodium Chloride) 250 mls @ 6.7 mls/hr IV .Q24H [facility]; Protocol Stop: 10/17/20 22:44 Last Titration: 09/18/20 13:33 Dose: 6.7 units/hr, 6.7 mls/hr Documented by: Epinephrine HCl () 16 mg in 250 mls @ 52.969 mls/hr IV .Q4H44M [facility]; Protocol Stop: 10/17/20 22:59 Last Admin: 09/18/20 13:14 Dose: 0.7 mcg/kg/min, 74.2 mls/hr Documented by: Famotidine 20 mg/ Syringe 5 mls @ 2.5 mls/min IV Q12 [facility] Stop: 10/18/20 00:22 Last Admin: 09/18/20 08:02 Dose: 2.5 mls/min Documented by: Norepinephrine Bitartrate (Levophed/D5w) 32 mg in 250 mls @ 25.313 mls/hr IV .Q9H53M [facility]; Protocol Stop: 10/18/20 04:29 Last Admin: 09/18/20 10:28 Dose: 1 mcg/kg/min, 50.6 mls/hr Documented by: Sodium Chloride (Nss) 250 mls @ 15 mls/hr IV .[id number] PRN PRN Reason: For Transfusion Stop: 09/18/20 19:45 Sodium Chloride (Nss) 250 mls @ 15 mls/hr IV .[id number] PRN PRN Reason: For Transfusion Stop: 09/18/20 20:21 Sodium Chloride (Nss) 250 mls @ 15 mls/hr IV .[id number] PRN PRN Reason: For Transfusion Stop: 09/18/20 20:22 Sodium Bicarbonate 150 meq/Potassium Chloride 40 meq/Dextrose 1,170 mls @ 250 mls/hr IV .Q4H41M [facility] Stop: 10/18/20 10:44 Last Admin: 09/18/20 11:00 Dose: 250 mls/hr Documented by: Meropenem 500 mg/ Syringe 10 mls @ 2 mls/min IV Q8H [facility]; Protocol Stop: 09/20/20 12:44 Last Admin: 09/18/20 13:10 Dose: 2 mls/min Documented by: Insulin Aspart (Insulin Aspart 100 Units/Ml 3 Ml Pen) 0 units SC ACHS [facility] Stop: 10/18/20 07:29 Last Admin: 09/18/20 11:38 Dose: Not Given Documented by: Miscellaneous (Carbohydrates For Hypoglycemia ) 15 - 30 gm PO UD PRN PRN Reason: Hypoglycemia Treatment Stop: 10/18/20 01:59 Miscellaneous Information (Pharmacy Glycemic Mgmt Consult) 1 ea N/A UD PRN PRN Reason: Consult Stop: 10/18/20 00:30 Miscellaneous Information (Meropenem Consult Acitve) 1 ea N/A UD PRN PRN Reason: Consult Stop: 10/18/20 12:17 Potassium Chloride (Potassium Chloride 20 Meq/15 Ml Udc) 40 meq NG Q4H [facility] Stop: 09/19/20 06:01 Last Admin: 09/18/20 13:13 Dose: Not Given Documented by: Resident Activity Tracking Resident Involvement: Resident Care Provided Care Provided: Adult Hospital Medicine
--- NOTE | 2020-09-18 14:21 | Communication Note ---
Date of Service: September 18, 2020 Patient is continued to progressively decline. He has no significant neurological function based on my bedside assessment including minimally reactive/nonreactive pupils and no corneal or oculocephalic reflexes. No withdrawal to painful stimulus. In addition the patient is now developed progressive abdominal distention. His abdomen is firm to palpation with no bowel sounds. Given the fact that his hemoglobin has dropped fairly precipitously from 11 down to 7 concerned about intra-abdominal hemorrhage. Bladder pressures were checked and his bladder pressures are above 40 consistent with a diagnosis of abdominal compartment syndrome. We will discuss with general surgery although I do not think the patient is a candidate for decompressive laparotomy. His risk of anesthesia would be exceedingly high given the fact that he is on 3 pressors currently. I am not sure that this is a salvageable situation. We are now having issues ventilating the patient. He is having high peak alarms likely secondary to his abdominal compartment syndrome. He has been an uric. If the patient is not felt to be a candidate for any therapy for his abdominal compartment syndrome, I think this condition is likely fatal. I did discuss with his sister, Jazmin again by phone. She will speak with other family members and get back with us. I did discuss potential transitioning him to comfort care as we are keeping him alive with our interventions of what were doing currently and if these were stopped I suspect he would relatively quickly. Additional critical care time: 45 minutes Coding Level of Care Code Critical Care neil silverman 30 min
--- NOTE | 2020-09-18 15:21 | Electrocardiogram Report ---
Test Reason : Blood Pressure : / mmHG Vent. Rate : 078 BPM Atrial Rate : 078 BPM P-R Int : 146 ms QRS Dur : 102 ms QT Int : 386 ms P-R-T Axes : 000 076 -31 degrees QTc Int : 440 ms Normal sinus rhythm Diffuse Nonspecific ST and T wave abnormality Abnormal ECG When compared with ECG of 18-SEP-2020 12:08, No significant change Confirmed by Teja West ([id number]) on 09/18/2020 3:21:32 PM Referred By: Beverly CHUNG Confirmed By:Teja West
[2020-09-18 16:05] LABS: Hematocrit (blood only) 13.5 % (42-52); Hemoglobin 4.3 g/dL (14.0-18.0)
--- NOTE | 2020-09-18 16:27 | Communication Note ---
Date of Service: September 18, 2020 Called to bedside again as the patient was becoming progressively more hypotensive despite aggressive care. Lab values demonstrated persistent anemia despite blood products. Neurologically he shown no improvement. Discussed with sister and was waiting for callback however they are now unreachable and do not appear to be answering the phone. Updated the [facility]. At this point time I think the patient's care is approaching futility as he continues to require high-dose vasopressor agents, has evidence of ongoing bleeding with possible intra-abdominal process and is not felt to be a candidate for surgical intervention due to high risk for anesthesia. In addition, he appears neurologically compromised. His abdominal compartment syndrome is not being addressed and will likely result in progressive respiratory insufficiency and progressive renal failure without surgical intervention. At this point in time the patient's estimated mortality is greater than 98% based on a SAPSII score of 90. We briefly performed a round of CPR and I pushed additional epinephrine and bicarb as I was attempting to get a hold of family however they are not reachable. I do not think that additional CPR or cardioversion at this point time will offer the patient any hope of any meaningful recovery and the most appropriate and humane thing at this point in time would be to discontinue supportive care and allow the patient to comfortably. We are currently awaiting direction from the [facility] as well as hopefully a call back from Cristian. I will give a small amount of fentanyl currently. His attending hospitalist will also be notified. Additional critical care time: 40 minutes Coding Level of Care Code Critical Care neil mckeont'l 30 min
[2020-09-18] MEDS ORDERED: MoRPHine SULFATE 2 MG/ML CARP IV STA (16:30)
[2020-09-18 16:32] LABS: BUN Creatinine Ratio 10.3 (10-20); Calcium 7.9 mg/dl (8.5-10.1); Creatinine Clr Calc Pharmacy 42.6 ml/min; Est GFR (African American) 27.5; Est GFR (Non-African American) 23.7; Magnesium 5.5 mg/dl (1.8-2.4); Potassium 7.5 mmol/L (3.5-5.1)
[2020-09-18] MEDS ORDERED: MoRPHine SULFATE 2 MG/ML CARP ONE (16:34)
[2020-09-18 16:42] LABS: Beta-Hydroxybutyrate 25.37 mg/dl (0.2-2.81)
[2020-09-18 16:49] LABS: Phosphorus 10.1 mg/dl (2.5-4.9)
[2020-09-18] MEDS ORDERED: MoRPHine SULFATE 2 MG/ML CARP IV PRN (17:19)
[2020-09-18] MEDS ORDERED: MIDAZOLAM HCL 1 MG/ML 2ML VIAL IV PRN (17:19)
--- NOTE | 2020-09-18 17:54 | Death Pronouncement Note ---
Date of Service September 18, 2020 Pronouncement Note Admission Date Admission Date: September 17, 2020 Date and Time of Date of : 09/18/20 Time of : 17:44 PCOD Preliminary cause of : Respiratory arrest before cardiac arrest Contributing Factors (1) Multisystem organ failure: (2) Metabolic acidosis: (3) Diabetes: (4) DKA (diabetic ketoacidoses): (5) Hypothermia: (6) Abnormal LFTs: (7) Hypermagnesemia: Hospital Course Hospital Course: 20-year-old male who reportedly had not been feeling well yesterday, and presented to the [facility] with flulike symptoms. He was found to have blood sugar over 600 while there, and went into cardiac arrest. Summary Additional details: Reported to bedside with telemetry demonstrating asystole. Rashawn Sandy was not called overhead following discussions with family regarding medical futility in further resuscitative efforts following continuation of maximal vasopressor agents for maintenance of continually declining blood pressure. Additional Data Confirmation of : no pulse, no respirations, no heart sounds and pupils fixed and dilated Family: contacted (informed Cristian Cunningham) Attending/PCP notified?: Yes Attending physician: Renee Noel MD Was code activated?: No Autopsy requested?: No station examiner notified?: Yes Organ bank notified?: Yes Advance directives: No
[2020-09-19 02:37] LABS: EAG mmol/L 19.4 (calc); HA1C 13.8 (<5.7)
--- NOTE | 2020-09-25 11:51 | Discharge Summary ---
Date of Service September 25, 2020 Admission HPI Per Admitting Provider The patient is a 20-year-old male who reportedly had not been feeling well yesterday, and presented to the [facility] with flulike symptoms. He was found to have blood sugar over 600 while there, was given insulin 20 units subcu, and went into cardiac arrest. EMS found the patient to be in asystole, had an IO placed, CPR was started, and received 3 rounds of epinephrine and amp of calcium and 2 A of bicarb. They did obtain ROSC, the patient was intubated and transferred to [facility] ED. Pertinent laboratories: COVID-19 negative, hemoglobin 11.4, ABG showed a pH of 7.01, PCO2 57, PO2 greater than 420, bicarb 14 and O2 sat 100.0. Sodium 148 potassium 3.1, chloride 111, bicarb 7, BUN 37, creatinine 3.10 glucose is 693. Magnesium is 5.2, AST 723, ALT 631, total CK 1679, albumin 2.8, beta hydroxybutyric acid 103.50 urine drug screen was negative. Chest x-ray was normal. While in the ED, patient was started on insulin drip, norepinephrine drip, bicarbonate drip and vasopressin drip. Admission Exam Per Admitting Provider The patient is unresponsive, intubated, normocephalic and atraumatic. HEENT--PERRL, EOMI, mucous membranes and oropharynx dry. Neck--No JVD. No bruits. Thyroid normal, trachea midline, no adenopathy. Heart--irregularly irregular. Intermittently normal. No murmurs, rubs or gallops. Lungs--clear bilaterally. Abdomen--normal bowel sounds and soft. Nontender. Nondistended. Mildly obese Extremities--no cyanosis or clubbing. No edema. Dermatologic--normal skin turgor, normal color, no abnormal lymph nodes, no rash. Neurologic--limited exam Rheumatologic--deferred Psychiatric--unresponsive Principal Diagnosis Respiratory arrest prior to cardiac arrest secondary to multisystem organ failure secondary to metabolic acidosis secondary to diabetes secondary to DKA secondary to hypothermia complicated by hypothermia, abnormal LFTs, hyp omagnesemia Discharge Exam Deferred secondary to ICU status please see associated autopsy Discharge Data Allergies Allergy/AdvReac Type Severity Reaction Status Date / Time No Known Allergies Allergy Unverified 09/17/20 23:22 Consultations 09/17/20 23:00 ED Decision to Admit Stat 09/18/20 00:23 Consult Case Management - Discharge Planning Routine Consult Mechanical Shovel Operator Routine 09/18/20 05:14 Consult Nephrology Routine Ordered Studies 09/17/20 21:38 CT abd pelvis wo con Urgent CT chest diagnostic wo con Urgent 09/17/20 21:39 CT head/brain wo con Urgent Hospital Course (1) Multisystem organ failure: 20-year-old male with a history of obesity and no documented history of diabetes presented with severe DKA resulting in an [id number] cardiac arrest with ROSC obtained in the field. Patient currently unstable with multiorgan failure in the ICU. #DKA with severe metabolic acidosis resulting in multisystem organ failure Patient without a significant history of diabetes, has had about 1 week of nausea vomiting and abdominal pain treated in the [facility]. Subsequently progressed to cardiac arrest, uncertain of timing of insulin administration and blood sugar measurement. At some point during the event he was given 20 units of subcu insulin and blood sugar measurement was obtained demonstrating a blood sugar of 600. Patient was brought to the [facility] emergency department and subsequently transferred to the ICU, Due to significant metabolic acidosis associated with the DKA he experienced a cardiac arrest in the field. A1c was greater than 12. In the ICU every attempt was made to stabilize the patient including maximum pressor support, insulin administration and therapeutic cooling. Despite the best attempt to the ICU physicians the patient's likely prolonged DKA and corresponding extreme metabolic acidosis, ultimately resulted in multisystem organ failure which proved to be fatal. Throughout the admission the patient's severe metabolic acidosis continued to worsen despite maximal therapy leading to cardiac arrest, respiratory arrest, the patient's mortality risk was determined to be greater than 90% based on the SAP SS to score of 90, and attempted CPR was made while attending attempted to contact the family however they were not reachable. ICU physicians felt that additional CPR cardioversion at that point would offer the patient any meaningful recovery and the most appropriate new main thing would be to discontinue supportive care. The patient was allowed to comfortably. FENa:NPO Intubated Code Status:Full Dispo:ICU - overall prognosis - very poor Jose Sanchez MD PGY 2, FCM (2) Metabolic acidosis: (3) Diabetes: (4) DKA (diabetic ketoacidoses): (5) Hypothermia: (6) Abnormal LFTs: (7) Hypermagnesemia: Total Time Total Time Spent Total Time Spent (In Minutes): 32 Discharge Plan Discharge Items Patient Disposition: Discharge Diagnosis: Multisystem organ failure Resident Activity Tracking Resident Involvement: Resident Care Provided Care Provided: Adult Hospital Medicine
--- NOTE | 2020-09-29 13:51 | Coding Query ---
CODING QUERY To promote full compliance with coding requirements relating to patient care, provider participation is requested in all cases of web site specialist uncertainty. Please assist us with the question(s) below: Coding Question(s): Respiratory Failure is documented on the 09/17/20 Critical Care Consultation and Respiratory Arrest is documented on the Discharge Summary. Please specify below in your clinical opinion. ( ) Respiratory Failure - Present On Admission. Please specify further below: ( ) Acute Respiratory Failure ( ) Chronic Respiratory Failure ( ) Acute on Chronic Respiratory Failure ( ) Unspecified Respiratory Failure ( ) ( ) Respiratory Failure - Present On Admission. Please specify further below: ( ) Acute Respiratory Failure ( ) Chronic Respiratory Failure ( ) Acute on Chronic Respiratory Failure ( ) Unspecified Respiratory Failure ( x ) Respiratory Arrest ( x ) Present on Admission ( ) Not Present on Admission Physician's Response(s): Thank you Gail Montez Principal Diagnosis: "that condition established after study, to be chiefly responsible for occasioning the admission of the patient to the hospital for care." Co-Existing Principal Diagnosis: "when two or more diagnoses equally meet the criteria for principal diagnosis as determined by the circumstances of admission, diagnostic work up, and/or therapy provided, and the Alphabetic Index, Tabular List, or another coding guideline does not provide sequencing direction, any one of the diagnoses may be sequenced first." "When the physician has documented what appears to be a current diagnosis in the body of the record, but has not included the diagnosis in the final diagnostic statement, the physician should be asked whether the diagnosis should be added." (Source Coding [facility] 2 QTR90. p3-4) RADHA
== END 2020-09-18 19:45 | disposition expired | DRG 637 ==
LOC: ED 21:50 → 1E 23:11 → SUATTDRO 23:11 → 1E 23:20